=== PATIENT | male | born 1950 | race Caucasian/White ===

== ENCOUNTER 2020-08-03 16:25 | Outpatient (REF) | payer MEDICARE, SELFPAY | END 2020-08-03 16:26 | disposition home or self-care (01) | LOC: HO.LAB 16:25 | PROVIDERS: PCP Internal Medicine; Visit Provider Internal Medicine | DX: Z20.828 Contact with and (suspected) exposure to other viral communicable diseases (principal) | CPT/HCPCS: 87635 ==

== ENCOUNTER 2021-05-31 15:26 | Outpatient (REF) | payer MEDICARE, SELFPAY ==
[2021-05-31 15:50] LABS: MANUAL DIFF FLAG NO
[2021-05-31 15:56] LABS: Basophils Percent Auto 0.7 % (0-2); Eosinophils Absolute Auto 0.1 X10*3/uL (0.0-0.4); Hematocrit 51.4 % (42-52); Hemoglobin 17.1 g/dl (14.0-18.0); Imm Gran Abs Auto 0.01 X10*3/uL (0.00-0.03); Imm Gran Pct Auto 0.2 % (0.0-0.4); Lymphocytes Absolute Auto 1.9 X10*3/uL (1.2-4.9); Lymphocytes Percent Auto 32.3 % (20-40); Mean Corpuscular HGB Conc 33.3 g/dl (31.0-36.0); Mean Corpuscular Hemoglobin 32.3 pg (27.0-33.0); Mean Platelet Volume 8.7 fL (9.4-12.4); Monocytes Absolute Auto 0.8 X10*3/uL (0.1-1.2); Monocytes Percent Auto 12.7 % (2-11); Neutrophils Absolute Auto 3.2 X10*3/uL (2.0-8.3); Neutrophils Percent Auto 53.1 % (45-73); Platelet Count 275 X10*3/uL (160-400); Red Cell Distribution Width 13.7 % (11.0-16.0)
[2021-05-31 16:02] LABS: Estimated Average Glucose 120 mg/dL; Hemoglobin A1c % 5.8 %
[2021-05-31 16:12] LABS: Cholesterol 137 mg/dL; HDL Cholesterol 36 mg/dL; LDL Cholesterol Calculated 88 mg/dl; Triglycerides 67 mg/dL
[2021-05-31 16:46] LABS: Vitamin B12 235 pg/mL (200-900)
[2021-05-31 17:13] LABS: Free T4 (Free Thyroxine) 0.97 ng/dL (0.71-1.85); Thyroid Stimulating Hormone 2.36 uIU/mL (0.32-4.0)
[2021-05-31 17:20] LABS: Prostate Specific Antigen Scr 2.05 ng/mL (<0.05-4.0)
== END 2021-05-31 15:27 | disposition home or self-care (01) ==
LOC: HO.LAB 15:26
PROVIDERS: Visit Provider Internal Medicine
DX: I10 Essential (primary) hypertension (principal); R73.01 Impaired fasting glucose; E78.00 Pure hypercholesterolemia, unspecified; Z12.5 Encounter for screening for malignant neoplasm of prostate
CPT/HCPCS: 36415; 80061; 82607; 82746; 83036; 84153; 84439; 84443; 85025

== ENCOUNTER 2021-06-08 08:34 | Emergency (ER) | payer MEDICARE, SELFPAY ==
[2021-06-08 08:37] VITALS: BP 167/78; PULSE 83; RESP 16; TEMP 36.3; O2SAT 97; BMI 34.2
--- NOTE | 2021-06-08 10:01 | ED.MALEGU ---
HPI - Male Genitourinary General Chief complaint: Abdominal Pain Stated complaint: urinary pain Time Seen by Provider: 06/08/21 09:40 Source: patient Mode of arrival: ambulatory Limitations: no limitations History of Present Illness HPI Narrative: 70 yo male with past medical history of BPH on flomax, mild , HTN here with complaint of suprapubic discomfort, urinary urgency/frequency/voiding small amounts. No back pain, vomiting, diarrhea, fevers, chills, testicular pain. Related Data Home Medications Medication Instructions Recorded Confirmed tamsulosin 0.4 mg capsule 0.4 mg PO DAILY 10/29/20 03/12/21 Previous Rx's Medication Instructions Recorded amlodipine 10 mg tablet 10 mg PO DAILY #90 tab 03/12/21 atenolol 50 mg tablet 50 mg PO DAILY #90 tab 03/12/21 Allergies Allergy/AdvReac Type Severity Reaction Status Date / Time lisinopril Allergy Unknown cough Verified 06/08/21 08:37 Review of Systems Review of Systems: Yes all other systems are reviewed and are negative Constitutional: Constitutional: Reports no additional constitutional complaints, Denies body ache(s), Denies chills, Denies fever(s), Denies headache(s) and Denies weakness Eyes: Eyes: Reports no additional eye complaints and Denies change in vision ENT: Reports system reviewed and no additional complaints, except as documented, Denies dizziness, Denies headache(s), Denies nasal congestion, Denies nasal discharge and Denies neck pain Cardiovascular: Cardiovascular: Reports no additional cardiovascular complaints, Denies chest pain, Denies leg edema and Denies dyspnea Respiratory: Respiratory: Reports no additional respiratory complaints, Denies cough and Denies dyspnea Gastrointestinal: Gastrointestinal: Reports no additional gastrointestinal complaints, Denies abdominal pain, Denies diarrhea, Denies nausea and Denies vomiting Genitourinary: Genitourinary: Denies hematuria, Reports difficulty urinating, Denies flank pain, Denies penile discharge, Denies testicular pain, Reports urinary frequency, Reports urinary hesitancy, Denies urinary incontinence and Reports urinary urgency Musculoskeletal: Musculoskeletal: Reports no additional musculoskeletal complaints, Denies back pain, Denies arthralgias, Denies joint swelling, Denies neck pain, Denies numbness and Denies tingling Integumentary/Breasts: Skin/Breast: Reports system reviewed and no additional complaints, except as docu and Denies rash Neurologic: Reports system reviewed and no additional complaints, except as documented, Denies Abnormal speech present, Denies dizziness, Denies headache(s), Denies numbness, Denies tingling and Denies weakness PMFSH Past Medical History Attestation statement: The following information was validated with the patient. Source: old records reviewed and nursing notes reviewed Medical History Ascending aorta dilation Benign essential hypertension Benign prostatic hyperplasia Cataract LBBB (left bundle branch block) Obesity (BMI 30-39.9) Vitamin D deficiency Surgical History Deficient knowledge of scrotal surgery H/O meniscectomy of right knee History of arthroscopy of left knee History of inguinal hernia repair History of surgery Family History Family History Father Colon cancer Mother No problems noted. Maternal Grandfather Throat cancer Social History Social History Alcohol intake: current Alcohol intake frequency: holidays/special occasions only Patient Tobacco Use Status: Never used Tobacco Second Hand Smoke Exposure: No Advance Directives: Yes Advance Directives Information Provided: Yes Advance Directives on File: No Physical Exam Vital Signs: Vital Signs: Last Vital Signs Temp 97.3 F 06/08/21 08:37 Pulse 83 06/08/21 08:37 Resp 16 06/08/21 08:37 BP 167/78 H 06/08/21 08:37 Pulse Ox 97 06/08/21 08:37 Body Mass Index 34.2 Const: General: cooperative, healthy appearing, comfortable and no acute distress Orientation/consciousness: patient oriented x3 Limitations: no limitations HENMT: Head: Yes normal to inspection Ears: hearing grossly normal bilaterally General nose exam: Normal external nose present Face and sinus: Yes normal facial exam Mouth: Normal oral and palatal mucosa present Throat: Yes posterior oropharynx normal Eyes: General: appearance normal, both eyes and all related structures Pupils: Equal, round and reactive pupils present Neck: Neck: Yes normal visual inspection Chest: Chest palpation & inspection: normal inspection of the chest Resp: Effort & Inspection: normal respiratory effort Auscultation: clear to auscultation bilaterally Cardio: Rate: regular rate Rhythm: regular rhythm Peripheral pulses: Peripheral pulses 2+ throughout GI: Inspection: Yes normal to inspection Palpation (GI): Soft to palpation and nontender Auscultation: normal bowel sounds : General: Yes Bimanual renal exam normal bilaterally and Yes no CVA tenderness Male General Exam: Yes normal external exam Penis: normal penis Meatus: meatus normal Scrotum: scrotum normal Testes: Testes normal Back/Spine/Pelvis: Back: no CVA tenderness Thoracic/Lumbar Spine: thoracic and lumbar spine normal to inspection Skin: General skin exam: no rashes or lesions noted Neuro: General: patient oriented x3, no focal motor deficits and normal sensation to monofilament Cranial nerves: Yes Equal, round and reactive pupils present Cognition (Neuro): normal cognition Speech: No Abnormal speech present Gait exam (Neuro): Normal gait present Motor exam (neuro): 5/5 motor strength present throughout Extrem: General: Yes normal to inspection, Yes no pedal edema and Yes no calf tenderness Course Course Course Narrative: 70 yo male here with complaints of suprapubic discomfort, urinary frequency/urgency/dribbling since last evening. H/o bph on flomax. Initial bladder scan >800ml. Patient went to bathroom after and repeat 500ml. C/o suprapubic pain and pressure as well as dysuria after voiding. We discussed frey catheter placement, checking UA and labs. 1230-labs unremarkable. Initial UA shows no signs of infection. A urine culture was sent. Patient is feeling much improved after Frey catheter was placed. Will send home with Frey care instructions. Recommend follow-up with Urology. Reviewed worrisome signs and symptoms of when to return to the emergency department. Comfortable discharge home. MDM - Male Genitourinary MDM Narrative Medical decision making narrative: BPH Differential Diagnosis Differential diagnosis: Likely urinary tract infection Medical Records Attestation: I reviewed the patient's medical records. Lab Data Attestation: I reviewed the patient's lab results. Result diagrams: 06/08/21 11:00 06/08/21 10:37 Labs: Lab Results 06/08/21 06/08/21 06/08/21 Range/Units 10:34 10:37 11:00 WBC 7.8 (4.8-10.8) X10*3/uL RBC 5.13 (4.60-5.80) X10*6/uL Hgb 16.6 (14.0-18.0) g/dl Hct 48.4 (42-52) % MCV 94.3 (80-98) fL MCH 32.4 (27.0-33.0) pg MCHC 34.3 (31.0-36.0) g/dl RDW 13.4 (11.0-16.0) % Plt Count 278 (160-400) X10*3/uL MPV 8.6 L (9.4-12.4) fL Immature Gran % (Auto) 0.4 (0.0-0.4) % Neut % (Auto) 72.6 (45-73) % Lymph % (Auto) 17.4 L (20-40) % [place] % (Auto) 9.1 (2-11) % Eos % (Auto) 0.1 (0-4) % Baso % (Auto) 0.4 (0-2) % Lymph # (Auto) 1.4 (1.2-4.9) X10*3/uL [place] # (Auto) 0.7 (0.1-1.2) X10*3/uL Eos # (Auto) 0.0 (0.0-0.4) X10*3/uL Baso # (Auto) 0.0 (0.0-0.2) X10*3/uL Abs Immat Gran (auto) 0.03 (0.00-0.03) X10*3/uL Absolute Neuts (auto) 5.6 (2.0-8.3) X10*3/uL Absolute Nucleated RBC 0.000 (0.0-0.012) X10*3/uL Nucleated RBC % (auto) 0.0 (0.0-0.2) /100WBC Sodium 142 (135-145) mmol/L Potassium 4.4 (3.3-5.1) mmol/L Chloride 108 (96-108) mmol/L Carbon Dioxide 27 (22-29) mmol/L Anion Gap 11 L (12-20) BUN 8 L (9-16) mg/dL Creatinine 0.86 (0.5-1.4) mg/dL Estim Creat Clear Calc 102.7 Estimated GFR > 60 Random Glucose 124 H (60-115) mg/dL Calcium 9.1 (8.4-10.2) mg/dL Urine Color YELLOW Urine Appearance HAZY Urine pH 6.0 (5.0-8.0) Ur Specific [place] 1.020 (1.005-1.025) Urine Protein NEG (NEG-TRACE) MG/DL Urine Glucose (UA) NEG (NEG) MG/DL Urine Ketones NEG (NEG) MG/DL Urine Blood 2+ H (NEG) Urine Nitrite NEG (NEG) Ur Leukocyte Esterase NEG (NEG) Urine RBC 5-9 H (0) /HPF Urine WBC 0 (0-4) /HPF Ur Squamous Epith Cells NONE /LPF Urine Bacteria NONE /LPF Discharge Plan Discharge Clinical Impression: Acute urinary retention Patient Disposition: Home, Self-Care Instructions: Urinary Retention in Men (ED), Enlarged Prostate (BPH) (ED) Additional Instructions: Your initial urine does not show any signs of infection. I have sent a urine culture which will take 1-2 days. We will call you if treatment is needed. The frey catheter must remain in place. Call Dr Bryant office Thursday morning to make an appointment. Prescriptions: No Action amlodipine 10 mg tablet 10 mg PO DAILY Qty: 90 RF: 2 atenolol 50 mg tablet 50 mg PO DAILY Qty: 90 RF: 2 tamsulosin 0.4 mg capsule 0.4 mg PO DAILY RF: 0 Referrals: Willi Bryant MD [Physician] - 2 days Interventions: ED Discharge Assessment Last Done: 06/08/21 12:31 Discharge Date/Time: 06/08/21 12:32
--- NOTE | 2021-06-08 10:30 | PC.NURSE ---
Pt alert and oriented x3. Pt c/o of suprapubic discomfort, both urinary urgency and frequency as well as voiding small amounts. He denies back pain, v/d, fevers, chills. Pt was bladder scanned prior to voiding and it showed 700 mls. Post void residual was 439 ml. FC placed and drained 500 ml. Provider made aware. Pt resting quietly, no apparent distress noted. His is at his bedside.
[2021-06-08 10:43] LABS: Glucose Urine UA NEG (NEG); Leukocyte Esterase Urine NEG (NEG); Nitrite Urine NEG (NEG); UACC Culture Trigger NO; Urine Blood 2+ (NEG); Urine Ketones NEG (NEG); Urine Protein NEG (NEG-TRACE)
[2021-06-08 10:44] LABS: Appearance Urine HAZY; Color Urine YELLOW
[2021-06-08 10:54] LABS: WBC Urine 0 /HPF (0-4)
[2021-06-08 11:03] LABS: MANUAL DIFF FLAG NO
[2021-06-08 11:08] LABS: Basophils Percent Auto 0.4 % (0-2); Eosinophils Percent Auto 0.1 % (0-4); Hematocrit 48.4 % (42-52); Hemoglobin 16.6 g/dl (14.0-18.0); Imm Gran Abs Auto 0.03 X10*3/uL (0.00-0.03); Imm Gran Pct Auto 0.4 % (0.0-0.4); Lymphocytes Absolute Auto 1.4 X10*3/uL (1.2-4.9); Lymphocytes Percent Auto 17.4 % (20-40); Mean Corpuscular HGB Conc 34.3 g/dl (31.0-36.0); Mean Corpuscular Hemoglobin 32.4 pg (27.0-33.0); Mean Corpuscular Volume 94.3 fL (80-98); Mean Platelet Volume 8.6 fL (9.4-12.4); Monocytes Absolute Auto 0.7 X10*3/uL (0.1-1.2); Monocytes Percent Auto 9.1 % (2-11); Neutrophils Absolute Auto 5.6 X10*3/uL (2.0-8.3); Neutrophils Percent Auto 72.6 % (45-73); Platelet Count 278 X10*3/uL (160-400); Red Blood Count 5.13 X10*6/uL (4.60-5.80); Red Cell Distribution Width 13.4 % (11.0-16.0); White Blood Count 7.8 X10*3/uL (4.8-10.8)
[2021-06-08 11:12] LABS: Anion Gap 11 (12-20); Blood Urea Nitrogen 8 mg/dL (9-16); Calcium 9.1 mg/dL (8.4-10.2); Carbon Dioxide 27 mmol/L (22-29); Chloride 108 mmol/L (96-108); Creatinine Clr Calc Pharmacy 102.7; Estimated Glomerular Filt Rate > 60; Glucose Random 124 mg/dL (60-115); Potassium 4.4 mmol/L (3.3-5.1); Sodium 142 mmol/L (135-145)
--- NOTE | 2021-06-08 12:30 | PC.NURSE ---
Pt got a F/C placed, emptied 550 ml urine from frey. Leg bag applied prior to discharge. Pt and educated on how to use leg bag. Both verbalized understanding.
== END 2021-06-08 12:32 | disposition home or self-care (01) ==
PROVIDERS: Nurse Practitioner Family; Emergency Provider Emergency Medicine; PCP Internal Medicine
DX: R33.9 Retention of urine, unspecified (principal); I10 Essential (primary) hypertension
CPT/HCPCS: 36415; 51702; 51798; 80048; 81001; 85025; 87086; 99283; 99284

== ENCOUNTER 2021-06-09 16:41 | Emergency (ER) | payer MEDICARE, SELFPAY ==
[2021-06-09 16:50] VITALS: BP 130/61; PULSE 65; RESP 18; TEMP 36.9; O2SAT 94; BMI 33.5
[2021-06-09 17:06] LABS: Glucose Urine UA NEG (NEG); Leukocyte Esterase Urine NEG (NEG); Nitrite Urine NEG (NEG); Specific Gravity - Urine >= 1.030 (1.005-1.025); UACC Culture Trigger NO; Urine Blood 3+ (NEG); Urine Ketones NEG (NEG); Urine Protein 2+ MG/DL (NEG-TRACE)
[2021-06-09 17:07] LABS: Appearance Urine HAZY; Color Urine YELLOW
[2021-06-09 17:20] LABS: Bacteria Urine TRACE /LPF; Calcium Oxalate Crystals Urine 1+ /LPF; Squamous Epithelial Cell Urine 1+ /LPF; WBC Urine 0-2 /HPF (0-4)
[2021-06-09 18:00] VITALS: BP 120/63; PULSE 62; RESP 16; TEMP 36.8; O2SAT 95
--- NOTE | 2021-06-09 18:36 | ED.MALEGU ---
HPI - Male Genitourinary General Chief complaint: Urogenital-Male Stated complaint: Blood in urine Source: patient Mode of arrival: ambulatory Limitations: no limitations History of Present Illness HPI Narrative: 70-year-old male presents with difficulty urinating, has a Fagan cath in place that was put in by this emergency department on 06/08/2021. States that it andre, he feels pressure in his bladder, and noticed small streaks of blood and clots in his urine. Does not describe any fevers, chills, palpitations, dizziness, weakness, abdominal pain, abdominal distention, nausea, vomiting, diarrhea, constipation, or any other concerning symptoms. MD Complaint: dysuria Onset (ago): day(s) (1) Duration: constant Location: penis Radiation: penis Severity: moderate Quality: burning Relieving factors: none Exacerbating factors: urination and movement Context: indwelling catheter Associated symptoms: Reports denies other symptoms Related Data Home Medications Medication Instructions Recorded Confirmed tamsulosin 0.4 mg capsule 0.4 mg PO DAILY 10/29/20 03/12/21 Previous Rx's Medication Instructions Recorded amlodipine 10 mg tablet 10 mg PO DAILY #90 tab 03/12/21 atenolol 50 mg tablet 50 mg PO DAILY #90 tab 03/12/21 phenazopyridine 200 mg tablet 200 mg PO TID PRN #12 tab 06/09/21 (Pyridium) Allergies Allergy/AdvReac Type Severity Reaction Status Date / Time lisinopril AdvReac Intermediate cough Verified 06/09/21 16:50 Review of Systems Review of Systems: Constitutional: No Fever, No Chills ENT/Mouth: No Ear Pain, No Hoarseness, No sore throat Eyes: No Eye Pain, No Swelling, No Redness, No Foreign Body Cardiovascular: No Chest Pain, No SOB Respiratory: No Cough, No Dyspnea Gastrointestinal: No Nausea, No Vomiting, No Diarrhea, No abdominal Pain Genitourinary: Positive bladder pain, positive Dysuria, positive Hematuria Musculoskeletal: No joint pain, No Myalgias, No Joint Swelling Skin: No Skin lacerations, No rash Neuro: No Weakness, No Numbness, No Paresthesias, No Loss of Consciousness, No Dizziness, No Headache Psych: No Anxiety/Panic, No Depression Heme/Lymph: no easy bruising, no Lymphadenopathy Endocrine: No Polyuria, No Polydipsia Yes all other systems are reviewed and are negative [facility] Past Medical History Attestation statement: The following information was validated with the patient. Source: old records reviewed Medical History Ascending aorta dilation Benign essential hypertension Benign prostatic hyperplasia Cataract LBBB (left bundle branch block) Obesity (BMI 30-39.9) Vitamin D deficiency Surgical History Deficient knowledge of scrotal surgery H/O meniscectomy of right knee History of arthroscopy of left knee History of inguinal hernia repair History of surgery Family History Family History Father Colon cancer Mother No problems noted. Maternal Grandfather Throat cancer Social History Social History Alcohol intake: current Alcohol intake frequency: holidays/special occasions only Patient Tobacco Use Status: Never used Tobacco Second Hand Smoke Exposure: No Advance Directives: No Advance Directives Information Provided: No Physical Exam Vital Signs: Vital Signs: Last Vital Signs Temp 98.3 F 06/09/21 18:00 Pulse 62 06/09/21 18:00 Resp 16 06/09/21 18:00 BP 120/63 06/09/21 18:00 Pulse Ox 95 06/09/21 18:00 Body Mass Index 33.5 Appearance: Alert. Oriented X3. No acute distress. Eyes: Pupils equal, round and reactive to light. ENT: Pharynx normal. Neck: Normal inspection. Neck supple. CVS: Normal heart rate and rhythm. Pulses normal. Respiratory: No respiratory distress. Breath sounds normal. Abdomen: Soft and nontender. No palpable bladder Genitourinary: Meatus non erythematous, Fagan cath in place, no heme noted to meatus. Skin: Skin warm and dry. Normal skin color. Normal skin turgor. Extremities: No lower extremity edema. Neuro: No motor deficit. No sensory deficit. Course Course Course Narrative: 70-year-old male presents with pain and burning secondary to urinary Fagan. Patient's Fagan is not adhered to his leg properly, will apply Fagan catheterization support to the leg. Urine is clear, Fagan is patent, there are a few strands of heme noted but no indication of occlusion. Will prescribe Pyridium for bladder spasms and pain. Patient will follow-up with Dr. Bryant tomorrow. Patient is afebrile, appears nontoxic, and has no other complaints. Patient verbalized understanding of and agrees to plan of care discharge home. MDM - Male Genitourinary MDM Narrative Medical decision making narrative: Fagan Medical Records Attestation: I reviewed the patient's medical records. Lab Data Attestation: I reviewed the patient's lab results. Labs: Lab Results 06/09/21 Range/Units 16:55 Urine Color YELLOW Urine Appearance HAZY Urine pH 6.0 (5.0-8.0) Ur Specific [place] >= 1.030 H (1.005-1.025) Urine Protein 2+ H (NEG-TRACE) MG/DL Urine Glucose (UA) NEG (NEG) MG/DL Urine Ketones NEG (NEG) MG/DL Urine Blood 3+ H (NEG) Urine Nitrite NEG (NEG) Ur Leukocyte Esterase NEG (NEG) Urine RBC 76-150 H (0) /HPF Urine WBC 0-2 (0-4) /HPF Ur Squamous Epith Cells 1+ /LPF Calcium Oxalate Crystal 1+ /LPF Urine Bacteria TRACE /LPF Discharge Plan Discharge Clinical Impression: Bladder spasm Complication of Fagan catheter Qualifiers: Encounter type: initial encounter Qualified Code(s): T83.9XXA - Unspecified complication of genitourinary prosthetic device, implant and graft, initial encounter Patient Disposition: Home, Self-Care Instructions: Fagan Catheter Placement and Care (ED) Additional Instructions: You were evaluated for small stringy blood clots, bladder pain, and burning after Fagan catheter placement yesterday. Your symptoms are consistent with a Fagan catheter placement. The pain in her bladder is because of the pulling from the balloon that keep the Fagan catheter in place. We placed a fixation device to your leg to try to reduce the pulling on that balloon. The burning pain that you are experiencing is because of the Fagan catheter inside the urinary meatus. Please follow the directions for Fagan catheter cleaning and care. We prescribed Pyridium, this medication will help you with your bladder spasms. This medication will also turn your urine bright orange. Please continue to follow with Dr. Bryant tomorrow morning. Thank you for choosing this emergency department for evaluation. Please follow-up with primary care physician as needed. Return to the emergency department for any new, concerning, or worsening symptoms. Prescriptions: New phenazopyridine [Pyridium] 200 mg tablet 200 mg PO TID PRN (Reason: pain) Qty: 12 RF: 0 No Action amlodipine 10 mg tablet 10 mg PO DAILY Qty: 90 RF: 2 atenolol 50 mg tablet 50 mg PO DAILY Qty: 90 RF: 2 tamsulosin 0.4 mg capsule 0.4 mg PO DAILY RF: 0 Interventions: ED Discharge Assessment Last Done: 06/09/21 19:00 Discharge Date/Time: 06/09/21 19:12
--- NOTE | 2021-06-09 18:50 | PC.NURSE ---
patient out put is 200 ml
[2021-06-09] MEDS: Phenazopyridine HCL 200 MG TABLET PO (18:57)
== END 2021-06-09 19:12 | disposition home or self-care (01) ==
PROVIDERS: Emergency Provider Internal Medicine; PCP Internal Medicine
DX: R31.9 Hematuria, unspecified (principal); Z79.899 Other long term (current) drug therapy; N32.89 Other specified disorders of bladder
CPT/HCPCS: 51702; 81001; 99284

== ENCOUNTER → 2021-06-12 10:58 | Outpatient (BNVA) | payer MEDICARE, SELFPAY | PROVIDERS: PCP Internal Medicine; Visit Provider Urology | DX: N40.0 Benign prostatic hyperplasia without lower urinary tract symptoms (principal) | CPT/HCPCS: 51700 ==

== ENCOUNTER → 2021-06-21 08:40 | Outpatient (BNVA) | payer MEDICARE, SELFPAY | PROVIDERS: PCP Internal Medicine; Visit Provider Urology | DX: N32.0 Bladder-neck obstruction (principal); R33.9 Retention of urine, unspecified | CPT/HCPCS: 51700; 51798; 99202 ==

== ENCOUNTER → 2021-07-15 10:18 | Outpatient (REF) | payer MEDICARE, SELFPAY ==
--- NOTE | 2021-07-15 10:22 | CA_ITS ---
Transthoracic Echocardiogram Patient (Last, First, Middle): Tenzin Armando, Gender: Male Date of : 1950 Age: 70 Procedure Date: 07/15/2021 Procedure Type: Transthoracic Echocardiogram Location: OP Height: 180.34 cm Weight: 111.13 kg BSA: 2.30 m2 Heart Rate: bpm BP: 40 / 78 mmHg Fuel Handler: LEONOR Referring MD: Cathie Ruano MD Symptoms: I77.810 - Thoracic aortic ectasia Study Quality: Fair ECG Rhythm: Atrial Fibrillation Conclusions: - The left ventricular systolic function is normal. The calculated ejection fraction is 57% by biplane method. - There is mild to moderate aortic valve stenosis. - There is mild mitral valve regurgitation. - Mild pulmonary hypertension is present. - There is mild dilatation of the ascending aorta measuring 4.00 cm. Findings Left Ventricle Normal left ventricular cavity size. There is moderately increased left ventricular wall thickness. The left ventricular systolic function is normal. The calculated ejection fraction is 57% by biplane method. Regional wall motion abnormalities can not be excluded due to suboptimal endocardial definition. Diastolic function is indeterminate on the basis of available data. Right Ventricle Normal right ventricular cavity size and systolic function. Atria The left atrium is severely dilated. (HUNTER by 3D 57ml/m2). The right atrium is normal in size. Aortic Valve There is severe calcification of the aortic valve. There is mild to moderate aortic valve stenosis. The peak aortic velocity is 2.78 m/s with a calculated peak gradient of 31 mmHg. The mean gradient is 18 mmHg. The aortic valve area is 1.29 cm2. There is mild aortic valve regurgitation. Mitral Valve The mitral valve appears normal. There is mild mitral valve regurgitation. There is no mitral valve stenosis. Pulmonic Valve The pulmonic valve was not well visualized. Tricuspid Valve Normal tricuspid valve structure. There is trace tricuspid valve regurgitation. The right ventricular systolic pressure is 45 mmHg. Mild pulmonary hypertension is present. Great Vessels There is mild dilatation of the ascending aorta measuring 4.00 cm. Venous The inferior vena cava is normal in size and collapses less than 50% with inspiration. Pericardium/Pleural There is no evidence of pericardial effusion. Prior Study Comparison No significant change compared to prior study dated: 06/25/2020. Measurements 2D Linear Measurements IVSd: 1.58 0.6-0.9/0.6-1.0 cm LVIDd: 4.48 3.9-5.3/4.2-5.9 cm LVIDd Index: 1.95 2.4-3.2/2.2-3.1 cm/m2 LVIDs: 2.86 2.0-3.6 cm LVPWd: 1.29 0.7-1.1 cm Ao Root: 3.20 2.1-3.5 cm LA Diam: 4.80 2.7-3.8/3.0-4.0 cm LAIDs Index: 2.09 1.5-2.3 cm/m2 LV Mass: 319.44 67-162/88-224 g LV Mass Index: 138.89 43-95/49-115 g/m2 LVOT Diam: 1.90 3.0+(-)1.3 cm 2D Systolic Function EF 4C: 55.70 >55% EF 2C: 55.60 >55% EF BiP: 56.80 >55% Mitral Valve MV Pk E: 0.85 MV PK A: 0.79 MV Decel Time: 111.00 E/A: 1.10 E'Lateral: 10.30 E'Medial: 6.42 E/E' Med: 13.20 E/E' Lat: 8.20 PHT: 33.00 MVA PHT: 6.67 Decel [place]: 7.61 Aortic Valve AoV Pk Herbert: 2.78 AoV Mn Herbert: 2.00 AoV VTI: 0.58 AoV Pk Grad: 31.00 Aov Mn Grad: 18.00 SHANDRA Cont.VTI: 1.29 AI Pk Herbert: 4.84 AI [place]: 2.00 LVOT LVOT Pk Herbert: 1.21 LVOT Mn Herbert: 0.84 LVOT VTI: 0.26 LVOT Pk Grad: 6.00 LVOT Mn Grad: 3.00 LVOT Diam: 1.90 LVOT Area: 2.84 Diastolic Function MV Pk E: 0.85 MV Pk A: 0.79 E/A: 1.10 E'Medial: 6.42 E/E' Med: 13.20 E' Laterial: 10.30 E/E' Lat: 8.20 Tricuspid Valve TR Pk Herbert: 3.04 TR Pk Grad: 37.00 RA Press: 8.00 RVSP: 45.00 Great Vessels Aorta Ao Root-2D: 3.20 2.0-3.7 cm Ao Asc: 4.00 2.1-3.4 cm Updated in Other Vendor System with Status of Final Fili Carvajal MD electronically signed on 07/15/2021 12:29:04 PM with status of Final
== END ==
LOC: HO.CARD 10:18
PROVIDERS: Visit Provider Internal Medicine
DX: I77.810 Thoracic aortic ectasia (principal)
CPT/HCPCS: 93306

== ENCOUNTER → 2021-07-29 10:59 | Outpatient (REF) | payer MEDICARE, SELFPAY ==
--- NOTE | 2021-07-29 | ECG_ITS ---
Hook-up date: 2021-07-29 15:49:00 Duration: 47:08:00 Test Indications: PAF Medications: 23257 QRS complexes 46 Ventricular ectopics which represent <1 % of total QRS comp. * Supraventricular ectopics which represent % of total QRS comp. * Paced QRS complexs which represent % of total QRS comp. VENTRICULAR ECTOPY 36 Isolated 0 Bigeminal Cycles 2 Couplets 2 Runs 6 Beats in Runs 3 Beats LONGEST at 91 BPM at 21:00:51 2021-07-29 3 Beats FASTEST at 91 BPM at 21:00:51 2021-07-29 SUPRAVENTRICULAR ECTOPY * Isolated * Couplets * Runs * Beats in Runs * Beats LONGEST at * BPM at :: -- * Beats FASTEST at * BPM at :: -- HEART RATES 34 MIN at 04:53:42 2021-07-30 57 AVG 105 MAX at 15:51:33 2021-07-29 LONGEST RR 3.0480 secs at 04:25:54 2021-07-30 S-T LEVELS Channel 1 - 128 mm at 15:49:00 2021-07-29 - 128 mm at 15:49:00 2021-07-29 Channel 2 - 128 mm at 15:49:00 2021-07-29 - 128 mm at 15:49:00 2021-07-29 Channel 3 - 128 mm at 03:50:81 -- - 128 mm at 03:50:81 Basic rhythm Atrial fibrillation Baseline BBB Frequent slow VR to AF with average HR of 57 BPM and 66% of time HR < 60 bpm Rare Premature ventricular complexes No diary submitted Referred By: Berny Kwon Overread By: BRIANDA SANTANA MD
== END ==
LOC: HO.CARD 10:59
PROVIDERS: Visit Provider Internal Medicine Cardiovascular Disease
DX: I48.19 Other persistent atrial fibrillation (principal)
CPT/HCPCS: 93226

== ENCOUNTER → 2021-07-29 14:25 | Outpatient (BNVA) | payer MEDICARE, SELFPAY | PROVIDERS: PCP Internal Medicine; Referring Provider Internal Medicine; Visit Provider Internal Medicine Cardiovascular Disease | DX: I48.0 Paroxysmal atrial fibrillation (principal); I10 Essential (primary) hypertension | CPT/HCPCS: 93005; 99212 ==

== ENCOUNTER → 2021-08-20 09:35 | Outpatient (BNVA) | payer MEDICARE, SELFPAY | PROVIDERS: PCP Internal Medicine; Visit Provider Urology | DX: N32.0 Bladder-neck obstruction (principal); R39.12 Poor urinary stream | CPT/HCPCS: 52000; 99212 ==

== ENCOUNTER 2021-09-09 11:44 | Emergency (ER) | payer MEDICARE, SELFPAY ==
--- NOTE | ~2021-09-09 | US_ITS ---
EXAMINATION: US VENOUS ULTRASOUND WITH DOPPLER LOWER EXTREMITY, LEFT CLINICAL INFORMATION: Pain COMPARISON: Previous exam November 2016 TECHNIQUE: Ultrasound of the deep veins is performed from the hip to the calf with compression sonography and color and pulse Doppler assessment. Spectral analysis with color-flow imaging is performed. FINDINGS: There is normal venous compression and respiratory variation and augmented flow. The visualized common femoral vein, superficial femoral vein, profunda femoral vein, popliteal vein, and the trifurcation region shows no evidence of deep venous thrombosis. There is no popliteal fossa cyst. There is shotty left inguinal lymphadenopathy similar to previous exam. US/US venous duplex LE LT IMPRESSION: No DVT demonstrated in the left lower extremity.
[2021-09-09 12:58] VITALS: BP 126/78; PULSE 59; RESP 17; TEMP 36.8; O2SAT 95; BMI 34.2
--- NOTE | 2021-09-09 13:36 | ED.GENADULT ---
HPI - General Adult General Chief complaint: General Medical Stated complaint: lt leg pain, rule out dvt Time Seen by Provider: 09/09/21 13:10 Source: patient Mode of arrival: ambulatory History of Present Illness HPI narrative: 71-year-old male with a past medical history of HTN, BPH, LBBB on Eliquis, sent to ED from urgent care for rule out DVT, patient reports left thigh/posterior knee pain x2 weeks s/p working in the yard. States pain worse with movement. Patient believes he pulled a muscle/hamstring, denies known injury, trauma, or fall. Reports pain now radiating up LLE to low back. Denies numbness, tingling, weakness, urinary incontinence/retention, fever, chills. Reports compliance with Eliquis. Denies SOB/CP. Onset (ago): week(s) Radiation: back and extremity Severity: moderate Quality: sharp Exacerbating factors: movement Related Data Home Medications Medication Instructions Recorded Confirmed terazosin 5 mg capsule 5 mg PO BID cap 08/20/21 Previous Rx's Medication Instructions Recorded amlodipine 10 mg tablet 10 mg PO DAILY #90 tab 03/12/21 atenolol 50 mg tablet 50 mg PO DAILY #90 tab 03/12/21 apixaban 5 mg tablet 5 mg PO BID #60 tab 07/29/21 finasteride 5 mg tablet 5 mg PO DAILY 90 Days #90 tab 08/20/21 terazosin 10 mg capsule 10 mg PO BEDTIME 90 Days #90 cap 08/20/21 acetaminophen 500 mg tablet 500 mg PO Q6H PRN #20 tab 09/09/21 (Tylenol Extra Strength) cyclobenzaprine 5 mg tablet 5 mg PO Q8H PRN 5 Days #14 tab 09/09/21 lidocaine 5 % topical patch 1 patch TOPICAL DAILY PRN #30 ea 09/09/21 (Lidoderm) MDD remove after 12 hours Allergies Allergy/AdvReac Type Severity Reaction Status Date / Time lisinopril AdvReac Intermediate cough Verified 09/09/21 12:58 Review of Systems Review of Systems: Constitutional: No Fever, No Chills, No Fatigue, No Malaise ENT/Mouth: No Ear Pain, No Nasal Congestion, No sore throat Eyes: No Eye Pain, No Swelling, No Redness Cardiovascular: No Chest Pain, No SOB, No Edema Respiratory: No Cough, No Dyspnea Gastrointestinal: No Nausea, No Vomiting, No Diarrhea, No Constipation, No Abdominal pain Genitourinary: No Dysuria, No Urinary Frequency, No Hematuria, No Urgency, No Flank Pain Musculoskeletal: + joint pain, No Myalgias, No Joint Swelling Skin: No Skin Lesions, No rash Neuro: No Weakness, No Numbness, No Paresthesias Yes all other systems are reviewed and are negative [facility] Past Medical History Attestation statement: The following information was validated with the patient. Medical History Ascending aorta dilation Benign essential hypertension Benign prostatic hyperplasia Cataract LBBB (left bundle branch block) Obesity (BMI 30-39.9) Vitamin D deficiency Surgical History Deficient knowledge of scrotal surgery H/O meniscectomy of right knee History of arthroscopy of left knee History of cataract surgery History of colonoscopy History of inguinal hernia repair History of surgery Family History Family History Father Colon cancer Mother No problems noted. Maternal Grandfather Throat cancer Social History Social History Alcohol intake: current Alcohol intake frequency: holidays/special occasions only Patient Tobacco Use Status: Never used Tobacco Second Hand Smoke Exposure: No Advance Directives: No Advance Directives Information Provided: Yes Physical Exam Vital Signs: Vital Signs: Last Vital Signs Temp 98.2 F 09/09/21 12:58 Pulse 59 09/09/21 12:58 Resp 17 09/09/21 12:58 BP 126/78 09/09/21 12:58 Pulse Ox 95 09/09/21 12:58 Body Mass Index 34.2 Const: General: cooperative, healthy appearing and no acute distress Orientation/consciousness: patient oriented x3 Limitations: no limitations HENMT: Head: Yes normal to inspection Ears: hearing grossly normal bilaterally General nose exam: Normal external nose present Face and sinus: Yes normal facial exam Eyes: General: appearance normal, both eyes and all related structures EOM: EOMs intact bilaterally Neck: Neck: Yes normal visual inspection and Yes no meningeal signs Resp: Effort & Inspection: normal respiratory effort Auscultation: clear to auscultation bilaterally, no rales, no rhonchi and no wheezes Cardio: Rate: regular rate Heart sounds: S1 normal heart sound present and S2 normal heart sound present Peripheral pulses: dorsalis pedis present GI: Inspection: Yes normal to inspection Back/Spine/Pelvis: Other: No midline thoracic/lumbar spinous tenderness Skin: Rashes: no rashes Wounds: no wounds Neuro: General: patient oriented x3 and no meningeal signs Gait exam (Neuro): Normal gait present Extrem: Other: + tenderness to palpation to posterior left knee. Limited full knee extension secondary to pain. Neurovascular intact distally. Sensation intact to light touch. 1+ bilateral LE edema Left Hip/pelvis stable, nontender, full range of motion intact. Left knee nontender General: Yes normal to inspection Course Course Course Narrative: US venous duplex LE LT IMPRESSION: No DVT demonstrated in the left lower extremity >> discussed with patient results, worrisome signs and symptoms and strict return precautions a need to follow-up with PCP/orthopedics as needed Medical Decision Making MDM Narrative Medical decision making narrative: 71-year-old male with a past medical history of HTN, BPH, LBBB on Eliquis, sent to ED from urgent care for rule out DVT, patient reports left thigh/posterior knee pain x2 weeks s/p working in the yard. On exam vital signs stable, NAD/nontoxic, lungs CTA, physical exam as above. Concern for muscle strain/ spasming vs sciatica vs ? DVT although patient anticoagulated plan: Venous duplex ultrasound Discharge Plan Discharge Clinical Impression: Muscle strain of left thigh Patient Disposition: Home, Self-Care Instructions: Hamstring Injury (ED) Additional Instructions: Your ultrasound was unremarkable Your pain is likely musculoskeletal strain/sprain Flexeril is a muscle relaxer, take at night as it makes you drowsy, do not drive, drink alcohol, or operate machinery while taking it Lidoderm patches are numbing patches, apply to painful area In addition take Tylenol at home Please follow-up with her doctor and Orthopedics as needed. If symptoms persist or worsen/pain becomes unbearable please return to the ED Prescriptions: New acetaminophen [Tylenol Extra Strength] 500 mg tablet 500 mg PO Q6H PRN (Reason: pain or fever) Qty: 20 RF: 0 lidocaine [Lidoderm] 5 % adhesive patch,medicated 1 patch topical DAILY MDD remove after 12 hours PRN (Reason: pain) Qty: 30 RF: 0 cyclobenzaprine 5 mg tablet 5 mg PO Q8H PRN (Reason: pain (scale score 7-10)) 5 Days Qty: 14 RF: 0 No Action amlodipine 10 mg tablet 10 mg PO DAILY Qty: 90 RF: 2 atenolol 50 mg tablet 50 mg PO DAILY Qty: 90 RF: 2 finasteride 5 mg tablet 5 mg PO DAILY 90 Days Qty: 90 RF: 1 apixaban 5 mg tablet 5 mg PO BID Qty: 60 RF: 4 terazosin 10 mg capsule 10 mg PO BEDTIME 90 Days Qty: 90 RF: 1 Referrals: Po,Cathie Beltran MD [Primary Care Provider] - 2 days Mumtaz Oro MD [Physician] - 1 week
[2021-09-09] MEDS: Cyclobenzaprine HCl 5 MG TABLET PO (15:37)
== END 2021-09-09 15:43 | disposition home or self-care (01) ==
PROVIDERS: Emergency Provider Emergency Medicine; PCP Internal Medicine
DX: M79.605 Pain in left leg (principal); R60.0 Localized edema; Z79.899 Other long term (current) drug therapy
CPT/HCPCS: 93971; 99283; 99284

== ENCOUNTER 2021-09-16 13:57 | Outpatient (REF) | payer MEDICARE, SELFPAY ==
--- NOTE | ~2021-09-16 | XR_ITS ---
EXAMINATION: XR KNEE, BILATERAL XR KNEE, LEFT CLINICAL INFORMATION: Pain COMPARISON: 09/24/2018 TECHNIQUE: AP standing view of both knees. Lateral and sunrise views of the left knee. FINDINGS: Left knee: No fracture or subluxation. Moderate medial compartment joint space narrowing. Tricompartmental marginal osteophytes are present. No joint effusion. Enthesophyte formation of the patella. Corticated ossification adjacent to the medial femoral condyle is unchanged, likely the sequela of prior MCL injury. Right knee: No fracture or subluxation. Mild medial compartment joint space narrowing with small marginal osteophytes at the medial and lateral compartments. XR/XR knee standing BI IMPRESSION: Tricompartmental degenerative changes of the left knee, greatest at the medial compartment. Progressive mild degenerative changes of the right knee.
--- NOTE | ~2021-09-16 | XR_ITS ---
EXAMINATION: XR KNEE, BILATERAL XR KNEE, LEFT CLINICAL INFORMATION: Pain COMPARISON: 09/24/2018 TECHNIQUE: AP standing view of both knees. Lateral and sunrise views of the left knee. FINDINGS: Left knee: No fracture or subluxation. Moderate medial compartment joint space narrowing. Tricompartmental marginal osteophytes are present. No joint effusion. Enthesophyte formation of the patella. Corticated ossification adjacent to the medial femoral condyle is unchanged, likely the sequela of prior MCL injury. Right knee: No fracture or subluxation. Mild medial compartment joint space narrowing with small marginal osteophytes at the medial and lateral compartments. XR/XR knee LT 2V IMPRESSION: Tricompartmental degenerative changes of the left knee, greatest at the medial compartment. Progressive mild degenerative changes of the right knee.
== END 2021-09-16 13:58 | disposition home or self-care (01) ==
LOC: HO.HOSX 13:57
PROVIDERS: Visit Provider Physician Assistant
DX: S76.312A Strain of muscle, fascia and tendon of the posterior muscle group at thigh level, left thigh, initial encounter (principal)
CPT/HCPCS: 73560; 73565; 99202

== ENCOUNTER → 2021-09-23 13:13 | Outpatient (BNVA) | payer MEDICARE, SELFPAY | PROVIDERS: PCP Internal Medicine; Referring Provider Internal Medicine; Visit Provider Internal Medicine Cardiovascular Disease | DX: I48.0 Paroxysmal atrial fibrillation (principal); I10 Essential (primary) hypertension | CPT/HCPCS: 99212 ==

== ENCOUNTER → 2021-10-17 14:31 | Outpatient (BNVA) | payer MEDICARE, SELFPAY | PROVIDERS: Visit Provider Orthopaedic Surgery | DX: I73.9 Peripheral vascular disease, unspecified (principal) | CPT/HCPCS: 99212 ==

== ENCOUNTER 2021-10-25 09:12 | Outpatient (REF) | payer MEDICARE, SELFPAY ==
--- NOTE | ~2021-10-25 | US_ITS ---
EXAMINATION: ULTRASOUND HUMBERTO COMPLETE CLINICAL INFORMATION: Peripheral vascular disease COMPARISON: None TECHNIQUE: Pulse volume recordings and ankle-brachial indices were performed. FINDINGS: Right: HUMBERTO is 0.68 suggestive of mild to moderate obstructive atherosclerotic disease. Right ankle pulse volume recording waveform is slightly dampened. Left: The left HUMBERTO is 1 which is normal. Left ankle pulse volume recording waveform is normal. US/US HUMBERTO complete IMPRESSION: The right HUMBERTO is 0.7 suggestive of mild to moderate obstructive atherosclerotic disease. The left HUMBERTO is normal.
== END 2021-10-25 09:13 | disposition home or self-care (01) ==
LOC: HO.US 09:12
PROVIDERS: Visit Provider Orthopaedic Surgery
DX: I73.9 Peripheral vascular disease, unspecified (principal)
CPT/HCPCS: 93923

== ENCOUNTER → 2021-10-31 15:12 | Outpatient (BNVA) | payer MEDICARE, SELFPAY | PROVIDERS: PCP Internal Medicine; Visit Provider Orthopaedic Surgery | DX: M23.92 Unspecified internal derangement of left knee (principal); M54.16 Radiculopathy, lumbar region | CPT/HCPCS: 99212 ==

== ENCOUNTER 2021-11-13 18:32 | Outpatient (REF) | payer MEDICARE, SELFPAY ==
--- NOTE | ~2021-11-13 | MR_ITS ---
EXAMINATION: MR KNEE WITHOUT CONTRAST, LEFT CLINICAL INFORMATION: Internal derangement of the knee. Patient reports prior meniscal surgery 2018 COMPARISON: X-ray 09/16/2021 TECHNIQUE: MRI of the knee without contrast was performed using routine sequences on a high-field scanner. FINDINGS: MENISCI: Medial Meniscus: T2 signal extending to the undersurface in the posterior horn suggestive of undersurface degenerative fraying. Small and thin caliber of the body, could represent postsurgical result. Lateral Meniscus: There is subtle thin low signal focus, extending anterior to the posterior root to the intercondylar region, reference image 6:14-16. This could represent a variant menisco-meniscal ligament, versus a displaced torn meniscal flap. The lateral meniscus otherwise appears intact. LIGAMENTS: Cruciate: Mucoid degeneration ACL. PCL is intact. Collateral: Mild thickening and intermediate signal in the proximal MCL suggesting sprain injury, of indeterminate age. LCL complex is intact. EXTENSOR MECHANISM: Intact ARTICULAR CARTILAGE/BONE: Patellofemoral Compartment: Nonuniform areas of cartilage thinning in the compartment, including areas of prominent cartilage thinning in the lateral and central trochlear. Marginal osteophytes. Medial Compartment: Mild cartilage thinning in the medial aspect of the compartment. Marginal osteophytes. Lateral Compartment: Focal cartilage thinning in the weightbearing femur. Tiny marginal osteophytes. JOINT FLUID AND BURSAE: Small effusion. Small Shields's cyst. MR/MR knee LT wo con IMPRESSION: 1. Undersurface degenerative fraying in the posterior horn medial meniscus. Findings in the body could represent postsurgical result, correlate for surgical history. 2. Findings in the intercondylar region, with signal changes extending anterior to the posterior root of the lateral meniscus. This could represent physiological variant menisco-meniscal ligament versus less likely from a subtle torn displaced meniscal flap. 3. Mucoid degeneration ACL. 4. Mild proximal PCL sprain of indeterminate age. 5. Moderate patellofemoral compartment, mild medial and lateral compartment arthritis. 6. Small effusion. Small Shields's cyst.
--- NOTE | ~2021-11-13 | MR_ITS ---
MR LUMBAR SPINE WITHOUT IV CONTRAST CLINICAL INFORMATION: Lumbar region radiculopathy. COMPARISON: None available. TECHNIQUE: MRI of the lumbar spine was obtained using routine sequences without contrast. FINDINGS: There is transitional anatomy and hypoplastic ribs versus articulating transverse processes considered at the lowermost thoracic type segment. 5 nonrib-bearing lumbar-type vertebral bodies are considered with the last fully developed intervertebral disc considered L5-S1. Please correlate with plain films prior to any percutaneous or surgical intervention. There is slight grade 1 anterolisthesis of L4 on L5. Modic type I endplate signal changes at L1-L2 and L5-S1. No additional bone marrow edema. No acute fractures. There is disc desiccation at all lumbar levels with exception of L1-L2. Mild to moderate disc volume loss at L5-S1. Conus terminates at the T12-L1 level. There is bilateral perinephric stranding. There are small shallow central disc protrusions at the T11-T12 and T12-L1 levels that mildly indent the ventral thecal sac at these levels. L1-L2: Posterior disc contour normal. No central canal stenosis and no foraminal stenosis. L2-L3: Small annular disc bulge and mild bilateral facet arthropathy. No central canal stenosis. Mild foraminal encroachment bilaterally. L3-L4: Diffuse annular disc bulge and moderate bilateral facet arthropathy. No central canal stenosis. Mild foraminal encroachment bilaterally. L4-L5: There is a left paracentral disc protrusion that compresses the traversing left L5 and left S1 nerve roots within the left subarticular zone. Mild to moderate central canal stenosis. Severe bilateral facet arthropathy and ligamentum flavum thickening. Mild bilateral foraminal encroachment L5-S1: Right and left lateral disc osteophyte protrusions resulting in mild to moderate bilateral foraminal stenosis, contacting the extraforaminal right greater than left L5 nerve roots. No central canal stenosis. MR/MR lumbar spine wo con IMPRESSION: - There is transitional anatomy and hypoplastic ribs versus articulating transverse processes considered at the lowermost thoracic type segment. 5 nonrib-bearing lumbar-type vertebral bodies are considered with the last fully developed intervertebral disc considered L5-S1. Please correlate with plain films prior to any percutaneous or surgical intervention. - At L4-L5, a left paracentral disc protrusion compresses the traversing left L5 and left S1 nerve roots within the left subarticular zone and results in mild to moderate central canal stenosis. Slight grade 1 degenerative anterolisthesis at this level in the setting of advanced bilateral facet arthropathy. - At L5-S1, there are right and left lateral disc osteophyte protrusions resulting in mild to moderate bilateral foraminal stenosis, contacting the extraforaminal right greater than left L5 nerve roots. No central canal stenosis.
== END 2021-11-13 18:33 | disposition home or self-care (01) ==
LOC: HO.MRI 18:32
PROVIDERS: PCP Internal Medicine; Visit Provider Orthopaedic Surgery
DX: M23.92 Unspecified internal derangement of left knee (principal); M54.16 Radiculopathy, lumbar region
CPT/HCPCS: 72148; 73721

== ENCOUNTER → 2021-11-22 10:17 | Outpatient (BNVA) | payer MEDICARE, SELFPAY | PROVIDERS: PCP Internal Medicine; Visit Provider Internal Medicine | DX: M48.062 Spinal stenosis, lumbar region with neurogenic claudication (principal); M23.92 Unspecified internal derangement of left knee | CPT/HCPCS: 99202 ==

== ENCOUNTER → 2021-12-09 09:10 | Outpatient (BNVA) | payer MEDICARE, SELFPAY | PROVIDERS: PCP Internal Medicine; Visit Provider Orthopaedic Surgery | DX: M23.92 Unspecified internal derangement of left knee (principal); M48.062 Spinal stenosis, lumbar region with neurogenic claudication | CPT/HCPCS: 99212 ==

== ENCOUNTER → 2022-01-13 09:35 | Outpatient (BNVA) | payer MEDICARE, SELFPAY | PROVIDERS: PCP Internal Medicine; Referring Provider Internal Medicine; Visit Provider Internal Medicine Cardiovascular Disease | DX: I10 Essential (primary) hypertension (principal); I48.0 Paroxysmal atrial fibrillation; I44.7 Left bundle-branch block, unspecified; I35.0 Nonrheumatic aortic (valve) stenosis; I77.819 Aortic ectasia, unspecified site; Z79.01 Long term (current) use of anticoagulants; Z79.899 Other long term (current) drug therapy | CPT/HCPCS: 93005; 99212 ==

== ENCOUNTER 2022-03-11 09:05 | Outpatient (REF) | payer MEDICARE, SELFPAY ==
[2022-03-11 09:46] LABS: MANUAL DIFF FLAG NO
[2022-03-11 10:08] LABS: Basophils Percent Auto 0.7 % (0-2); Eosinophils Absolute Auto 0.1 X10*3/uL (0.0-0.4); Eosinophils Percent Auto 1.4 % (0-4); Hematocrit 46.4 % (42.0-52.0); Hemoglobin 15.2 g/dl (14.0-18.0); Imm Gran Abs Auto 0.01 X10*3/uL (0.00-0.03); Imm Gran Pct Auto 0.2 % (0.0-0.4); Lymphocytes Absolute Auto 1.5 X10*3/uL (1.2-4.9); Lymphocytes Percent Auto 26.9 % (20-40); Mean Corpuscular HGB Conc 32.8 g/dl (31.0-36.0); Mean Corpuscular Hemoglobin 32.3 pg (27.0-33.0); Mean Corpuscular Volume 98.5 fL (80.0-98.0); Mean Platelet Volume 8.6 fL (9.4-12.4); Monocytes Absolute Auto 0.6 X10*3/uL (0.1-1.2); Monocytes Percent Auto 10.7 % (2-11); Neutrophils Absolute Auto 3.4 x10*3/uL (2.0-8.3); Neutrophils Percent Auto 60.1 % (45-73); Platelet Count 373 X10*3/uL (160-400); Red Blood Count 4.71 X10*6/uL (4.60-5.80); Red Cell Distribution Width 12.7 % (11.0-16.0); White Blood Count 5.6 X10*3/uL (4.8-10.8)
[2022-03-11 10:34] LABS: Estimated Average Glucose 120 mg/dL; Hemoglobin A1c % 5.8 %
[2022-03-11 10:57] LABS: Alanine Aminotransferase 29 U/L (0-40); Albumin Level 3.9 g/dL (3.5-5.0); Alkaline Phosphatase 76 U/L (39-117); Anion Gap 10 (12-20); Aspartate Amino Transferase 22 U/L (5-37); Bilirubin Total 0.7 mg/dL (0.0-1.0); Blood Urea Nitrogen 15 mg/dL (9-16); Calcium 9.5 mg/dL (8.4-10.2); Carbon Dioxide 27 mmol/L (22-29); Chloride 107 mmol/L (96-108); Cholesterol 100 mg/dL; Estimated Glomerular Filt Rate > 60; Glucose Random 110 mg/dL (60-115); HDL Cholesterol 29 mg/dL; LDL Cholesterol Calculated 58 mg/dl; Potassium 4.7 mmol/L (3.3-5.1); Sodium 139 mmol/L (135-145); Total Protein 6.7 g/dL (6.5-8.0); Triglycerides 69 mg/dL
[2022-03-11 11:15] LABS: Vitamin B12 797 pg/mL (200-900)
[2022-03-15 00:07] LABS: Parietal Cell Antibody <=20.0 Unit (<=20.0)
[2022-03-15 22:17] LABS: Intrinsic Factor Antibodies Negative (Negative)
== END 2022-03-11 09:06 | disposition home or self-care (01) ==
LOC: HO.LAB 09:05
PROVIDERS: PCP Internal Medicine; Visit Provider Internal Medicine
DX: R73.01 Impaired fasting glucose (principal); E78.00 Pure hypercholesterolemia, unspecified
CPT/HCPCS: 36415; 80053; 80061; 82607; 82746; 83036; 83516; 85025; 86340

== ENCOUNTER → 2022-04-21 09:48 | Outpatient (BNVA) | payer MEDICARE, SELFPAY | PROVIDERS: PCP Internal Medicine; Referring Provider Internal Medicine; Visit Provider Internal Medicine Cardiovascular Disease | DX: I35.0 Nonrheumatic aortic (valve) stenosis (principal); I77.810 Thoracic aortic ectasia; I10 Essential (primary) hypertension | CPT/HCPCS: 99212 ==

== ENCOUNTER → 2022-06-03 14:54 | Outpatient (BNVA) | payer MEDICARE, SELFPAY | PROVIDERS: PCP Internal Medicine; Visit Provider Urology | DX: R32 Unspecified urinary incontinence (principal); N32.0 Bladder-neck obstruction | CPT/HCPCS: 51798; 99212 ==

== ENCOUNTER 2022-09-30 09:23 | Outpatient (REF) | payer MEDICARE, SELFPAY ==
[2022-09-30 10:24] LABS: Appearance Urine Clear; Color Urine Yellow; Glucose Urine UA Negative (Negative); Leukocyte Esterase Urine Small (1+) (Negative); Nitrite Urine Negative (Negative); UMIC TRIGGER UA YES; Urine Blood Small (1+) (Negative); Urine Ketones Negative (Negative); Urine Protein Negative (Neg-Trace)
[2022-09-30 10:52] LABS: Bacteria Urine None Seen (None Seen); Hyaline Casts Urine 0-2 /LPF (0-2); Squamous Epithelial Cell Urine 0-2 /HPF (0-2); WBC Urine 0-5 /HPF (0-5)
[2022-09-30 13:48] LABS: Anion Gap 13 (12-20); Blood Urea Nitrogen 18 mg/dL (9-16); Calcium 8.7 mg/dL (8.4-10.2); Carbon Dioxide 25 mmol/L (22-29); Chloride 108 mmol/L (96-108); Estimated Glomerular Filt Rate > 60; Glucose Fasting 107 mg/dL (60-99); Potassium 4.5 mmol/L (3.3-5.1); Prostate Specific Antigen 0.61 ng/mL (<0.05-4.0); Sodium 141 mmol/L (135-145)
== END 2022-09-30 09:24 | disposition home or self-care (01) ==
LOC: HO.LAB 09:23
PROVIDERS: Nurse Practitioner Family; PCP Internal Medicine; Visit Provider Urology
DX: Z13.1 Encounter for screening for diabetes mellitus (principal); Z12.5 Encounter for screening for malignant neoplasm of prostate; R35.0 Frequency of micturition; N40.1 Benign prostatic hyperplasia with lower urinary tract symptoms
CPT/HCPCS: 36415; 80048; 81001; 84153; 87086

== ENCOUNTER 2022-10-27 08:39 | Outpatient (REF) | payer MEDICARE, SELFPAY ==
[2022-10-27 10:49] LABS: Estimated Average Glucose 123 mg/dL; Hemoglobin A1c % 5.9 %
== END 2022-10-27 08:40 | disposition home or self-care (01) ==
LOC: HO.LAB 08:39
PROVIDERS: PCP Internal Medicine; Referring Provider Internal Medicine; Visit Provider Nurse Practitioner Family
DX: I35.0 Nonrheumatic aortic (valve) stenosis (principal); I10 Essential (primary) hypertension; I48.91 Unspecified atrial fibrillation; I48.20 Chronic atrial fibrillation, unspecified; I44.7 Left bundle-branch block, unspecified; I77.810 Thoracic aortic ectasia; R73.01 Impaired fasting glucose; Z79.899 Other long term (current) drug therapy
CPT/HCPCS: 36415; 83036; 93005; 99212

== ENCOUNTER → 2022-12-04 08:44 | Outpatient (BNVA) | payer MEDICARE, SELFPAY | PROVIDERS: PCP Internal Medicine; Visit Provider Urology | DX: R33.9 Retention of urine, unspecified (principal); I10 Essential (primary) hypertension | CPT/HCPCS: 51798; 99212 ==

== ENCOUNTER → 2023-01-22 08:28 | Outpatient (BNVA) | payer MEDICARE, SELFPAY | PROVIDERS: PCP Internal Medicine; Visit Provider Urology | DX: N32.0 Bladder-neck obstruction (principal); R33.9 Retention of urine, unspecified | CPT/HCPCS: 52000; 99212 ==

== ENCOUNTER 2023-03-16 09:49 | Outpatient (REF) | payer MEDICARE, SELFPAY ==
[2023-03-16 10:02] LABS: MANUAL DIFF FLAG NO
[2023-03-16 11:21] LABS: Basophils Absolute Auto 0.1 X10*3/uL (0.0-0.2); Basophils Percent Auto 1.2 % (0-2); Eosinophils Absolute Auto 0.1 X10*3/uL (0.0-0.4); Eosinophils Percent Auto 2.1 % (0-4); Hemoglobin 15.4 g/dl (14.0-18.0); Imm Gran Abs Auto 0.02 X10*3/uL (0.00-0.03); Imm Gran Pct Auto 0.4 % (0.0-0.4); Lymphocytes Absolute Auto 1.6 X10*3/uL (1.2-4.9); Lymphocytes Percent Auto 27.1 % (20-40); Mean Corpuscular HGB Conc 32.8 g/dl (31.0-36.0); Mean Corpuscular Hemoglobin 32.4 pg (27.0-33.0); Mean Corpuscular Volume 98.7 fL (80.0-98.0); Monocytes Absolute Auto 0.7 X10*3/uL (0.1-1.2); Monocytes Percent Auto 12.6 % (2-11); Neutrophils Absolute Auto 3.2 x10*3/uL (2.0-8.3); Neutrophils Percent Auto 56.6 % (45-73); Platelet Count 282 X10*3/uL (160-400); Red Blood Count 4.76 X10*6/uL (4.60-5.80); Red Cell Distribution Width 13.4 % (11.0-16.0); White Blood Count 5.7 X10*3/uL (4.8-10.8)
[2023-03-16 11:43] LABS: Estimated Average Glucose 114 mg/dL; Hemoglobin A1c % 5.6 %
[2023-03-16 11:44] LABS: B Type Natriuretic Peptide 268 pg/mL (<100)
[2023-03-16 12:11] LABS: Alanine Aminotransferase 27 U/L (0-40); Albumin Level 4.2 g/dL (3.5-5.0); Alkaline Phosphatase 99 U/L (39-117); Anion Gap 14 (12-20); Aspartate Amino Transferase 21 U/L (5-37); Bilirubin Total 0.9 mg/dL (0.0-1.0); Blood Urea Nitrogen 16 mg/dL (9-16); Calcium 9.1 mg/dL (8.4-10.2); Carbon Dioxide 27 mmol/L (22-29); Chloride 108 mmol/L (96-108); Cholesterol 110 mg/dL; Estimated Glomerular Filt Rate > 60; Glucose Random 97 mg/dL (60-115); HDL Cholesterol 34 mg/dL; LDL Cholesterol Calculated 69 mg/dl; Potassium 4.8 mmol/L (3.3-5.1); Sodium 144 mmol/L (135-145); Total Protein 7.1 g/dL (6.5-8.0); Triglycerides 35 mg/dL
[2023-03-16 12:22] LABS: Folate 9.3 ng/mL (> or = 4.0); Free T4 (Free Thyroxine) 0.96 ng/dL (0.71-1.85); Thyroid Stimulating Hormone 3.68 uIU/mL (0.32-4.0); Vitamin B12 1021 pg/mL (200-900)
== END 2023-03-16 09:50 | disposition home or self-care (01) ==
LOC: HO.LAB 09:49
PROVIDERS: PCP Internal Medicine; Visit Provider Internal Medicine
DX: I10 Essential (primary) hypertension (principal); E78.00 Pure hypercholesterolemia, unspecified; R73.01 Impaired fasting glucose
CPT/HCPCS: 36415; 80053; 80061; 82607; 82746; 83036; 83880; 84439; 84443; 85025

== ENCOUNTER 2023-04-20 06:51 | Day surgery (SDC) | payer MEDICARE, SELFPAY ==
[2023-04-16 11:00] VITALS: BMI 35.1
--- NOTE | 2023-04-16 12:10 | HO.ANESPROP2 ---
Documented by User: Tricia Schafer NP 04/16/23 12:14 HPI - Anesthesia Eval Consult details Narrative: 72yo M for Laser Ablation Prostate w/Green Light Eliquis for afib Stable at PCP office eval 03/2023 Stable at Cardiology office eval 10/2022 [facility] Active Problems Active Problems: All Active Problems (Updated 03/24/23 @ 08:56 by Cathie Ruano MD) Screening for colon cancer (Acute) Chronic atrial fibrillation (Acute) Peripheral vascular disease (Acute) Vitamin B 12 deficiency (Acute) Spinal stenosis, lumbar region with neurogenic claudication (Acute) Internal derangement of left knee (Acute) Lumbar radiculopathy (Acute) Adult general medical exam (Acute) Urinary retention (Acute) Bladder outlet obstruction (Acute) Mild aortic stenosis (Acute) Impaired fasting blood sugar (Acute) Obesity (BMI 30-39.9) (Acute) Ascending aorta dilation (Acute) Benign prostatic hyperplasia (Acute) Benign essential hypertension (Acute) Past Medical History Medical History (Updated 03/24/23 @ 08:56 by Cathie Ruano MD) Ascending aorta dilation Benign essential hypertension Benign prostatic hyperplasia Cataract Claudication of left lower extremity LBBB (left bundle branch block) Left hamstring muscle strain Obesity (BMI 30-39.9) PAF (paroxysmal atrial fibrillation) Screening for colon cancer Screening for diabetes mellitus Screening for prostate cancer Spinal stenosis, lumbar region with neurogenic claudication Vitamin D deficiency Weak urinary stream Family History Family History Father Colon cancer Mother No problems noted. Maternal Grandfather Throat cancer Surgical History Surgical History Deficient knowledge of scrotal surgery H/O meniscectomy of right knee History of arthroscopy of left knee History of cataract surgery History of colonoscopy History of inguinal hernia repair History of surgery Social History Social History Housing: House Are you a primary residential caregiver to a significant other at home: No Do you presently have visiting nurse or other home services: No Alcohol intake: current Alcohol intake frequency: holidays/special occasions only Patient Tobacco Use Status: Former Tobacco user Quit Date: e-Cigarette/Vaping Use: Never Used Second Hand Smoke Exposure: No Use of substances other than those prescribed or required for medical reasons: No Have you been hit, kicked, punched, or otherwise hurt by someone within the past year? 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 Cognitive needs: No Hearing needs: No Vision needs: Yes Meds Allergies Allergy/AdvReac Type Severity Reaction Status Date / Time lisinopril AdvReac Intermediate cough Verified 03/24/23 08:47 Exam Exam Date and Time: April 16, 2023 1210 Height,Weight and Vital Signs: Height 5 ft 11 in Weight 114.305 kg Pertinent Lab Results Pertinent Lab Results: Laboratory Tests 03/16/23 03/16/23 10:01 10:01 WBC 5.7 Hgb 15.4 Hct 47.0 Plt Count 282 Sodium 144 Potassium 4.8 Chloride 108 Carbon Dioxide 27 BUN 16 Creatinine 0.84 Narrative Narrative: EKG 10/2022 Atrial fibrillation 54 beats per minute, aberrantly contracted complexes, nonspecific ST-T changes, QTC 403 milliseconds. ECHO 2020 Conclusions: - The left ventricular systolic function is normal.? The ? calculated ejection fraction is 57% by biplane method. ? - There is mild to moderate aortic valve stenosis. ? - There is mild mitral valve regurgitation.? - Mild pulmonary hypertension is present.? - There is mild dilatation of the ascending aorta measuring 4.00 cm.? Assessment and Plan Assessment Anesthesia Assessment: Chart Reviewed Documented by User: Gunner Ledesma MD 04/20/23 08:54 PMFSH Past Medical History Medical History (Updated 03/24/23 @ 08:56 by Cathie Ruano MD) Ascending aorta dilation Benign essential hypertension Benign prostatic hyperplasia Cataract Claudication of left lower extremity LBBB (left bundle branch block) Left hamstring muscle strain Obesity (BMI 30-39.9) PAF (paroxysmal atrial fibrillation) Screening for colon cancer Screening for diabetes mellitus Screening for prostate cancer Spinal stenosis, lumbar region with neurogenic claudication Vitamin D deficiency Weak urinary stream Family History Family History Father Colon cancer Mother No problems noted. Maternal Grandfather Throat cancer Family history of problems with anesthesia: No Surgical History Surgical History Deficient knowledge of scrotal surgery H/O meniscectomy of right knee History of arthroscopy of left knee History of cataract surgery History of colonoscopy History of inguinal hernia repair History of surgery History of Problems with Anesthesia: No Social History Social History Housing: House Are you a primary residential caregiver to a significant other at home: No Do you presently have visiting nurse or other home services: No Alcohol intake: current Alcohol intake frequency: holidays/special occasions only Patient Tobacco Use Status: Former Tobacco user Quit Date: e-Cigarette/Vaping Use: Never Used Second Hand Smoke Exposure: No Use of substances other than those prescribed or required for medical reasons: No Have you been hit, kicked, punched, or otherwise hurt by someone within the past year? 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 See above. Lungs: ok Assessment and Plan Assessment Anesthesia Assessment: Anesthesia Plan Discussed Final Anesthetic Review Family History of Problems with Anesthesia: No History of Problems with Anesthesia: No NPO: Yes ASA Class: III Final Preanesthetic Review: No Changes in Pt Med Stat, Meds/Allgs Chart Reviewed, Consent Obtained/Reviewed and Anes Risks/Benef Reviewed Patient Risk: Intermediate Procedure Risk: Low Anesthetic Plan Anesthetic Plan: GA and Agree w/ Assess. and Plan Disposition: Standard PACU
[2023-04-16 13:55] VITALS: BMI 34.2
[2023-04-20] VITALS (8 sets, daily range): BP systolic 105–152; BP diastolic 55–78; PULSE 50–56; RESP 16–18; TEMP 36.2–36.6; O2SAT 93–96
--- NOTE | 2023-04-20 08:22 | MHC.SHP ---
Pre-Procedural Eval Section A Date of Service: 04/20/23 The patient is an INPATIENT: No Changes since office visit: No Cold of Flu in the past 2 weeks, No New Medical Problems, No Changes in Medication and No Patient answered all questions The History & Physical has been completed within 30 days and I have reviewed it.: No Section B Chief Complaint: Benign prostatic hyperplasia without lower urinary Details of Present Illness: Large left lateral lobe plan GreenLight laser prostatectomy Relevant Social History: None Present Medications: see Short Stay Collaborative assessment Medical History: No relevant PMH History of Previous Operations: No relevant previous surgery Allergies: Allergies Allergy/AdvReac Type Severity Reaction Status Date / Time lisinopril AdvReac Intermediate cough Verified 03/24/23 08:47 Review of Systems Sugical H&P ROS: Negative: Constitution, Cardiovascular, Respiratory, Neurological, Psychiatric, Hem-Onc, Allergic/Immunologic, Gastrointestinal, Genitourinary, Musculoskeletal, Integumentary, Endocrine and Eyes/Ears/Nose/Throat Exam Surgical H&P Exam: Normal: HEENT, Normal: Heart, Normal: Lungs, Normal: Extremities, Normal: Abdomen, Normal: Skin and Normal: Neurological Plan Diagnosis/Plan: Unchanged ( prior retention, GreenLight laser prostatectomy) I have reviewed the history and physical and performed a pertinent physical examination on my patient. No changes have occurred unless specified. Time Spent With Patient Time: Total time managing care of this patient today ____ minutes.
--- NOTE | 2023-04-20 10:25 | W.PM.OPN ---
Operative Note Operative Note Date of Service: 04/20/23 Narrative: PreOperative Diagnosis: Bladder outlet obstruction Post Operative Diagnosis: Bladder outlet obstruction Procedure: GreenLight Laser Enucleation of the prostate Surgeon: Dr Willi Bryant Anesthesia: General Indications for procedure: enalrgred lateral lobes and prior retention History of bladder outlet obstruction. Treated with alpha-alexis and other medications. Still with symptoms. On cystoscopy in office has trilobar prostate . Recommendation for prostate procedure with laser enucleation of prostate. Risks and benefits have been discussed. Focus was placed on development of retrograde ejaculation which is a normal part of this procedure. Procedure: After informed consent was verified the patient was brought to the operating room and placed in a supine position. Anesthesia was administered per protocol. Patient was placed in modified dorsal lithotomy position and prepped and draped in a sterile fashion. Safety pause time-out was confirmed. Antibiotics have been given. A Twenty-four Vincentian laser cystoscope was inserted per urethra. No abnormalities were found of the anterior and bulbar urethra. The bladder was examined and both ureteric orifices were seen in their normal positions away from the area of interest. Using a GreenLight laser with settings of 80 w incisions were made at the 5 and 7 o'clock position. The incisions were taken down from the bladder neck down to the level of the veru. These were gradually deepened in order to define the lateral aspects of the median lobe area. Once clearly defined they will also extended in the lateral directions in order to create a deep groove. The median lobe was then ablated and enucleated tissue released into the bladder with the laser power increased to 120 W. Once the median lobe area had been cleared attention was directed to the lateral lobes. Starting with the patient's left lateral lobe. First the 05:00 o'clock groove was further developed. This was moved in the lateral direction to undermine the tissue on the lateral side running from the bladder neck to the prostate apex. Focus was then placed on the laser at the 1 o'clock position to developing a secondary groove down to the level of bladder fibers. The creation of a second deep groove defined a segment of intervening tissue similar to a slice of orange. At the apex of the prostate the 2 grooves were linked the us releasing the intervening tissue. This tissue was then removed with a combination of enucleation and ablation working from the apex toward the bladder neck. A similar procedure was repeated on the patient's right-hand side. The only differences being the position of the lateral groove at he 7 'oclock positioin and the secondary groove at the 11 o'clock position, Otherwise the procedure was developed in a mirror fashion. After the majority of tissue had been debulked remnant tissue was ablated with the side fire laser and the curve of the prostate followed up each side wall clearly defining the anterior remnant strip that remained between the 11 and 1 o'clock positions. When this was had been completed debris and pieces of prostate were removed from the bladder with irrigation. Both ureteric orifices were reviewed again in shown to be patent in away from any areas of energy damage. The apical area was reviewed in any stray ooze was controlled. A 22 Vincentian 30 cc balloon Fagan catheter was placed over a stylet into the bladder. Clear efflux was obtained upopn irrigation with a Yobani piston syringe. 30 cc was placed in the balloon and gentle traction was placed. A snap was used to hold tension on the catheter to control bleeding during patient moved and transported. A drainage bag was placed. Once transportation is complete to the PACU the snap will be removed. The patient tolerated the procedure well, he was extubated in the operating and transferred in a stable condition to the recovery area. Total Power 227 kW Lasing time 37:48 Pathology: Prostate tissue Drains: Fagan catheter
== END 2023-04-20 11:30 | disposition home or self-care (01) ==
PROVIDERS: PCP Internal Medicine; Visit Provider Urology
PROC: (CPT 52648; principal; 2023-04-20 09:10)
DX: N40.0 Benign prostatic hyperplasia without lower urinary tract symptoms (principal); N32.0 Bladder-neck obstruction; R33.9 Retention of urine, unspecified; Z88.8 Allergy status to other drugs, medicaments and biological substances; I10 Essential (primary) hypertension; R73.01 Impaired fasting glucose; I44.7 Left bundle-branch block, unspecified; I48.0 Paroxysmal atrial fibrillation; E55.9 Vitamin D deficiency, unspecified; Z79.01 Long term (current) use of anticoagulants; Z87.891 Personal history of nicotine dependence
CPT/HCPCS: 52649; 88305; J1956; J3010

== ENCOUNTER → 2023-04-20 06:51 | Outpatient (BNV) | payer MEDICARE, SELFPAY | PROVIDERS: PCP Internal Medicine; Visit Provider Urology | DX: N32.0 Bladder-neck obstruction (principal) | CPT/HCPCS: 52649 ==

== ENCOUNTER 2023-04-23 09:14 | Outpatient (AMB) | payer MEDICARE, SELFPAY ==
--- NOTE | 2023-04-23 09:33 | AM.OFFVISNUR ---
Intake Intake Visit Reasons: Voiding trial (greenlight) Allergies lisinopril Adverse Reaction (Intermediate, Verified 03/24/23 08:47) cough Office Procedures Bladder/Catheter Procedure Details: 120 mls sterile water instilled into bladder, 22 fr cath with 30 ml balloon removed, pt tolerated removal well. able to urinate into urinal 140 mls red tinged urine. bladder scanned for 0 mls. advised increased fluids today, call office by 2 pm if unable to or having difficulty voiding, pt agreeable. [address] Hdz [id number] of Bladder Procedure code (CPT) selection complete Post Void Residual Post Residual Void Post Void Residual (PVR): 0 79124-Ikhs Void Residual by ultrasound Coding Diagnoses CPT Codes Bladder/Catheter Procedure - CPT: 95640-Ihlotnizsm of Bladder ([id number]) Post Residual Void - PVR CPT Code: 47166-Lnfn Void Residual by ultrasound ([id number]) Assessment & Plan Assessment & Plan Orders: Orders AMB Bladder/Catheter Procedure Today N32.0 - Bladder-neck obstruction, N40.0 - Benign prostatic hyperplasia without lower urinary tract symptoms AMB Post Void Residual by ultrasound Today N40.0 - Benign prostatic hyperplasia without lower urinary tract symptoms, R33.9 - Retention of urine, unspecified
== END 2023-04-23 10:02 | disposition home or self-care (01) ==
PROVIDERS: Visit Provider Urology
DX: N32.0 Bladder-neck obstruction (principal)
CPT/HCPCS: 51700

== ENCOUNTER → 2023-04-23 09:14 | Outpatient (BNVA) | payer MEDICARE, SELFPAY | PROVIDERS: Visit Provider Urology | DX: N40.1 Benign prostatic hyperplasia with lower urinary tract symptoms (principal); N13.8 Other obstructive and reflux uropathy; R33.8 Other retention of urine | CPT/HCPCS: 51700; 51798 ==

== ENCOUNTER 2023-06-01 06:17 | Day surgery (SDC) | payer MEDICARE, SELFPAY ==
--- NOTE | 2023-05-28 11:45 | HO.ANESPROP2 ---
Documented by User: Tricia Schafer NP 05/28/23 11:47 HPI - Anesthesia Eval Consult details Narrative: 72yo M for Colonoscopy s/p laser prostate 04/2023 with GA-LMA 4 Eliquis for afib Stable at PCP office eval 03/2023 Stable at Cardiology office eval 10/2022 [facility] Active Problems Active Problems: All Active Problems (Updated 04/21/23 @ 12:03 by Cathie Ruano MD) Screening for colon cancer (Acute) Chronic atrial fibrillation (Acute) Peripheral vascular disease (Acute) Vitamin B 12 deficiency (Acute) Spinal stenosis, lumbar region with neurogenic claudication (Acute) Internal derangement of left knee (Acute) Lumbar radiculopathy (Acute) Adult general medical exam (Acute) Urinary retention (Acute) Bladder outlet obstruction (Acute) Mild aortic stenosis (Acute) Impaired fasting blood sugar (Acute) Obesity (BMI 30-39.9) (Acute) Ascending aorta dilation (Acute) Benign prostatic hyperplasia (Acute) Benign essential hypertension (Acute) Past Medical History Medical History Ascending aorta dilation Benign essential hypertension Benign prostatic hyperplasia Cataract Claudication of left lower extremity LBBB (left bundle branch block) Left hamstring muscle strain Obesity (BMI 30-39.9) PAF (paroxysmal atrial fibrillation) Screening for colon cancer Screening for diabetes mellitus Screening for prostate cancer Spinal stenosis, lumbar region with neurogenic claudication Vitamin D deficiency Weak urinary stream Family History Family History Father Colon cancer Mother No problems noted. Maternal Grandfather Throat cancer Family history of problems with anesthesia: No Surgical History Surgical History Deficient knowledge of scrotal surgery H/O meniscectomy of right knee History of arthroscopy of left knee History of cataract surgery History of colonoscopy History of inguinal hernia repair History of prostate surgery History of surgery History of Problems with Anesthesia: No Social History Social History Housing: House Are you a primary acute care surgeon to a significant other at home: No Do you presently have visiting nurse or other home services: No Alcohol intake: current Alcohol intake frequency: holidays/special occasions only Patient Tobacco Use Status: Former Tobacco user Quit Date: 45 yrs ago e-Cigarette/Vaping Use: Never Used Second Hand Smoke Exposure: No Use of substances other than those prescribed or required for medical reasons: No Are you DNR?: No Advance Directives: No Advance Directives Information Provided: Yes Current occupational status: employed 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 ECHO 2020 Conclusions: - The left ventricular systolic function is normal.? The ? calculated ejection fraction is 57% by biplane method. ? - There is mild to moderate aortic valve stenosis. ? - There is mild mitral valve regurgitation.? - Mild pulmonary hypertension is present.? - There is mild dilatation of the ascending aorta measuring 4.00 cm.? Assessment and Plan Assessment Anesthesia Assessment: Chart Reviewed Final Anesthetic Review Family History of Problems with Anesthesia: No History of Problems with Anesthesia: No Documented by User: Fernanda Georges MD 06/01/23 07:28 [facility] Past Medical History Medical History Ascending aorta dilation Benign essential hypertension Benign prostatic hyperplasia Cataract Claudication of left lower extremity LBBB (left bundle branch block) Left hamstring muscle strain Obesity (BMI 30-39.9) PAF (paroxysmal atrial fibrillation) Screening for colon cancer Screening for diabetes mellitus Screening for prostate cancer Spinal stenosis, lumbar region with neurogenic claudication Vitamin D deficiency Weak urinary stream Family History Family History Father Colon cancer Mother No problems noted. Maternal Grandfather Throat cancer Surgical History Surgical History Deficient knowledge of scrotal surgery H/O meniscectomy of right knee History of arthroscopy of left knee History of cataract surgery History of colonoscopy History of inguinal hernia repair History of prostate surgery History of surgery Social History Social History Housing: House Are you a primary acute care surgeon to a significant other at home: No Do you presently have visiting nurse or other home services: No Alcohol intake: current Alcohol intake frequency: holidays/special occasions only Patient Tobacco Use Status: Former Tobacco user Quit Date: 45 yrs ago e-Cigarette/Vaping Use: Never Used Second Hand Smoke Exposure: No Use of substances other than those prescribed or required for medical reasons: No Are you DNR?: No Advance Directives: No Advance Directives Information Provided: Yes Current occupational status: employed 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 Cognitive needs: No Hearing needs: No Vision needs: Yes Meds Allergies Allergy/AdvReac Type Severity Reaction Status Date / Time lisinopril AdvReac Intermediate cough Verified 06/01/23 06:59 Exam Airway Mallampati Class: II (edentulous) TM Dist: >3cm Neck ROM: Full Denture: Upper and Lower Loose/Missing/Broken Teeth: Yes, Upper and Lower Heart: RRR Lungs: CTA Assessment and Plan Assessment Anesthesia Assessment: Anesthesia Plan Discussed Final Anesthetic Review NPO: Yes ASA Class: III Final Preanesthetic Review: Meds/Allgs Chart Reviewed, Consent Obtained/Reviewed and Anes Risks/Benef Reviewed Patient Risk: Intermediate Procedure Risk: Low Anesthetic Plan Anesthetic Plan: MAC: Disposition: Standard PACU
[2023-06-01 07:10] VITALS: BMI 33.2
[2023-06-01 07:26] VITALS: BP 138/80; PULSE 57; RESP 16; TEMP 36.4; O2SAT 98
[2023-06-01] MEDS: Lactated Ringers 1,000 ML 100 ML IVCONT (07:29)
[2023-06-01 08:27] VITALS: BP 100/62; PULSE 52; RESP 16; TEMP 36.6; O2SAT 95
--- NOTE | 2023-06-01 08:29 | PM.OP ---
Brief Operative Note Date of Service: 06/01/23 Pre-op diagnosis: Screening Post-op diagnosis: other (Polyp) Procedure: Coonoscopy to the cecum and TI with bx/removal of polyp Surgeon: Puneet Huffman Anesthesia: MAC Was an [employer] used for this Procedure?: No Estimated blood loss (mL): 2.0 Pathology: other (A. Polyp at 60cm) Condition: stable Disposition: PACU
[2023-06-01 08:42] VITALS: BP 102/71; PULSE 59; RESP 16; O2SAT 97
--- NOTE | 2023-06-01 08:48 | OP_ITS ---
DATE OF SERVICE: 06/01/2023 SURGEON: Puneet Huffman MD INDICATIONS: The patient presents for evaluation of personal history of tubular adenoma of the colon, family history colon cancer, and colorectal cancer screening. Full consent obtained from him for this, including risks of bleeding and perforation. PREOPERATIVE DIAGNOSIS: POSTOPERATIVE DIAGNOSIS: PROCEDURE PERFORMED: Colonoscopy to the cecum and terminal ileum with biopsy and removal of polyp. ESTIMATED BLOOD LOSS: COMPLICATIONS: ANESTHESIA: Monitored anesthesia care. ASSISTANTS: SPECIMENS: PREOPERATIVE DIAGNOSES: Colorectal cancer screening. Personal history of tubular adenoma of the colon, and family history of colon cancer. POSTOPERATIVE DIAGNOSES: Colorectal cancer screening, Personal history of tubular adenoma of the colon, and family history of colon cancer. Small colon polyp, diverticulosis and internal hemorrhoids. DESCRIPTION OF PROCEDURE: The patient was placed in the left lateral decubitus position. The digital rectal exam revealed no abnormalities. The Olympus video pediatric colonoscope was entered into the rectum and advanced easily to the cecum. Once in the cecum, I did identify normal-appearing cecal pouch with appendiceal orifice and a normal-appearing ileocecal valve. The terminal ileum was cannulated and appeared normal. The scope was withdrawn back in the colon. The entire cecum and ileocecal valve appeared normal. The scope was slowly withdrawn assessing all mucosal surfaces carefully. Preparation was excellent. At 60 cm was a flat approximately 3 mm polyp, which was biopsied and removed completely with cold biopsy forceps. I did not visualize any other polyps, colitis, nor angiodysplasia. There was a mild amount of sigmoid diverticulosis. In the rectum, the scope was retroflexed, visualizing internal hemorrhoids, but no other pathology. The rectal mucosa appeared normal. The scope was straightened and withdrawn from the patient. He tolerated the procedure well and was returned to the recovery area in stable condition. IMPRESSION: 1. Small colon polyp. 2. Diverticulosis. 3. Internal hemorrhoids. PLAN: The results of the biopsy will be checked. I would recommend a repeat colonoscopy in 5 years for further surveillance. He was advised to resume his Eliquis tomorrow. MD KIERAN Nuñez/AKASH / [id number] MTDAndi
[2023-06-01 08:57] VITALS: BP 134/80; PULSE 56; RESP 18; TEMP 36.2; O2SAT 97
== END 2023-06-01 09:14 | disposition home or self-care (01) ==
PROVIDERS: PCP Internal Medicine; Visit Provider Internal Medicine
PROC: 0DJD8ZZ Inspection of Lower Intestinal Tract, Via Natural or Artificial Opening Endoscopic (ICD-10-PCS; CPT 45378; principal; 2023-06-01 07:30)
DX: Z12.11 Encounter for screening for malignant neoplasm of colon (principal); Z86.010 Personal history of colon polyps; Z80.0 Family history of malignant neoplasm of digestive organs; D12.4 Benign neoplasm of descending colon; K57.30 Diverticulosis of large intestine without perforation or abscess without bleeding; K64.8 Other hemorrhoids; I10 Essential (primary) hypertension; I44.7 Left bundle-branch block, unspecified; I48.91 Unspecified atrial fibrillation; Z79.01 Long term (current) use of anticoagulants; Z79.899 Other long term (current) drug therapy; Z87.891 Personal history of nicotine dependence
CPT/HCPCS: 45380; 88305

== ENCOUNTER 2023-06-02 09:57 | Outpatient (AMB) | payer MEDICARE, SELFPAY ==
--- NOTE | 2023-06-02 10:25 | MHC.OFFVIS ---
Intake Intake Visit Reasons: 6w/greenlight post op Intake Note: Patient is present for Follow Up Post Op Greenlight Urology Med: Terazosin Antibiotic Allergy: None Blood Thinner: Apixaban Pharmacy: [facility] PVR:0 Allergies lisinopril Adverse Reaction (Intermediate, Verified 06/02/23 10:30) cough HPI HPI Comments History of Present Illness Details Tenzin is a pleasant male. He is seen for the following urologic condition - urinary retention - bladder outlet obstruction GreenLight completed 6 weeks ago Improved stream Urgency and frequency during day is reducing Discussed nocturia which is last symptoms to resolve Six month follow-up PSA Urinary retention May 2021 seen in emergency room with 600 cc residual - passed voiding trial Current therapy for BPH terazosin 5mg and finasteride Cystoscopy - 06/01 enlarged median lobe PSA 06/01 2.1, 08/02 0.6 GreenLight laser - 05/03 [facility] Medical History Ascending aorta dilation Benign essential hypertension Benign prostatic hyperplasia Cataract Claudication of left lower extremity LBBB (left bundle branch block) Left hamstring muscle strain Obesity (BMI 30-39.9) PAF (paroxysmal atrial fibrillation) Screening for colon cancer Screening for diabetes mellitus Screening for prostate cancer Spinal stenosis, lumbar region with neurogenic claudication Vitamin D deficiency Weak urinary stream Surgical History Deficient knowledge of scrotal surgery H/O meniscectomy of right knee History of arthroscopy of left knee History of cataract surgery History of colonoscopy History of inguinal hernia repair History of prostate surgery History of surgery Family History Father Colon cancer Mother No problems noted. 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 Cognitive needs: No Hearing needs: No Vision needs: Yes Review of Systems Const Denies chills and Denies fever(s) Card Reports no additional complaints and Denies syncope Resp Denies cough GI Denies abdominal pain and Denies heartburn Reports as per HPI and Denies change in libido Neuro Denies syncope Psych Denies change in libido Endo Denies change in libido Physical Exam Const General: cooperative, healthy appearing, comfortable and no acute distress Orientation/consciousness: patient oriented x3 HEENT Face and sinus: Yes normal facial exam Mouth: moist mucous membranes Neck Neck: Yes normal visual inspection, Yes full ROM and Yes trachea midline Chest Chest palpation & inspection: normal inspection of the chest Resp Effort & Inspection: normal respiratory effort, able to speak in complete sentences and no respiratory distress GI Inspection: Yes normal to inspection Back/Spine/Pelvis Cervical Spine: normal cervical lordosis Thoracic/Lumbar Spine: thoracic and lumbar spine normal to inspection Skin General skin exam: no rashes or lesions noted Neuro General: patient oriented x3, gait normal, tone normal and moves all extremities Extrem General: Yes normal to inspection and Yes capillary refill normal Office Procedures Post Void Residual Post Residual Void Post Void Residual (PVR): 0 94160-Uyty Void Residual by ultrasound Results AMB Urinalysis, Automated UA Leukoctes 125 Reyes/uL Last Edit by JULIOCESAR Zendejas on 06/02/23 10:44 UA Nitrite Negative Last Edit by Mimi Yancey [facility] on 06/02/23 10:44 UA Urobilinogen 0.2 mg/dL Last Edit by Mimi Yancey [facility] on 06/02/23 10:44 UA Protein 100 mg/dL Last Edit by Mimi Yancey [facility] on 06/02/23 10:44 UA pH 5.5 Last Edit by Mimi Yancey [facility] on 06/02/23 10:44 UA Blood 200 Vance/uL Last Edit by JULIOCESAR Zendejas on 06/02/23 10:44 UA Specific [place] 1.030 Last Edit by Mimi Yancey [facility] on 06/02/23 10:44 UA Ketone Negative Last Edit by JULIOCESAR Zendejas on 06/02/23 10:44 UA Bilirubin 0 mg/dL Last Edit by JULIOCESAR Zendejas on 06/02/23 10:44 UA Glucose 0 mg/dL Last Edit by JULIOCESAR Zendejas on 06/02/23 10:44 Results Reviewed Results Reviewed: Laboratory Last Values Urine pH (Auto) 5.5 06/02/23 10:30 Specific [place] (Auto) 1.030 06/02/23 10:30 Urine Protein (Auto) 100 mg/dL 06/02/23 10:30 Glucose (UA)(Auto) 0 mg/dL 06/02/23 10:30 Urine Ketones (Auto) Negative 06/02/23 10:30 Urine Blood (Auto) 200 Vance/uL 06/02/23 10:30 Urine Nitrite (Auto) Negative 06/02/23 10:30 Urine Bilirubin (Auto) 0 mg/dL 06/02/23 10:30 Urine Urobilinogen (Auto) 0.2 mg/dL 06/02/23 10:30 Leukocyte Esterase (Auto) 125 Reyes/uL 06/02/23 10:30 Assessment & Plan Assessment & Plan (1) Benign prostatic hyperplasia: Comment: Trans urethral resection April [address]23 Dr. Bryant Code(s): N40.0 - Benign prostatic hyperplasia without lower urinary tract symptoms Qualifiers: Lower urinary tract symptom presence: symptoms present Lower urinary tract symptom detail: urinary frequency Qualified Code(s): N40.1 - Benign prostatic hyperplasia with lower urinary tract symptoms; R35.0 - Frequency of micturition (2) Urinary retention with incomplete bladder emptying: Code(s): R33.9 - Retention of urine, unspecified Plan 6 month follow-up PSA Orders: Orders AMB Urinalysis Automated Today Z13.9 - Encounter for screening, unspecified AMB Post Void Residual by ultrasound Today R33.9 - Retention of urine, unspecified Patient Instructions: Imaging studies, laboratory and physical exam results were discussed and reviewed in detail. No major barriers to patient understanding were identified. An opportunity to ask questions regarding the treatment plan was provided. All questions were answered. The patient expressed understanding and agreement with the above treatment plan. The patient is aware they should contact our office by phone for worsening of their current condition or the appearance of new urologic symptoms. Compliance is encouraged with any medications and followup testing that is ordered. It is a privilege to participate in the urologic care of your patient. If you have any questions or concerns regarding treatment for the above conditions, or other urologic issues, please do not hesitate to contact me. The office telephone contact is [phone]. This note is constructed using voice recognition software. While every effort has been made to ensure accuracy broke worker errors may have been included. Yours sincerely, Dr Willi Bryant MD, [facility] - Urology Providers of Expert, Compassionate Care for the Genitourinary System Coding Level of Care Code Est Pt Level 3 (28838) Diagnoses Benign prostatic hyperplasia N40.1; R35.0 Lower urinary tract symptom presence: symptoms present Lower urinary tract symptom detail: urinary frequency Urinary retention with incomplete bladder emptying R33.9 CPT Codes Post Residual Void - PVR CPT Code: 50437-Gyjg Void Residual by ultrasound ([id number])
== END 2023-06-02 10:40 | disposition home or self-care (01) ==
PROVIDERS: PCP Internal Medicine; Visit Provider Urology
DX: N40.1 Benign prostatic hyperplasia with lower urinary tract symptoms (principal); R35.0 Frequency of micturition; R33.9 Retention of urine, unspecified; Z13.9 Encounter for screening, unspecified
CPT/HCPCS: 99213

== ENCOUNTER → 2023-06-02 09:57 | Outpatient (BNVA) | payer MEDICARE, SELFPAY | PROVIDERS: PCP Internal Medicine; Visit Provider Urology | DX: N40.1 Benign prostatic hyperplasia with lower urinary tract symptoms (principal); R33.8 Other retention of urine; R35.0 Frequency of micturition | CPT/HCPCS: 51798; 81003; 99212 ==

== ENCOUNTER → 2023-06-22 07:49 | Outpatient (REF) | payer MEDICARE, SELFPAY ==
--- NOTE | 2023-06-22 07:51 | CA_ITS ---
Transthoracic Echocardiogram Patient (Last, First, Middle): Tenzin Armando, Gender: Male Date of : 1950 Age: 72 Procedure Date: 06/22/2023 Procedure Type: Transthoracic Echocardiogram Location: OP Height: 180.34 cm Weight: 104.33 kg BSA: 2.24 m2 Heart Rate: bpm BP: 134 / 80 mmHg Ball Ender: Referring MD: Berny Kwon MD Cartridge Belt Puncher: Berny Kwon MD Symptoms: I77.810 - Thoracic aortic ectasia Study Quality: Fair ECG Rhythm: Atrial Fibrillation Conclusions: - Normal left ventricular size and systolic function. There is mildly increased left ventricular wall thickness. The visually estimated ejection fraction is between 55-60%. - Mildly increased right ventricular cavity size. There is mildly decreased right ventricular systolic function. - The left atrium is severely dilated. - There is mild aortic valve stenosis. - There is mild aortic valve regurgitation. - Mildly elevated right atrial pressure. Mild pulmonary hypertension is present. Findings Left Ventricle Normal left ventricular size and systolic function. There is mildly increased left ventricular wall thickness. The visually estimated ejection fraction is between 55-60%. There is no evidence of regional wall motion abnormalities. There is paradoxical septal motion consistent with a left bundle branch block. Diastolic function is indeterminate on the basis of available data. Right Ventricle Mildly increased right ventricular cavity size. There is mildly decreased right ventricular systolic function. Atria The left atrium is severely dilated. Aortic Valve There is a normal trileaflet aortic valve. There is mild calcification of the aortic valve. There is mild thickening of the aortic valve. There is mild aortic valve stenosis. The peak aortic velocity is 2.68 m/s. The aortic valve area is 2.23 cm2. There is mild aortic valve regurgitation. Mitral Valve The mitral valve appears normal. There is trace mitral valve regurgitation. There is no mitral valve stenosis. Pulmonic Valve There is no pulmonic valve regurgitation. Tricuspid Valve Normal tricuspid valve structure and function. There is mild tricuspid valve regurgitation. The right ventricular systolic pressure is 45 mmHg. Mildly elevated right atrial pressure. Mild pulmonary hypertension is present. Great Vessels There is mild dilatation of the ascending aorta measuring 4.10 cm. Venous The inferior vena cava is mildly dilated and collapses less than 50% with inspiration. Pericardium/Pleural There is no evidence of pericardial effusion. Prior Study Comparison Changes noted compared to prior study dated: 07/15/2021. Mildly decreased RV systolic function. Measurements 2D Linear Measurements IVSd: 1.24 0.6-0.9/0.6-1.0 cm LVIDd: 5.29 3.9-5.3/4.2-5.9 cm LVIDd Index: 2.36 2.4-3.2/2.2-3.1 cm/m2 LVIDs: 3.22 2.0-3.6 cm LVPWd: 1.27 0.7-1.1 cm Ao Root: 3.30 2.1-3.5 cm LA Diam: 5.70 2.7-3.8/3.0-4.0 cm LAIDs Index: 2.54 1.5-2.3 cm/m2 LV Mass: 339.58 67-162/88-224 g LV Mass Index: 151.60 43-95/49-115 g/m2 LVOT Diam: 2.40 3.0+(-)1.3 cm 2D Systolic Function EF 4C: 67.70 >55% EF 2C: 51.80 >55% EF BiP: 59.00 >55% Mitral Valve MV Pk E: 1.12 MV PK A: 0.40 MV Decel Time: 133.00 E/A: 2.80 E'Lateral: 12.10 E'Medial: 6.20 E/E' Med: 18.10 E/E' Lat: 9.30 PHT: 39.00 MVA PHT: 5.64 Decel Kerr: 8.41 Aortic Valve AoV Pk Herbert: 2.68 AoV Mn Herbert: 1.86 AoV VTI: 0.69 AoV Pk Grad: 29.00 Aov Mn Grad: 16.00 SHANDRA Cont.VTI: 2.23 AI Pk Herbert: 4.84 AI Kerr: 2.16 LVOT LVOT Pk Herbert: 1.29 LVOT Mn Herbert: 0.86 LVOT VTI: 0.34 LVOT Pk Grad: 7.00 LVOT Mn Grad: 4.00 LVOT Diam: 2.40 LVOT Area: 4.52 Diastolic Function MV Pk E: 1.12 MV Pk A: 0.40 E/A: 2.80 E'Medial: 6.20 E/E' Med: 18.10 E' Laterial: 12.10 E/E' Lat: 9.30 Right Ventricle TAPSE (mm): 24.00 TVS' Herbert: 9.00 Tricuspid Valve TR Pk Herbert: 3.05 TR Pk Grad: 37.00 RA Press: 8.00 RVSP: 45.00 Great Vessels Aorta Ao Root-2D: 3.30 2.0-3.7 cm Ao Asc: 4.10 2.1-3.4 cm Pulmonary Valve PV Pk Herbert: 1.17 Peak PV Grad: 5.00 Updated in Other Vendor System with Status of Final Berny Kwon MD electronically signed on 06/22/2023 7:15:21 PM with status of Final
== END ==
LOC: HO.CARD 07:49
PROVIDERS: PCP Internal Medicine; Visit Provider Internal Medicine Cardiovascular Disease
DX: I77.810 Thoracic aortic ectasia (principal)
CPT/HCPCS: 93306

== ENCOUNTER → 2023-06-22 07:51 | Outpatient (BNV) | payer MEDICARE, SELFPAY | PROVIDERS: PCP Internal Medicine; Visit Provider Internal Medicine Cardiovascular Disease | DX: I35.2 Nonrheumatic aortic (valve) stenosis with insufficiency (principal) | CPT/HCPCS: 93306 ==

== ENCOUNTER 2023-07-06 09:16 | Outpatient (AMB) | payer MEDICARE, SELFPAY ==
--- NOTE | 2023-07-06 09:21 | A.OFFVIS_ITS ---
Intake Vital Signs 07/06/23 09:22 Height 5 ft 11 in Weight 240 lb 4.862 oz BMI 33.5 BP 100/68 Blood Pressure Location Lt brachial Position Sitting Pulse 54 Intake Visit Reasons: 6 mth fu Intake Note: 6 month follow-up feeling good walking 2 miles a day Import Coordination And Production Head Required: No Allergies lisinopril Adverse Reaction (Intermediate, Verified 06/02/23 10:30) cough Medication List - Last Reconciled 07/06/23 by Berny Kwon MD amlodipine 10 mg PO DAILY apixaban 5 mg PO BID atenolol 50 mg PO DAILY compress.stocking,knee,reg,lrg As directed 20-30 mm HG cyanocobalamin (vitamin B-12) 1,000 mcg PO DAILY finasteride 5 mg PO DAILY 90 days losartan 25 mg PO DAILY terazosin 5 mg PO BEDTIME 90 days HPI HPI Comments History of Present Illness Details 72-year-old gentleman with left bundle-branch block, mild aortic valve stenosis and mildly dilated ascending aorta. He is here for follow-up today. No chest pain or shortness of breath. He has no symptoms. He has been on amlodipine for long time and has some lower extremity edema which he has noticed recently. He also got diagnosed with BPH and has been started on terazosin which were increased to 10 mg. Was started on Eliquis for atrial fibrillation. Blood pressure control is good. He is denying any CP or SOB. No bleeding concerns. ECG is showing Afib and he has intermittent LBBB. 07/06/23: He is here for follow-up. He has been exercising and walking up to 2 miles per day. Denying any chest discomfort shortness of breath. No dizziness or lightheadedness. He bought a blood pressure cuff and has been monitoring his heart rate at home. He has documented heart rates as low as 37 and low 40s. He is currently 54 beats per minute. He is taking atenolol 50 mg daily. His blood pressure also is 100/68. He is denying any symptoms at this point. Echocardiography report was discussed in detail with the patient. [facility] Medical History Ascending aorta dilation Benign essential hypertension Benign prostatic hyperplasia Cataract Claudication of left lower extremity LBBB (left bundle branch block) Left hamstring muscle strain Obesity (BMI 30-39.9) PAF (paroxysmal atrial fibrillation) Screening for colon cancer Screening for diabetes mellitus Screening for prostate cancer Spinal stenosis, lumbar region with neurogenic claudication Vitamin D deficiency Weak urinary stream Surgical History Deficient knowledge of scrotal surgery H/O meniscectomy of right knee History of arthroscopy of left knee History of cataract surgery History of colonoscopy History of inguinal hernia repair History of prostate surgery History of surgery Family History Father Colon cancer Mother No problems noted. 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 Cognitive needs: No Hearing needs: No Vision needs: Yes Review of Systems Const Denies chills, Denies fatigue, Denies fever(s), Denies frequent falls, Denies weakness, Denies weight gain and Denies weight loss ENT Denies dizziness Card Denies chest pain, Denies leg edema, Denies lightheadedness, Denies palpitations, Denies dyspnea, Denies dyspnea on exertion, Denies orthopnea and Denies other (loss of consciousness) Resp Denies cough, Denies dyspnea and Denies dyspnea on exertion GI Denies hematochezia and Denies change in stool character Musc Denies abnormal gait, Denies muscle weakness, Denies numbness, Denies radiating pain into limb and Denies tingling Neuro Denies abnormal gait, Denies dizziness, Denies frequent falls, Denies numbness, Denies tingling and Denies weakness Endo Denies fatigue and Denies palpitations Physical Exam Vital Signs: Last Vital Signs Pulse 54 07/06/23 09:22 BP 100/68 07/06/23 09:22 BMI result Body Mass Index 33.5 GENERAL APPEARANCE: in no acute distress, pleasant. NECK: no carotid bruit, no jugular venous distention. SKIN: no suspicious lesions, warm and dry. HEART: no murmurs, bradycardic. LUNGS: clear to auscultation bilaterally. ABDOMEN: soft, nontender. EXTREMITIES: 1+ edema. Left more than right. PERIPHERAL PULSES: equal. NEUROLOGIC: No gross deficits, AAO X 3 Assessment & Plan Assessment & Plan (1) Mild aortic stenosis: Code(s): I35.0 - Nonrheumatic aortic (valve) stenosis (2) Benign essential hypertension: Code(s): I10 - Essential (primary) hypertension (3) Ascending aorta dilation: Code(s): I77.810 - Thoracic aortic ectasia Plan Pleasant 72-year-old gentleman who is here for follow-up. He has history of atrial fibrillation and has been on apixaban. He has hypertension and takes losartan 25 mg daily, atenolol 50 mg daily and amlodipine 10 mg daily. He has noticed slow heart rates at home as low as 37 beats per minute. He is on atenolol 50 mg daily. Blood pressure is 100/68. I have advised him to decrease the atenolol to 25 mg daily. He will continue other medications as before. He is clinically asymptomatic at this point. He is exercising regularly and I have advised him to continue that. He has mild dilation of ascending aorta which is stable. He will have repeat echocardiography in 1-2 years. He has mild aortic valve stenosis. He will follow-up with us in 6 months. Thank you for allowing me to participate in the care of your patient. Please feel free to contact me if you have any questions. Medications: Changed From atenolol 50 mg PO DAILY 90 tabs 2RF To atenolol 25 mg (1/2 x 50 mg) PO DAILY 90 tabs 2RF Coding Level of Care Code Est Pt Level 4 (25668) Diagnoses Mild aortic stenosis I35.0 Benign essential hypertension I10 Ascending aorta dilation I77.810
[2023-07-06 09:22] VITALS: BP 100/68; PULSE 54; BMI 33.5
== END 2023-07-06 09:53 | disposition home or self-care (01) ==
PROVIDERS: PCP Internal Medicine; Visit Provider Internal Medicine Cardiovascular Disease
DX: I35.0 Nonrheumatic aortic (valve) stenosis (principal); I10 Essential (primary) hypertension; I77.810 Thoracic aortic ectasia
CPT/HCPCS: 99214

== ENCOUNTER → 2023-07-06 09:16 | Outpatient (BNVA) | payer MEDICARE, SELFPAY | PROVIDERS: PCP Internal Medicine; Visit Provider Internal Medicine Cardiovascular Disease | DX: I35.0 Nonrheumatic aortic (valve) stenosis (principal); I10 Essential (primary) hypertension; I77.810 Thoracic aortic ectasia | CPT/HCPCS: 99212 ==

== ENCOUNTER 2023-07-13 10:42 | Outpatient (AMB) | payer MEDICARE, SELFPAY ==
[2023-07-13 10:57] VITALS: BP 100/58; PULSE 43; O2SAT 97; BMI 32.8
--- NOTE | 2023-07-13 10:57 | A.OFFPC_ITS ---
Vital Signs 07/13/23 10:57 07/13/23 11:48 Height 5 ft 11 in Weight 235 lb BMI 32.8 BP 100/58 L 130/70 Blood Pressure Location Lt brachial Lt brachial Position Sitting Sitting Pulse 43 L Pulse Source Pulse Oximeter Temp Source Skin Pulse Oximetry (%) 97 Oxygen Delivery Method Room Air Intake Visit Reasons: Aortic stenosis, BPH, hypertension C4 Planner Required: No Allergies lisinopril Adverse Reaction (Intermediate, Verified 07/13/23 11:09) cough Medication List - Last Reconciled 07/13/23 by Cathie Ruano MD amlodipine 10 mg PO DAILY apixaban 5 mg PO BID atenolol 25 mg (1/2 x 50 mg) PO DAILY compress.stocking,knee,reg,lrg As directed 20-30 mm HG cyanocobalamin (vitamin B-12) 1,000 mcg PO DAILY finasteride 5 mg PO DAILY 90 days losartan 25 mg PO DAILY terazosin 5 mg PO BEDTIME 90 days Tobacco use date assessed: 07/13/23 Fall risk assessment: No Falls in past year Last assessed Fall Risk: 07/13/23 Dental Screening Dental Screen Date: 07/13/23 Did you have a dental visit in the last 12 months?: No Did you have a dental problem in the last 6 months where you did not have access to dental care?: No HPI Aortic stenosis, BPH, hypertension HPI Details 72-year-old obese male with hypertension BPH impaired glucose tolerance mild aortic stenosis atrial fibrillation coming in for follow-up. Last seen in March 2023. Patient did have colonoscopy done May 2023. Noted noted bradycardia and hypotension and so advised to decrease atenolol to 25 mg once a day echocardiogram done June 2023Normal left ventricular size and systolic function. There is mildly increased left ventricular wall thickness. The visually estimated ejection fraction is between 55-60%. - Mildly increased right ventricular cav ity size. There is mildly decreased right ventricular systolic function. - The left atrium is severely dilated. - There is mild aortic valve stenosis. 2.2 cm - There is mild aortic valve regurgitati on. 4.1 p.m. - Mildly elevated right atrial pressure. Mild pulmonary hypertension is present. Patient follows up with urology also had a GreenLight April 2023, trans urethral resection has that terazosin 5 mg once a day Colonoscopy June 2023 5 year [facility] Medical History Ascending aorta dilation Benign essential hypertension Benign prostatic hyperplasia Cataract Claudication of left lower extremity LBBB (left bundle branch block) Left hamstring muscle strain Obesity (BMI 30-39.9) PAF (paroxysmal atrial fibrillation) Screening for colon cancer Screening for diabetes mellitus Screening for prostate cancer Spinal stenosis, lumbar region with neurogenic claudication Vitamin D deficiency Weak urinary stream Surgical History Deficient knowledge of scrotal surgery H/O meniscectomy of right knee History of arthroscopy of left knee History of cataract surgery History of colonoscopy History of inguinal hernia repair History of prostate surgery History of surgery Family History Father Colon cancer Mother No problems noted. 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 How often do you have a drink containing alcohol?: Monthly or less 2. How many drinks containing alcohol do you have on a typical day when you are drinking?: 1 or 2 3. How often do you have six or more drinks on one occasion?: Never Total Score: 1 Score Reviewed/Action Taken: No MARIELA-7 AMB Questionnaire MARIELA-7 Date MARIELA - 7 assessed: 12/08/22 Source: Developed by Drs. Puneet Hardin, Janette Butt, Shay Castillo and colleagues, with an educational zeina from [employer]. Physical exam (Primary Care) Vital Signs: Last Vital Signs Pulse 43 L 07/13/23 10:57 BP 100/58 L 07/13/23 10:57 Pulse Ox 97 07/13/23 10:57 Oxygen Delivery Method Room Air 07/13/23 10:57 BMI result Body Mass Index 32.8 Tobacco/Smoking Status: Tobacco use Status Tobacco use date assessed 07/13/23 07/13/23 10:58 Patient Tobacco Use Status Former Tobacco user 07/13/23 10:58 e-Cigarette/Vaping Use Never Used 07/13/23 10:58 Thrive Assessment: Date of Thrive Assessment Date Thrive assessed 12/08/22 07/13/23 10:58 Const General: alert; No acute distress Eyes Conjunctivae: conjunctivae normal Resp Auscultation: clear to auscultation bilaterally Cardio Rate: regular rate Rhythm: regular rhythm GI Inspection: Yes normal to inspection Extrem General: Yes normal to inspection and No edema Office Procedures Flu Questionnaire Does the patient have a severe egg allergy?: No Does the patient have severe life threatening allergies?: No Does the patient have a fever or illness today?: No Has the patient ever had Guillain-Sav[place] Syndrome?: No Has the patient ever had any past reaction to a flu shot?: No Immunizations flu vacc [id number] 6mos up(PF) 60 mcg(15 mcgx4)/0.5 mL IM syringe Performing Provider: Cathie Ruano MD [facility] Administered by: JULIOCESAR Fitzgerald on 07/13/23 11:13 Dose Route Admin Location Dispensed Lot Number Expiration Date NDC Extractor Tender Raw Stock 0.5 mL IM Left Deltoid 0.5 mL [id number] 04/10/24 [id number] [employer] VIS Given Date VIS Provided VIS Publication Date 07/13/23 Single Vaccine 21 Eligibility Eligibility Date Funding Source Not [facility] Eligible 07/13/23 Private Assessment and Plan Assessment & Plan (1) Benign essential hypertension: Code(s): I10 - Essential (primary) hypertension Plan: Continue with blood pressure medication. Decrease salt intake and exercise patient on amlodipine 10 mg once a day atenolol drop down to 25 mg once a day and losartan 25 mg once a day. (2) Benign prostatic hyperplasia: Comment: Trans urethral resection April [address]23 [address]. Bryant Code(s): N40.0 - Benign prostatic hyperplasia without lower urinary tract symptoms Qualifiers: Lower urinary tract symptom presence: symptoms present Lower urinary tract symptom detail: urinary frequency Qualified Code(s): N40.1 - Benign prostatic hyperplasia with lower urinary tract symptoms; R35.0 - Frequency of micturition Plan: Patient follows up with urology had transurethral resection April 2023 on terazosin 5 mg once a day and finasteride 5 mg once a day (3) Ascending aorta dilation: Comment: June 2023 4.1 cm Code(s): I77.810 - Thoracic aortic ectasia Plan: Patient is being followed up by Cardiology echocardiogram last done June 2020 (4) Obesity (BMI 30-39.9): Code(s): E66.9 - Obesity, unspecified Plan: Diet and exercise (5) Chronic atrial fibrillation: Code(s): I48.20 - Chronic atrial fibrillation, unspecified Plan: Continue with anticoagulation at least twice a year of renal function (6) Mild aortic stenosis: Comment: June 2023 2.2 cm Code(s): I35.0 - Nonrheumatic aortic (valve) stenosis Plan: Echocardiogram followed by Cardiology (7) Impaired fasting blood sugar: Code(s): R73.01 - Impaired fasting glucose Plan: Decrease the amount of carbohydrate intake, pasta, bread, rice and potatoes are all sugar and that is aside from all the sweet stuff, remember that fruits are good but they are Sweet also. Orders: Orders 2 Influenza [id number] Immunization Today Z23 - Encounter for immunization Hemoglobin A1c 3 Months R73.01 - Impaired fasting glucose Comprehensive Met. Panel 3 Months R73.01 - Impaired fasting glucose Complete Blood Count Auto Diff 3 Months R73.01 - Impaired fasting glucose Coding Level of Care Code Est Pt Level 4 (76480) Diagnoses Benign essential hypertension I10 Benign prostatic hyperplasia with urinary frequency N40.1; R35.0 Lower urinary tract symptom presence: symptoms present Lower urinary tract symptom detail: urinary frequency Ascending aorta dilation I77.810 Obesity (BMI 30-39.9) E66.9 Chronic atrial fibrillation I48.20 Mild aortic stenosis I35.0 Impaired fasting blood sugar R73.01
[2023-07-13 11:48] VITALS: BP 130/70
== END 2023-07-13 12:02 | disposition home or self-care (01) ==
PROVIDERS: PCP Internal Medicine; Visit Provider Internal Medicine
DX: Z23 Encounter for immunization (principal); I35.0 Nonrheumatic aortic (valve) stenosis; I10 Essential (primary) hypertension; I48.20 Chronic atrial fibrillation, unspecified; R73.01 Impaired fasting glucose
CPT/HCPCS: 90471; 90686; 99214

== ENCOUNTER 2023-12-24 08:42 | Outpatient (REF) | payer MEDICARE, SELFPAY ==
[2023-12-24 09:09] LABS: MANUAL DIFF FLAG NO
[2023-12-24 09:30] LABS: Basophils Absolute Auto 0.1 X10*3/uL (0.0-0.2); Eosinophils Absolute Auto 0.1 X10*3/uL (0.0-0.4); Eosinophils Percent Auto 1.9 % (0-4); Hematocrit 44.5 % (42.0-52.0); Hemoglobin 14.8 g/dl (14.0-18.0); Imm Gran Abs Auto 0.02 X10*3/uL (0.00-0.03); Imm Gran Pct Auto 0.3 % (0.0-0.4); Lymphocytes Absolute Auto 1.5 X10*3/uL (1.2-4.9); Lymphocytes Percent Auto 24.1 % (20-40); Mean Corpuscular HGB Conc 33.3 g/dl (31.0-36.0); Mean Corpuscular Hemoglobin 32.5 pg (27.0-33.0); Mean Corpuscular Volume 97.8 fL (80.0-98.0); Mean Platelet Volume 8.8 fL (9.4-12.4); Monocytes Absolute Auto 0.8 X10*3/uL (0.1-1.2); Monocytes Percent Auto 13.3 % (2-11); Neutrophils Absolute Auto 3.7 x10*3/uL (2.0-8.3); Neutrophils Percent Auto 59.4 % (45-73); Platelet Count 240 X10*3/uL (160-400); Red Blood Count 4.55 X10*6/uL (4.60-5.80); Red Cell Distribution Width 14.1 % (11.0-16.0); White Blood Count 6.2 X10*3/uL (4.8-10.8)
[2023-12-24 09:44] LABS: Estimated Average Glucose 114 mg/dL; Hemoglobin A1c % 5.6 % (<6.0)
[2023-12-24 10:01] LABS: Alanine Aminotransferase 26 U/L (0-40); Alkaline Phosphatase 95 U/L (39-117); Anion Gap 10 (12-20); Aspartate Amino Transferase 21 U/L (5-37); Bilirubin Total 0.9 mg/dL (0.0-1.0); Blood Urea Nitrogen 15 mg/dL (9-16); Carbon Dioxide 29 mmol/L (22-29); Chloride 107 mmol/L (96-108); Estimated Glomerular Filt Rate > 60; Glucose Random 116 mg/dL (60-115); Potassium 4.1 mmol/L (3.3-5.1); Sodium 142 mmol/L (135-145)
== END 2023-12-24 08:43 | disposition home or self-care (01) ==
LOC: HO.LAB 08:42
PROVIDERS: PCP Internal Medicine; Visit Provider Internal Medicine
DX: R73.01 Impaired fasting glucose (principal)
CPT/HCPCS: 36415; 80053; 83036; 85025

== ENCOUNTER 2023-12-28 09:31 | Outpatient (AMB) | payer MEDICARE, SELFPAY ==
[2023-12-28 09:43] VITALS: BP 130/60; PULSE 55; BMI 33.5
--- NOTE | 2023-12-28 09:43 | A.OFFVIS_ITS ---
Intake Vital Signs 12/28/23 09:43 Height 5 ft 11 in Weight 239 lb 13.807 oz BMI 33.5 BP 130/60 Blood Pressure Location Lt brachial Position Sitting Pulse 55 Intake Visit Reasons: 6 mth f/up Intake Note: pt its here for a 6mth f/up/ pt states that he its doing great. Consumer Lender Required: No Accompanied by: Self / Same As Patient Allergies lisinopril Adverse Reaction (Intermediate, Verified 07/13/23 11:09) cough Medication List - Last Reconciled 12/28/23 by Berny Kwon MD amlodipine 10 mg PO DAILY apixaban 5 mg PO BID atenolol 25 mg PO DAILY compress.stocking,knee,reg,lrg As directed 20-30 mm HG cyanocobalamin (vitamin B-12) 1,000 mcg PO DAILY finasteride 5 mg PO DAILY 90 days losartan 25 mg PO DAILY terazosin 5 mg PO BEDTIME 90 days HPI HPI Comments History of Present Illness Details 73-year-old gentleman with left bundle-branch block, mild aortic valve stenosis and mildly dilated ascending aorta. He is here for follow-up today. No chest pain or shortness of breath. He has no symptoms. He has been on amlodipine for long time and has some lower extremity edema which he has noticed recently. He also got diagnosed with BPH and has been started on terazosin which were increased to 10 mg. Was started on Eliquis for atrial fibrillation. Blood pressure control is good. He is denying any CP or SOB. No bleeding concerns. ECG is showing Afib and he has intermittent LBBB. 07/06/23: He is here for follow-up. He has been exercising and walking up to 2 miles per day. Denying any chest discomfort shortness of breath. No dizziness or lightheadedness. He bought a blood pressure cuff and has been monitoring his heart rate at home. He has documented heart rates as low as 37 and low 40s. He is currently 54 beats per minute. He is taking atenolol 50 mg daily. His blood pressure also is 100/68. He is denying any symptoms at this point. Echocardiography report was discussed in detail with the patient. 12/28/2023: He returns for follow-up. H e has been doing well. He is started walking and is walking up to 3 miles per day. No chest discomfort shortness of breath. No dizziness or lightheadedness. Heart rate 55 beats per minute in atrial fibrillation. He is taking atenolol at a lower dose of 25 mg daily. He is complaining of some lower extremity edema and has been using compression stockings but is saying that they do not help. He is on amlodipine 10 mg daily which is likely cause for the peripheral edema. No symptoms/signs of heart failure. [facility] Medical History Ascending aorta dilation Benign essential hypertension Benign prostatic hyperplasia Cataract Claudication of left lower extremity LBBB (left bundle branch block) Left hamstring muscle strain Obesity (BMI 30-39.9) PAF (paroxysmal atrial fibrillation) Screening for colon cancer Screening for diabetes mellitus Screening for prostate cancer Spinal stenosis, lumbar region with neurogenic claudication Vitamin D deficiency Weak urinary stream Surgical History History of prostate surgery History of colonoscopy History of cataract surgery History of surgery H/O meniscectomy of right knee Deficient knowledge of scrotal surgery History of inguinal hernia repair History of arthroscopy of left knee Family History Father Colon cancer Mother No problems noted. 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 NECK: no carotid bruit, no jugular venous distention. SKIN: no suspicious lesions, warm and dry. HEART: Systolic murmur aortic area with preserved 2nd heart sound, bradycardic. LUNGS: clear to auscultation bilaterally. ABDOMEN: soft, nontender. EXTREMITIES: 1+ edema. PERIPHERAL PULSES: equal. NEUROLOGIC: No gross deficits, AAO X 3 Office Procedures EKG Details: Atrial fibrillation with slow ventricular response 55 beats per minute, aberrant conduction versus rate related left bundle-branch block, nonspecific ST changes, QTC 404 milliseconds [id number], Complete Assessment & Plan Assessment & Plan (1) Benign essential hypertension: Code(s): I10 - Essential (primary) hypertension (2) Chronic atrial fibrillation: Code(s): I48.20 - Chronic atrial fibrillation, unspecified (3) Mild aortic stenosis: Comment: June 2023 2.2 cm Code(s): I35.0 - Nonrheumatic aortic (valve) stenosis Plan Pleasant 73 year gentleman who is here for follow-up. He has background of hypertension. Blood pressure is well controlled amlodipine, atenolol and losartan. He is also on terazosin for BPH. He has peripheral edema likely due to amlodipine 10 mg daily. I have advised him to use 5 mg twice a day to see if that improves his edema. If that does not work then we will decrease the dose to 5 mg daily and we may have to adjust his other antihypertensive medications in that scenario. Permanent atrial fibrillation. Asymptomatic. No dizziness/syncope. He is bradycardic at baseline and is on atenolol 25 mg daily. Thank you for allowing me to participate in the care of your patient. Please feel free to contact me if you have any questions. Medications: New amlodipine 5 mg PO BID 180 tabs 3RF Discontinued amlodipine Discontinued Reason: Doctor's Order 10 mg PO DAILY 90 tabs 2RF I10 - Essential (primary) hypertension Coding Level of Care Code Est Pt Level 4 (84293) Diagnoses Benign essential hypertension I10 Chronic atrial fibrillation I48.20 Mild aortic stenosis I35.0 CPT Codes EKG - CPT: 30230-Crwbvgoqremrgegua, Complete ([id number])
== END 2023-12-28 10:24 | disposition home or self-care (01) ==
PROVIDERS: PCP Internal Medicine; Visit Provider Internal Medicine Cardiovascular Disease
DX: I10 Essential (primary) hypertension (principal); I48.20 Chronic atrial fibrillation, unspecified; I35.0 Nonrheumatic aortic (valve) stenosis
CPT/HCPCS: 93010; 99214

== ENCOUNTER → 2023-12-28 09:31 | Outpatient (BNVA) | payer MEDICARE, SELFPAY | PROVIDERS: PCP Internal Medicine; Visit Provider Internal Medicine Cardiovascular Disease | DX: I48.20 Chronic atrial fibrillation, unspecified (principal); I35.0 Nonrheumatic aortic (valve) stenosis; I10 Essential (primary) hypertension | CPT/HCPCS: 93005; 99212 ==

== ENCOUNTER 2024-01-05 08:50 | Outpatient (REF) | payer MEDICARE, SELFPAY ==
[2024-01-05 10:08] LABS: Prostate Specific Antigen 0.31 ng/mL (<0.05-4.0)
== END 2024-01-05 08:51 | disposition home or self-care (01) ==
LOC: HO.LAB 08:50
PROVIDERS: PCP Internal Medicine; Visit Provider Urology
DX: N40.1 Benign prostatic hyperplasia with lower urinary tract symptoms (principal); R35.0 Frequency of micturition; Z12.5 Encounter for screening for malignant neoplasm of prostate
CPT/HCPCS: 36415; 84153

== ENCOUNTER 2024-01-12 08:42 | Outpatient (AMB) | payer MEDICARE, SELFPAY ==
--- NOTE | 2024-01-12 08:46 | A.OFFVIS_ITS ---
Intake Intake Visit Reasons: 8M Follow Up: PSA(set)Confirmed Intake Note: Patient is Present for Follow Up Urology Medication: Finasteride, Terazosin Antibiotic Allergies: None Blood Thinners: Apixaban Pharmacy: [facility] PVR: 0 Allergies lisinopril Adverse Reaction (Intermediate, Verified 01/12/24 08:54) cough HPI HPI Comments History of Present Illness Details Tenzin is a pleasant male. He is a patient of Dr. Ruano. He is seen for the following urologic condition - urinary retention - bladder outlet obstruction Six-month follow-up from [facility] procedure PSA low, PVR 0 May come off medications Six-month follow-up repeat PVR. Stable were move to yearly. Urinary retention May 2021 seen in emergency room with 600 cc residual - passed voiding trial Current therapy for BPH terazosin 5mg and finasteride Cystoscopy - 06/01 enlarged median lobe PSA 06/01 2.1, 08/02 0.6, 01/02 0.3 GreenLight laser - 05/03 [facility], [facility] Medical History Screening for colon cancer Screening for prostate cancer Screening for diabetes mellitus Spinal stenosis, lumbar region with neurogenic claudication Claudication of left lower extremity Left hamstring muscle strain Weak urinary stream PAF (paroxysmal atrial fibrillation) LBBB (left bundle branch block) Cataract Vitamin D deficiency Obesity (BMI 30-39.9) Ascending aorta dilation Benign prostatic hyperplasia Benign essential hypertension Surgical History History of prostate surgery History of colonoscopy History of cataract surgery History of surgery H/O meniscectomy of right knee Deficient knowledge of scrotal surgery History of inguinal hernia repair History of arthroscopy of left knee Family History Father Colon cancer Mother No problems noted. 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 Cognitive needs: No Hearing needs: No Vision needs: Yes Review of Systems Const Denies chills and Denies fever(s) Card Reports no additional complaints and Denies syncope Resp Denies cough GI Denies abdominal pain and Denies heartburn Reports as per HPI and Denies change in libido Neuro Denies syncope Psych Denies change in libido Endo Denies change in libido Physical Exam Const General: cooperative, healthy appearing, comfortable and no acute distress Orientation/consciousness: patient oriented x3 HEENT Face and sinus: Yes normal facial exam Mouth: moist mucous membranes Neck Neck: Yes normal visual inspection, Yes full ROM and Yes trachea midline Chest Chest palpation & inspection: normal inspection of the chest Resp Effort & Inspection: normal respiratory effort, able to speak in complete sentences and no respiratory distress GI Inspection: Yes normal to inspection Back/Spine/Pelvis Cervical Spine: normal cervical lordosis Thoracic/Lumbar Spine: thoracic and lumbar spine normal to inspection Skin General skin exam: no rashes or lesions noted Neuro General: patient oriented x3, gait normal, tone normal and moves all extremities Extrem General: Yes normal to inspection and Yes capillary refill normal Office Procedures Post Void Residual Post Residual Void Post Void Residual (PVR): 0 [id number] Void Residual by ultrasound Assessment & Plan Assessment & Plan (1) Urinary retention with incomplete bladder emptying: Code(s): R33.9 - Retention of urine, unspecified (2) Benign prostatic hyperplasia: Comment: Trans urethral resection April [address]23 Dr. Bryant Code(s): N40.0 - Benign prostatic hyperplasia without lower urinary tract symptoms Qualifiers: Lower urinary tract symptom presence: symptoms present Lower urinary tract symptom detail: urinary frequency Qualified Code(s): N40.1 - Benign prostatic hyperplasia with lower urinary tract symptoms; R35.0 - Frequency of micturition Plan Six-month follow-up PVR Orders: Orders Prostate Specific Antigen 01/05/24 N40.1 - Benign prostatic hyperplasia with lower urinary tract symptoms, R35.0 - Frequency of micturition AMB Post Void Residual by ultrasound Today R33.9 - Retention of urine, unspecified Patient Instructions: Imaging studies, laboratory and physical exam results were discussed and reviewed in detail. No major barriers to patient understanding were identified. An opportunity to ask questions regarding the treatment plan was provided. All questions were answered. The patient expressed understanding and agreement with the above treatment plan. The patient is aware they should contact our office by phone for worsening of their current condition or the appearance of new urologic symptoms. Compliance is encouraged with any medications and followup testing that is ordered. It is a privilege to participate in the urologic care of your patient. If you have any questions or concerns regarding treatment for the above conditions, or other urologic issues, please do not hesitate to contact me. The office telephone contact is [phone]. This note is constructed using voice recognition software. While every effort has been made to ensure accuracy audit tech errors may have been included. Yours sincerely, Dr Willi Bryant MD, [facility] - Urology Providers of Expert, Compassionate Care for the Genitourinary System Coding Level of Care Code Est Pt Level 3 (52122) Diagnoses Urinary retention with incomplete bladder emptying R33.9 Benign prostatic hyperplasia with urinary frequency N40.1; R35.0 Lower urinary tract symptom presence: symptoms present Lower urinary tract symptom detail: urinary frequency CPT Codes Post Residual Void - PVR CPT Code: 23236-Vjny Void Residual by ultrasound ( [id number])
== END 2024-01-12 09:04 | disposition home or self-care (01) ==
PROVIDERS: PCP Internal Medicine; Visit Provider Urology
DX: R33.9 Retention of urine, unspecified (principal); N40.1 Benign prostatic hyperplasia with lower urinary tract symptoms; R35.0 Frequency of micturition
CPT/HCPCS: 99213

== ENCOUNTER → 2024-01-12 08:42 | Outpatient (BNVA) | payer MEDICARE, SELFPAY | PROVIDERS: PCP Internal Medicine; Visit Provider Urology | DX: N40.1 Benign prostatic hyperplasia with lower urinary tract symptoms (principal); R33.9 Retention of urine, unspecified; R35.0 Frequency of micturition | CPT/HCPCS: 51798; 99212 ==

== ENCOUNTER 2024-07-05 09:01 | Outpatient (REF) | payer MEDICARE, SELFPAY | END 2024-07-05 09:02 | disposition home or self-care (01) | LOC: HO.LAB 09:01 | PROVIDERS: Visit Provider Urology | DX: Z12.5 Encounter for screening for malignant neoplasm of prostate (principal) | CPT/HCPCS: 36415; 84153 ==

== ENCOUNTER 2024-07-12 10:01 | Outpatient (AMB) | payer MEDICARE, SELFPAY ==
--- NOTE | 2024-07-12 10:00 | MHC.OFFVIS ---
Intake Visit Reasons: 6M Follow Up-PSA(set) Intake Note: Patient is Present for Follow Up PSA Urology Medication: Terazosin, Finasteride Antibiotic Allergies: None Blood Thinners: Apixaban(Eliquis) Last PVR: 0 Recent PSA: 07/05/24- 0.90 Recent Hemoglobin A1C: 12/2023- 5.6 Supervisor Press Room Required: No Accompanied by: Self / Same As Patient Allergies lisinopril Adverse Reaction (Intermediate, Verified 07/12/24 10:04) cough Medication List - Last Reconciled 07/12/24 by Willi Bryant MD amlodipine 5 mg PO BID apixaban 5 mg PO BID atenolol 25 mg PO DAILY compress.stocking,knee,reg,lrg As directed 20-30 mm HG cyanocobalamin (vitamin B-12) 1,000 mcg PO DAILY finasteride 5 mg PO DAILY 90 days losartan 25 mg PO DAILY terazosin 5 mg PO BEDTIME 90 days HPI Comments Details: Tenzin is a pleasant male. He is a patient of Dr. Ruano. He is seen for the following urologic condition - urinary retention - bladder outlet obstruction One year follow-up GreenLight procedure PSA low, PVR 0 Stable may move to yearly Urinary retention May 2021 seen in emergency room with 600 cc residual - passed voiding trial Current therapy for BPH terazosin 5mg and finasteride Cystoscopy - 06/01 enlarged median lobe PSA 06/01 2.1, 08/02 0.6, 01/02 0.3, 07/05 0.9 GreenLight laser - 05/03 [facility] Medical History Screening for colon cancer Screening for prostate cancer Screening for diabetes mellitus Spinal stenosis, lumbar region with neurogenic claudication Claudication of left lower extremity Left hamstring muscle strain Weak urinary stream PAF (paroxysmal atrial fibrillation) LBBB (left bundle branch block) Cataract Vitamin D deficiency Obesity (BMI 30-39.9) Ascending aorta dilation Benign prostatic hyperplasia Benign essential hypertension Surgical History History of prostate surgery History of colonoscopy History of cataract surgery History of surgery H/O meniscectomy of right knee Deficient knowledge of scrotal surgery History of inguinal hernia repair History of arthroscopy of left knee Family History Father Colon cancer Mother No problems noted. 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 Cognitive needs: No Hearing needs: No Vision needs: Yes Review of Systems Const Denies chills and Denies fever(s) Card Reports no additional complaints and Denies syncope Resp Denies cough GI Denies abdominal pain and Denies heartburn Reports as per HPI and Denies change in libido Neuro Denies syncope Psych Denies change in libido Endo Denies change in libido Physical Exam Const General: cooperative, healthy appearing, comfortable and no acute distress Orientation/consciousness: patient oriented x3 HEENT Face and sinus: Yes normal facial exam Mouth: moist mucous membranes Neck Neck: Yes normal visual inspection, Yes full ROM and Yes trachea midline Chest Chest palpation & inspection: normal inspection of the chest Resp Effort & Inspection: normal respiratory effort, able to speak in complete sentences and no respiratory distress GI Inspection: Yes normal to inspection Back/Spine/Pelvis Cervical Spine: normal cervical lordosis Thoracic/Lumbar Spine: thoracic and lumbar spine normal to inspection Skin General skin exam: no rashes or lesions noted Neuro General: patient oriented x3, gait normal, tone normal and moves all extremities Extrem General: Yes normal to inspection and Yes capillary refill normal Assessment & Plan Assessment & Plan (1) Urinary retention with incomplete bladder emptying: Code(s): R33.9 - Retention of urine, unspecified Category: Medical Plan Twelve month follow-up PSA Orders: Orders Prostate Specific Antigen 364 Days R33.9 - Retention of urine, unspecified Prostate Specific Antigen 07/05/24 Z12.5 - Encounter for screening for malignant neoplasm of prostate Patient Instructions: Imaging studies, laboratory and physical exam results were discussed and reviewed in detail. No major barriers to patient understanding were identified. An opportunity to ask questions regarding the treatment plan was provided. All questions were answered. The patient expressed understanding and agreement with the above treatment plan. The patient is aware they should contact our office by phone for worsening of their current condition or the appearance of new urologic symptoms. Compliance is encouraged with any medications and followup testing that is ordered. It is a privilege to participate in the urologic care of your patient. If you have any questions or concerns regarding treatment for the above conditions, or other urologic issues, please do not hesitate to contact me. The office telephone contact is [phone]. This note is constructed using voice recognition software. While every effort has been made to ensure accuracy operating room surgical technologist errors may have been included. Yours sincerely, Dr Willi Bryant MD, [facility] - Urology Providers of Expert, Compassionate Care for the Genitourinary System Coding Level of Care Code Est Pt Level 3 (81303) Diagnoses Urinary retention with incomplete bladder emptying R33.9
== END 2024-07-12 11:02 | disposition home or self-care (01) ==
PROVIDERS: PCP Internal Medicine; Visit Provider Urology
DX: R33.9 Retention of urine, unspecified (principal)
CPT/HCPCS: 99213

== ENCOUNTER → 2024-07-12 10:01 | Outpatient (BNVA) | payer MEDICARE, SELFPAY | PROVIDERS: PCP Internal Medicine; Visit Provider Urology | DX: R33.9 Retention of urine, unspecified (principal); N32.0 Bladder-neck obstruction | CPT/HCPCS: 99212 ==

== ENCOUNTER 2024-09-13 14:09 | Outpatient (AMB) | payer MEDICARE, SELFPAY ==
[2024-09-13 14:14] VITALS: BP 134/78; PULSE 75; O2SAT 98; BMI 31.7
--- NOTE | 2024-09-13 14:14 | MHC.PC.OV ---
Vital Signs 09/13/24 14:14 Height 5 ft 11 in Weight 227 lb BMI 31.7 BP 134/78 Blood Pressure Location Lt brachial Position Sitting Pulse 75 Pulse Source Pulse Oximeter Pulse Oximetry (%) 98 Oxygen Delivery Method Room Air Intake Visit Reasons: Regular visit Allergies lisinopril Adverse Reaction (Intermediate, Verified 09/13/24 14:14) cough Tobacco use date assessed: 09/13/24 Fall risk assessment: No Falls in past year Last assessed Fall Risk: 09/13/24 Dental Screening Dental Screen Date: 09/13/24 Did you have a dental visit in the last 12 months?: Yes Did you have a dental problem in the last 6 months where you did not have access to dental care?: No Was dental information given to patient?: Patient has dentist HPI Regular visit HPI Details 74-year-old obese male(noted 12 lb weight loss) with hypertension, BPH, history of ascending aorta dilatation, atrial fibrillation impaired glucose tolerance coming in for follow-up. Last seen in 07/31/2023. Patient's last colon test was in 05/31/2023. Review of the notes has seen Urology in July for BPH on terazosin and finasteride. Patient has being in monitored for the PSA. Patient has also seen Cardiology 12/30/2023 patient complains of lower extremity edema but is on amlodipine 10 mg once a day patient was advised to decrease the amlodipine to 5 mg dose. urinary parameters 2 x a night - good [facility] Medical History Screening for colon cancer Screening for prostate cancer Screening for diabetes mellitus Spinal stenosis, lumbar region with neurogenic claudication Claudication of left lower extremity Left hamstring muscle strain Weak urinary stream PAF (paroxysmal atrial fibrillation) LBBB (left bundle branch block) Cataract Vitamin D deficiency Obesity (BMI 30-39.9) Ascending aorta dilation Benign prostatic hyperplasia Benign essential hypertension Surgical History History of prostate surgery History of colonoscopy History of cataract surgery History of surgery H/O meniscectomy of right knee Deficient knowledge of scrotal surgery History of inguinal hernia repair History of arthroscopy of left knee Family History Father Colon cancer Mother No problems noted. 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 1. Little interest or pleasure in doing things: not at all 2. Feeling down, depressed, or hopeless: not at all 3. Trouble falling or staying asleep, or sleeping too much: not at all 4. Feeling tired or having little energy: not at all 5. Poor appetite or overeating: not at all 6. Feeling bad about yourself - or that you are a failure or have let yourself or your family down: not at all 7. Trouble concentrating on things, such as reading the newspaper or watching television: not at all 8. Moving or speaking so slowly that other people could have noticed. Or the opposite - being so fidgety or restless that you have been moving around a lot more than usual: not at all 9. Thoughts that you would be better off or of hurting yourself in some way: not at all Total score: 0 Depression Screening Interpretation: Negative Depression Screening Done: Yes 24224 - PHQ-9 Billing: Yes Source: Developed by Drs. Puneet Hardin, Janette Butt, Shay Castillo and colleagues, with an educational zeina from [employer]. Thrive Questionnaire Date Thrive assessed: 09/13/24 I am a: Patient What is your living situation today?: I have a steady place to live Within the past 12 months, did the food you bought not last and you didn't have the money to get more?: Never true Within the past 12 months, did you worry whether your food would run out before you got money to buy more?: Never true Do you have trouble paying for medicines?: No Do you have trouble getting transportation to medical appointments?: No Do you have trouble paying your heating and electricity bill?: No Do you have trouble taking care of your child, family member or friend?: No Do you have trouble with day-to-day activities such as bathing, preparing meals, shopping, managing finances, etc.?: No Are you currently unemployed and looking for a job?: No Are you interested in more education?: No Currently or been in a relationship where the following occur: No concerns reported THRIVE Score: 0 AUDIT C Alcohol Use Questionnaire (AUDIT-C) 1. How often do you have a drink containing alcohol?: Monthly or less 2. How many drinks containing alcohol do you have on a typical day when you are drinking?: 1 or 2 3. How often do you have six or more drinks on one occasion?: Never Total Score: 1 Score Reviewed/Action Taken: No MARIELA-7 AMB Questionnaire MARIELA-7 Date MARIELA - 7 assessed: 09/13/24 Feeling nervous, anxious, or on edge: 0 = Not at all Not being able to stop or control worryin = Not at all Worrying too much about different things: 0 = Not at all Trouble relaxin = Not at all Being so restless that it is hard to sit still: 0 = Not at all Becoming easily annoyed or irritable: 0 = Not at all Feeling afraid as if something awful might happen: 0 = Not at all Total MARIELA-7 score (0-4 normal; 5-9 mild; 10-14 moderate; 15-21 severe): 0 Source: Developed by Drs. Puneet Hardin, Janette Butt, Shay Castillo and colleagues, with an educational zeina from [employer]. Physical exam (Primary Care) Vital Signs: Last Vital Signs Pulse 75 09/13/24 14:14 BP 134/78 09/13/24 14:14 Pulse Ox 98 09/13/24 14:14 Oxygen Delivery Method Room Air 09/13/24 14:14 BMI result Body Mass Index 31.7 Tobacco/Smoking Status: Tobacco use Status Tobacco use date assessed 09/13/24 09/13/24 14:19 Patient Tobacco Use Status Former Tobacco user 09/13/24 14:19 Tobacco use type Cigarette 09/13/24 14:19 e-Cigarette/Vaping Use Never Used 09/13/24 14:19 PHQ-9: PHQ-9 Score PHQ-9: Total score 0 09/13/24 14:19 Depression Screening Interpretation: Negative Thrive Assessment: Date of Thrive Assessment Date Thrive assessed 09/13/24 09/13/24 14:19 Currently or been in a relationship where the following occur: No concerns reported Const General: alert; No acute distress Eyes Conjunctivae: conjunctivae normal Resp Auscultation: clear to auscultation bilaterally Cardio Other: Irregular rate and rhythm with systolic murmur GI Inspection: Yes normal to inspection Extrem General: Yes normal to inspection and No edema Coding Level of Care Code Est Pt Level 4 (94612) Complex EM visit Add On G2211 Diagnoses Benign essential hypertension I10 Ascending aorta dilation I77.810 Benign prostatic hyperplasia with urinary frequency N40.1; R35.0 Lower urinary tract symptom presence: symptoms present Lower urinary tract symptom detail: urinary frequency Obesity (BMI 30-39.9) E66.9 Chronic atrial fibrillation I48.20 Peripheral vascular disease I73.9 Impaired fasting blood sugar R73.01 Additional Codes PHQ-9 - 38594 - PHQ-9 Billing: Yes ([id number]) Assessment & Plan Assessment & Plan (1) Benign essential hypertension: Code(s): I10 - Essential (primary) hypertension Category: Medical Plan: Continue with blood pressure medication. Decrease salt intake and exercise atenolol 25 mg once a day amlodipine 5 mg twice a day and losartan 25 mg once a day (2) Ascending aorta dilation: Comment: June 2023 4.1 cm Code(s): I77.810 - Thoracic aortic ectasia Category: Medical Plan: Continue to monitor (3) Benign prostatic hyperplasia: Comment: Trans urethral resection April [address]23 Dr. Bryant Code(s): N40.0 - Benign prostatic hyperplasia without lower urinary tract symptoms Category: Medical Qualifiers: Lower urinary tract symptom presence: symptoms present Lower urinary tract symptom detail: urinary frequency Qualified Code(s): N40.1 - Benign prostatic hyperplasia with lower urinary tract symptoms; R35.0 - Frequency of micturition Plan: Patient follows up with urology on terazosin and finasteride. PSA requested. (4) Obesity (BMI 30-39.9): Code(s): E66.9 - Obesity, unspecified Category: Medical Plan: Diet and exercise (5) Chronic atrial fibrillation: Code(s): I48.20 - Chronic atrial fibrillation, unspecified Category: Medical Plan: Continue with atenolol and is on anticoagulation. (6) Peripheral vascular disease: Code(s): I73.9 - Peripheral vascular disease, unspecified Category: Medical Plan: When sitting down elevate the legs, exercise, and support stockings patient was advised to decrease amlodipine. (7) Impaired fasting blood sugar: Code(s): R73.01 - Impaired fasting glucose Category: Medical Plan: Decrease the amount of carbohydrate intake, pasta, bread, rice and potatoes are all sugar and that is aside from all the sweet stuff, remember that fruits are good but they are Sweet also. Orders: Orders Comprehensive Met. Panel Today I10 - Essential (primary) hypertension Free T4 (Free Thyroxine) Today I10 - Essential (primary) hypertension Vitamin B12 and Folate Today I10 - Essential (primary) hypertension Hemoglobin A1c Today R73.01 - Impaired fasting glucose Complete Blood Count Auto Diff Today I10 - Essential (primary) hypertension Thyroid Stimulating Hormone Today I10 - Essential (primary) hypertension Lipid Panel Today E78.00 - Pure hypercholesterolemia, unspecified, I10 - Essential (primary) hypertension Medications: Changed From amlodipine 5 mg PO BID 180 tabs 3RF I10 - Essential (primary) hypertension To amlodipine 5 mg PO .QD 90 tabs 3RF I10 - Essential (primary) hypertension
--- OUTSIDE RECORDS SUMMARY | 2024-09-20 14:51 | XMS_ITS ---
[facility] Address [address] [place] [address] Care Team Providers Care Security Assurance Specialist Name Role Phone Po Cathie VALLE Primary Care Provider Puneet Gonzalez Unavailable [phone] REASON FOR VISIT screening,hx polyps,fam hx colon ca PROBLEMS Problem Type ICD Code Onset Dates Problem Status W/U Status Risk SNOMED Code Notes Problem Diverticulosis of colon (K57.30) Active confirmed Diverticulosi s of colon (524175711) Encounters Encounter Location Date Provider Diagnosis [facility] [place] [facility] [address], [place] [id number] 06/01/2023 Puneet Huffman Colon cancer scree ian Z12.11 ; Colon polyp K63.5 ; Diverticulosis of colon K57.30 ; Internal hemorrhoids K64.8 and Family history of colon cancer Z80.0 ASSESSMENTS Encounter Date Diagnosis Assessment Notes Treatment Notes Treatment Clinical Notes 06/01/2023 Colon cancer screening (ICD-10 - Z12.11) 06/01/2023 Colon polyp (ICD-10 - K63.5) 06/01/2023 Diverticulosis of colon (ICD-10 - K57.30) 06/01/2023 Internal hemorrhoids (ICD-10 - K64.8) 06/01/2023 Family history of colon cancer (ICD-10 - Z80.0) PLAN OF TREATMENT No Information
--- OUTSIDE RECORDS SUMMARY | 2024-09-20 14:51 | XMS_ITS | Patient Health Record ---
Author Organization [facility] Address [address] [place] [address] Care Team Providers Care Chili Pepper Grinder Name Role Phone Po Cathie VALLE Primary Care Provider Puneet Gonzalez [phone] ALLERGIES No Known Allergies REASON FOR REFERRAL No Information MEDICATIONS Medication SIG (Take, Route, Frequency, Duration) Notes Start Date End Date Status Eliquis Active Finasteride 5 MG Oral for 90 A ctive Terazosin HCl 10 MG Oral for 90 Active Atenolol 50 MG 1 tablet Oral Once a day Active amLODIPine Besylate 5 MG take 1 tablet b y mouth once daily Oral for 30 Active Haseeb Multivitamin for Men - Orally once a day Active IMMUNIZATIONS Vaccine Route Administration Date Status Comme nts Influenza Unknown 06/12/2017 Administered SOCIAL HISTORY Tobacco Use: Social History Observation Description Date Details (start date - stop date) Former Smoker NA - NA Sex Assigned At : Social History Observation Description Sex Assigned At Unknown Tobacco Use/Smoking Question Answer Notes Patient is a former smoker How long has it been since you last smoked? > 10 years Additional Findings: Tobacco User Pipe smoker Alcohol Screen Question Answer Notes Did you have a drink contain ing alcohol in the past year? Yes How often did you have a dri nk containing alcohol in the past year? Monthly or less (1 point) How often did you have 6 or more drinks on one occasion in the past year? 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.29) Active confirmed 932998868 Problem Diverticulosis of colon (K57.30) Active confirmed Diverticulosi s of colon (724235445) PLAN OF TREATMENT Future Test Test Name Order Date COLONOSCOPY 12/08/2017 COLONOSCOPY 02/24/2023 Insurance Providers Payer Name Payer Address Payer Phone Subscriber Number Group Number Insured Name Patient Relationship to Insured Coverage Start Date Coverage End Date MEDICARE OF [place] [address] [place] [address] [id number] ROSSI HAY Self - patient is the insured MEDEX ATTN CLAIMS [address] [place] [address] [id number] ROSSI HAY Self - patient is the insured MEDICAL (GENERAL) HISTORY Medical History History ICD Code Hypertension Denies CO,DM,CVA,Lung disease,renal dise ase 3 negative colonoscopies wit h Dr. Alvarez---2001, 2006, 2011--just diverticulosis and internal hemorrhoids Left bundle branch block (LBBB), Atrial fib-Dr. Kwon BPH--negative prostate biopsy--scheduled for laser surgery with Dr. Bryant Colonoscopy 01/2018 with removal of a sma ll tubular adenoma Epidural injection for sciatica in 2021 Surgical History Surgery Date(Month/Year) Inguinal hernia repair right 2001 Knee surgery left 2017 Laser prostate surgery 04/20/2023
== END 2024-09-13 14:59 | disposition home or self-care (01) ==
PROVIDERS: PCP Internal Medicine; Visit Provider Internal Medicine
DX: I10 Essential (primary) hypertension (principal); I77.810 Thoracic aortic ectasia; I48.20 Chronic atrial fibrillation, unspecified; I73.9 Peripheral vascular disease, unspecified; N40.1 Benign prostatic hyperplasia with lower urinary tract symptoms; R35.0 Frequency of micturition; E66.9 Obesity, unspecified; R73.01 Impaired fasting glucose

== ENCOUNTER → 2024-09-13 14:09 | Outpatient (BNVA) | payer MEDICARE, SELFPAY | PROVIDERS: PCP Internal Medicine; Visit Provider Internal Medicine | DX: I10 Essential (primary) hypertension (principal); I77.810 Thoracic aortic ectasia; N40.1 Benign prostatic hyperplasia with lower urinary tract symptoms; R35.0 Frequency of micturition; E66.9 Obesity, unspecified; I48.20 Chronic atrial fibrillation, unspecified; I73.9 Peripheral vascular disease, unspecified; R73.01 Impaired fasting glucose | CPT/HCPCS: 96127; 99212 ==

== ENCOUNTER 2024-11-11 10:47 | Emergency (ER) | payer MEDICARE, SELFPAY ==
[2024-11-11 10:50] VITALS: BP 180/87; PULSE 65; RESP 18; TEMP 36.5; O2SAT 98; BMI 31.9
--- NOTE | 2024-11-11 10:52 | ED_ITS ---
HPI - General Adult General Chief complaint: Epistaxis Stated complaint: Nose bleed Time Seen by Provider: 11/11/24 11:03 Source: patient and old records reviewed Mode of arrival: ambulatory Limitations: no limitations History of Present Illness ED Provider: CECILIO LOU narrative: 74 yo male with PMH of PVD, chronic afib on eliquis, HTN, obesity here with c/o L nares nose bleed since 7am. He has no cp/dizziness/dyspnea. He denies trauma or nose picking. He reports this happened a couple of days ago and it resolved. Started again today and went to PCP who noted afib with RVR - he took all of his medications today and persistent epistaxis. Patient has no prior hx of nasal cauterization. He has no headaches. MD complaint: nose bleed Onset (ago): hour(s) (7am today) Location: face Radiation: non-radiation Severity: mild Relieving factors: none Exacerbating factors: none Associated symptoms: denies other symptoms Treatments prior to arrival: none Related Data Previous Rx's ?Medication ?Instructions ?Recorded cyanocobalamin (vitamin B-12) 1,000 mcg PO DAILY #30 caps 12/23/21 1,000 mcg capsule compress.stocking,knee,reg,lrg #12 ea 07/28/22 terazosin 5 mg capsule 5 mg PO BEDTIME 90 days #90 caps 06/16/23 finasteride 5 mg tablet 5 mg PO DAILY 90 days #90 tabs 08/17/23 apixaban 5 mg tablet 5 mg PO BID #60 tabs 01/22/24 amlodipine 5 mg tablet 5 mg PO .QD #90 tabs 09/13/24 atenolol 25 mg tablet 25 mg PO DAILY #90 tabs 11/09/24 losartan 50 mg tablet 50 mg PO DAILY #90 tabs 11/11/24 Allergies Allergy/AdvReac Type Severity Reaction Status Date / Time lisinopril AdvReac Intermediate cough Verified 11/11/24 10:52 Review of Systems 2 Review of Systems: Constitutional : No Fever, No Chills ENT/Mouth : No Ear Pain, No Nasal Congestion, positive nose bleed Eyes: No Eye Pain, No Swelling, No Redness Cardiovascular : No Chest Pain, No SOB Respiratory : No Cough, No Sputum Gastrointestinal : No Nausea, No Vomiting, No Diarrhea Genitourinary : No Dysuria, No Hematuria Musculoskeletal : No joint pain, No Myalgias Skin : No Skin Lesions, No rash Neuro : No Weakness, No Numbness, No headache all other systems reviewed and are negative PMFSH Past Medical History Attestation statement: The following information was validated with the patient. Source: old records reviewed Medical History Screening for colon cancer Screening for prostate cancer Screening for diabetes mellitus Spinal stenosis, lumbar region with neurogenic claudication Claudication of left lower extremity Left hamstring muscle strain Weak urinary stream PAF (paroxysmal atrial fibrillation) LBBB (left bundle branch block) Cataract Vitamin D deficiency Obesity (BMI 30-39.9) Ascending aorta dilation Benign prostatic hyperplasia Benign essential hypertension Surgical History History of prostate surgery History of colonoscopy History of cataract surgery History of surgery H/O meniscectomy of right knee Deficient knowledge of scrotal surgery History of inguinal hernia repair History of arthroscopy of left knee Family History Family History Father Colon cancer Mother No problems noted. Maternal Grandfather Throat cancer Social History Social History Housing: House Are you a primary career center director to a significant other at home: No Do you presently have visiting nurse or other home services: No Alcohol intake: current Alcohol intake frequency: holidays/special occasions only Patient Tobacco Use Status: Former Tobacco user Tobacco use type: Cigarette Smoked in Last 30 Days: No e-Cigarette/Vaping Use: Never Used Second Hand Smoke Exposure: No Use of substances other than those prescribed or required for medical reasons: No Advance Directives: No Advance Directives Information Provided: Yes Current occupational status: employed 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 Oriented X3. No acute distress. Eyes: Pupils equal, round and reactive to light. ENT: Pharynx normal. no blood in mouth, L nares wadded gauze no active bleeding but clot noted, no blood in posterior throat Neck: irregular in 60s inspection. Neck supple. CVS: Normal heart rate and rhythm. Pulses normal. Respiratory: No respiratory distress. Breath sounds normal. Abdomen: Soft and nontender. Skin: Skin warm and dry. Normal skin color. Normal skin turgor. Extremities: No lower extremity edema. No calf ttp Neuro: Oriented X 3. No motor deficit. No sensory deficit. CN2-12 intact Course Course Course Narrative: Patient complains of nosebleed off and on for 3 days, he regularly takes Eliquis but did not take this morning's dose, he has atrial fibrillation Called primary doctor po who said go to the ER Labs ordered, this is rapid medical exam done in triage pending full exam evaluation treatment and disposition by ER provider Medications Administered Discontinued Medications Generic Name Dose Route Start Last Admin Trade Name Ankushq PRN Reason Stop Dose Admin Lidocaine HCl 15 ml 11/11/24 12:52 11/11/24 12:57 Lidocaine Hcl Viscous 2 % 15 Ml Solution MUCOUS MEM 11/11/24 12:53 15 ml ONCE ONE Administration Oxymetazoline HCl 2 spray 11/11/24 11:05 11/11/24 11:22 Oxymetazoline Hcl 0.05 % Nasal 15 Ml [place] NOSTRIL-B 11/11/24 11:06 2 spray ONCE ONE Administration Silver Nitrate 1 appl 11/11/24 11:05 11/11/24 12:11 Silver Nitrate Applicator Stick..Ea. TOPICAL 11/11/24 11:06 1 appl ONCE ONE Administration Tranexamic Acid 500 mg 11/11/24 11:05 11/11/24 11:20 Tranexamic Acid 1,000 Mg/10 Ml Vial INTRANASAL 11/11/24 11:06 500 mg ONCE ONE Administration Procedures Epistaxis Control Time Out Performed: Yes Nostril: Yes left Nose prepped with: Yes oxymetazoline Direct inspection: Yes anterior source identified Direct inspection method: Yes nasal speculum Clots removed by: Yes suction Epistaxis treatment: Yes TXA soaked gauze and Yes silver nitrate cautery Results of treatment: Yes bleeding controlled Complications: Yes none Medical Decision Making Medical Decision Making MDM Narrative: 74 yo male wtih PMH of PVD, chronic afib on eliquis, HTN, obesity here with c/o L nares bleed no trauma did not take his eliquis yet today at this time initial application of afrin/tranexamic acid. Will attempt cautery if possible vs packing. Check basic labs. Monitor he is not in afib with RVR right now Differential Diagnosis Differential Diagnoses: The differential diagnosis associated with the presentation includes epistaxis, anemia Admission/Observation Consideration of admission/observation: Escalation of care including admission/observation considered bleeding controlled stable for DC Lab Data MDM Lab Attestation statement: I reviewed the patient's lab results. 11/11/24 11:35 11/11/24 11:36 Labs: Lab Results 11/11/24 11/11/24 Range/Units 11:35 11:36 WBC 6.3 (4.8-10.8) X10*3/uL RBC 4.88 (4.60-5.80) X10*6/uL Hgb 15.9 (14.0-18.0) g/dl Hct 46.9 (42.0-52.0) % MCV 96.1 (80.0-98.0) fL MCH 32.6 (27.0-33.0) pg MCHC 33.9 (31.0-36.0) g/dl RDW 13.2 (11.0-16.0) % Plt Count 262 (160-400) X10*3/uL MPV 8.8 L (9.4-12.4) fL Immature Gran % (Auto) 0.2 (0.0-0.4) % Neut % (Auto) 58.7 (45-73) % Lymph % (Auto) 25.2 (20-40) % [place] % (Auto) 13.8 H (2-11) % Eos % (Auto) 1.1 (0-4) % Baso % (Auto) 1.0 (0-2) % Lymph # (Auto) 1.6 (1.2-4.9) X10*3/uL [place] # (Auto) 0.9 (0.1-1.2) X10*3/uL Eos # (Auto) 0.1 (0.0-0.4) X10*3/uL Baso # (Auto) 0.1 (0.0-0.2) X10*3/uL Abs Immat Gran (auto) 0.01 (0.00-0.03) X10*3/uL Absolute Neuts (auto) 3.7 (2.0-8.3) x10*3/uL Absolute Nucleated RBC 0.000 (0.0-0.012) X10*3/uL Nucleated RBC % (auto) 0.0 (0.0-0.2) /100WBC PT 15.2 H (10.9-12.4) SEC INR 1.3 H (0.9-1.1) Sodium 142 (135-145) mmol/L Potassium 4.2 (3.3-5.1) mmol/L Chloride 111 H (96-108) mmol/L Carbon Dioxide 22 (22-29) mmol/L Anion Gap 13 (12-20) BUN 16 (9-16) mg/dL Creatinine 0.75 (0.5-1.4) mg/dL Estim Creat Clear Calc 107.5 Estimated GFR > 60 Random Glucose 103 (60-115) mg/dL Calcium 8.7 (8.4-10.2) mg/dL Independent Historian Clinical information obtained from an independent historian. History obtained from or confirmed by: Spouse External Record Review External record reviewed: Outpatient record Discharge Plan Discharge Clinical Impression: Epistaxis Patient Disposition: Home, Self-Care Instructions: Nosebleed (ED) Additional Instructions: do not blow your nose for 5 days return for bleeding. if it starts bleeding apply gauze and then pinch on the blue tongs. you can resume your eliquis tomorrow morning, would hold a dose tonight. follow up with primary care doctor as needed. if bleeding starts again we will likely need to pack the area with a nasal packing this needs to be done in the ED Prescriptions: No Action terazosin 5 mg capsule 5 mg PO BEDTIME 90 Days Qty: 90 1RF finasteride 5 mg tablet 5 mg PO DAILY 90 Days Qty: 90 1RF apixaban 5 mg tablet 5 mg PO BID Qty: 60 10RF atenolol 25 mg tablet 25 mg PO DAILY Qty: 90 0RF losartan 50 mg tablet 50 mg PO DAILY Qty: 90 0RF cyanocobalamin (vitamin B-12) 1,000 mcg capsule 1,000 mcg PO DAILY Qty: 30 5RF (DME) compress.stocking,knee,reg,lrg Misc See Rx Instructions .Route Qty: 12 0RF Rx Instructions: As directed 20-30 mm HG amlodipine 5 mg tablet 5 mg PO .QD Qty: 90 3RF Print Language: Estonian
[2024-11-11] MEDS: Tranexamic Acid 1,000 MG/10 ML VIAL 500 MG INTRANASAL (11:20)
[2024-11-11] MEDS: Oxymetazoline HCl 0.05 % Nasal 15 ML SPRAY 2 SPRAY NOSTRIL-B (11:22)
[2024-11-11 11:42] LABS: MANUAL DIFF FLAG NO
[2024-11-11 11:43] LABS: Basophils Absolute Auto 0.1 X10*3/uL (0.0-0.2); Eosinophils Absolute Auto 0.1 X10*3/uL (0.0-0.4); Eosinophils Percent Auto 1.1 % (0-4); Hematocrit 46.9 % (42.0-52.0); Hemoglobin 15.9 g/dl (14.0-18.0); Imm Gran Abs Auto 0.01 X10*3/uL (0.00-0.03); Imm Gran Pct Auto 0.2 % (0.0-0.4); Lymphocytes Absolute Auto 1.6 X10*3/uL (1.2-4.9); Lymphocytes Percent Auto 25.2 % (20-40); Mean Corpuscular HGB Conc 33.9 g/dl (31.0-36.0); Mean Corpuscular Hemoglobin 32.6 pg (27.0-33.0); Mean Corpuscular Volume 96.1 fL (80.0-98.0); Mean Platelet Volume 8.8 fL (9.4-12.4); Monocytes Absolute Auto 0.9 X10*3/uL (0.1-1.2); Monocytes Percent Auto 13.8 % (2-11); Neutrophils Absolute Auto 3.7 x10*3/uL (2.0-8.3); Neutrophils Percent Auto 58.7 % (45-73); Platelet Count 262 X10*3/uL (160-400); Red Blood Count 4.88 X10*6/uL (4.60-5.80); Red Cell Distribution Width 13.2 % (11.0-16.0); White Blood Count 6.3 X10*3/uL (4.8-10.8)
[2024-11-11 11:47] LABS: INTERNATIONAL NORM RATIO 1.3 (0.9-1.1); Prothrombin Time 15.2 SEC (10.9-12.4)
[2024-11-11 11:59] LABS: Anion Gap 13 (12-20); Blood Urea Nitrogen 16 mg/dL (9-16); Calcium 8.7 mg/dL (8.4-10.2); Carbon Dioxide 22 mmol/L (22-29); Chloride 111 mmol/L (96-108); Creatinine Clr Calc Pharmacy 107.5; Estimated Glomerular Filt Rate > 60; Glucose Random 103 mg/dL (60-115); Potassium 4.2 mmol/L (3.3-5.1); Sodium 142 mmol/L (135-145)
[2024-11-11] MEDS: Silver Nitrate Applicator STICK..EA. 1 APPL TOPICAL (12:11)
[2024-11-11] MEDS: Lidocaine HCl Viscous 2 % 15 ML SOLUTION MUCOUS MEM (12:57)
[2024-11-11 13:42] VITALS: BP 147/69; PULSE 50; RESP 18; TEMP 36.7; O2SAT 98
== END 2024-11-11 13:43 | disposition home or self-care (01) ==
PROVIDERS: Physician Assistant Medical; Emergency Provider Emergency Medicine; PCP Internal Medicine
DX: R04.0 Epistaxis (principal); I48.91 Unspecified atrial fibrillation; Z79.01 Long term (current) use of anticoagulants; Z87.891 Personal history of nicotine dependence; Z79.899 Other long term (current) drug therapy
CPT/HCPCS: 30901; 36415; 80048; 85025; 85610; 99284

== ENCOUNTER 2025-01-02 08:57 | Outpatient (AMB) | payer MEDICARE, SELFPAY ==
--- NOTE | 2025-01-02 09:02 | A.OFFVIS_ITS ---
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 He is here for follow-up today. No chest pain or shortness of breath. He has no symptoms. He has been on amlodipine for long time and has some lower extremity edema which he has noticed recently. He also got diagnosed with BPH and has been started on terazosin which were increased to 10 mg. Was started on Eliquis for atrial fibrillation. Blood pressure control is good. He is denying any CP or SOB. No bleeding concerns. ECG is showing Afib and he has intermittent LBBB. 07/06/23: He is here for follow-up. He has been exercising and walking up to 2 miles per day. Denying any chest discomfort shortness of breath. No dizziness or lightheadedness. He bought a blood pressure cuff and has been monitoring his heart rate at home. He has documented heart rates as low as 37 and low 40s. He is currently 54 beats per minute. He is taking atenolol 50 mg daily. His blood pressure also is 100/68. He is denying any symptoms at this point. Echocardiography report was discussed in detail with the patient. 12/28/2023: He returns for follow-up. He has been doing well. He is started walking and is walking up to 3 miles per day. No chest discomfort shortness of breath. No dizziness or lightheadedness. Heart rate 55 beats per minute in atrial fibrillation. He is taking atenolol at a lower dose of 25 mg daily. He is complaining of some lower extremity edema and has been using compression stockings but is saying that they do not help. He is on amlodipine 10 mg daily which is likely cause for the peripheral edema. No symptoms/signs of heart failure. 01/02/25: He is here for follow-up. He has no dizziness or lightheadedness. Continues to be in atrial fibrillation with slow ventricular response 52 beats per minute on EKG. He continues to have lower extremity edema affecting the left leg only. His amlodipine dose was cut to 5 mg but he continues to get the edema. On examination he clearly has varicose veins. He also gets some dull ache in the leg. No chest discomfort shortness of breath. Blood pressure well controlled currently. [facility] Medical History Screening for colon cancer Screening for prostate cancer Screening for diabetes mellitus Spinal stenosis, lumbar region with neurogenic claudication Claudication of left lower extremity Left hamstring muscle strain Weak urinary stream PAF (paroxysmal atrial fibrillation) LBBB (left bundle branch block) Cataract Vitamin D deficiency Obesity (BMI 30-39.9) Ascending aorta dilation Benign prostatic hyperplasia Benign essential hypertension Surgical History History of prostate surgery History of colonoscopy History of cataract surgery History of surgery H/O meniscectomy of right knee Deficient knowledge of scrotal surgery History of inguinal hernia repair History of arthroscopy of left knee Family History Father Colon cancer Mother No problems noted. 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 Cognitive needs: No Hearing needs: No Vision needs: Yes Review of Systems Const Denies chills, Denies fatigue, Denies fever(s), Denies frequent falls, Denies weakness, Denies weight gain and Denies weight loss ENT Denies dizziness Card Denies chest pain, Denies leg edema, Denies lightheadedness, Denies palpitations, Denies dyspnea and Denies dyspnea on exertion Resp Denies cough, Denies dyspnea and Denies dyspnea on exertion GI Denies hematochezia Musc Denies abnormal gait, Denies muscle weakness, Denies numbness, Denies radiating pain into limb and Denies tingling Neuro Denies abnormal gait, Denies dizziness, Denies frequent falls, Denies numbness, Denies tingling and Denies weakness Endo Denies fatigue and Denies palpitations Physical Exam Vital Signs: Last Vital Signs Pulse 52 01/02/25 09:04 BP 130/72 01/02/25 09:04 BMI result Body Mass Index 31.7 GENERAL APPEARANCE: in no acute distress, pleasant. NECK: no carotid bruit, no jugular venous distention. SKIN: no suspicious lesions, warm and dry. HEART: Systolic murmur aortic area with preserved 2nd heart sound, bradycardic. Irregularly irregular rhythm. LUNGS: clear to auscultation bilaterally. ABDOMEN: soft, nontender. EXTREMITIES: No significant edema. Left leg varicose veins. PERIPHERAL PULSES: equal. NEUROLOGIC: No gross deficits, AAO X 3 Office Procedures EKG Details: AFib with slow ventricular response 52 beats per minute, left posterior fascicular block, inferolateral ST changes likely due to left ventricular hypertrophy, QTC 440 milliseconds. [id number], Complete Assessment & Plan Assessment & Plan (1) Mild aortic stenosis: Comment: June 2023 2.2 cm Code(s): I35.0 - Nonrheumatic aortic (valve) stenosis Category: Medical (2) Benign essential hypertension: Code(s): I10 - Essential (primary) hypertension Category: Medical (3) Chronic atrial fibrillation: Code(s): I48.20 - Chronic atrial fibrillation, unspecified Category: Medical (4) Peripheral edema: Code(s): R60.0 - Localized edema Category: Medical Plan Pleasant 74-year-old gentleman who is presenting for follow-up. He has permanent atrial fibrillation with slow ventricular response. Heart rate continues to be in 50s as before but he has no symptoms. Same medications for now. On Eliquis for anticoagulation. Blood pressure is well controlled currently. He has peripheral edema affecting the left lower extremity. He clearly has varicose veins on that like. We will do venous reflux study and referred to vascular surgery if he has significant reflux. Would continue same medications for now. If venous reflux study does not explain it then we will get him off the amlodipine and titrate losartan. Thank you for allowing me to participate in the care of your patient. Please feel free to contact me if you have any questions. Orders: Orders US venous insuf bilat Today R60.0 - Localized edema Coding Level of Care Code Est Pt Level 4 (07865) Diagnoses Mild aortic stenosis I35.0 Benign essential hypertension I10 Chronic atrial fibrillation I48.20 Peripheral edema R60.0 CPT Codes EKG - CPT: 07231-[id number], Complete ([id number])
[2025-01-02 09:04] VITALS: BP 130/72; PULSE 52; BMI 31.7
== END 2025-01-02 09:23 | disposition home or self-care (01) ==
PROVIDERS: PCP Internal Medicine; Visit Provider Internal Medicine Cardiovascular Disease
DX: I35.0 Nonrheumatic aortic (valve) stenosis (principal); I10 Essential (primary) hypertension; I48.20 Chronic atrial fibrillation, unspecified; R60.0 Localized edema
CPT/HCPCS: 93010; 99214

== ENCOUNTER → 2025-01-02 08:57 | Outpatient (BNVA) | payer MEDICARE, SELFPAY | PROVIDERS: PCP Internal Medicine; Visit Provider Internal Medicine Cardiovascular Disease | DX: I35.0 Nonrheumatic aortic (valve) stenosis (principal); I10 Essential (primary) hypertension; I48.20 Chronic atrial fibrillation, unspecified; R60.0 Localized edema | CPT/HCPCS: 93005; 99212 ==

== ENCOUNTER 2025-01-24 13:41 | Outpatient (AMB) | payer MEDICARE, SELFPAY ==
[2025-01-24 13:58] VITALS: BP 132/74; PULSE 54; O2SAT 94; BMI 31.3
--- NOTE | 2025-01-24 13:58 | A.OFFPC_ITS ---
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: No Accompanied by: Self / Same As Patient Allergies lisinopril Adverse Reaction (Intermediate, Verified 01/24/25 13:59) cough Tobacco use date assessed: 01/24/25 Fall risk assessment: No Falls in past year Last assessed Fall Risk: 01/24/25 Dental Screening Dental Screen Date: 01/24/25 Did you have a dental visit in the last 12 months?: No Did you have a dental problem in the last 6 months where you did not have access to dental care?: No Was dental information given to patient?: No PFSH Medical History Screening for colon cancer Screening for prostate cancer Screening for diabetes mellitus Spinal stenosis, lumbar region with neurogenic claudication Claudication of left lower extremity Left hamstring muscle strain Weak urinary stream PAF (paroxysmal atrial fibrillation) LBBB (left bundle branch block) Cataract Vitamin D deficiency Obesity (BMI 30-39.9) Ascending aorta dilation Benign prostatic hyperplasia Benign essential hypertension Surgical History History of prostate surgery History of colonoscopy History of cataract surgery History of surgery H/O meniscectomy of right knee Deficient knowledge of scrotal surgery History of inguinal hernia repair History of arthroscopy of left knee Family History Father Colon cancer Mother No problems noted. 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 1. Little interest or pleasure in doing things: not at all 2. Feeling down, depressed, or hopeless: not at all 3. Trouble falling or staying asleep, or sleeping too much: not at all 4. Feeling tired or having little energy: not at all 5. Poor appetite or overeating: not at all 6. Feeling bad about yourself - or that you are a failure or have let yourself or your family down: not at all 7. Trouble concentrating on things, such as reading the newspaper or watching television: not at all 8. Moving or speaking so slowly that other people could have noticed. Or the opposite - being so fidgety or restless that you have been moving around a lot more than usual: not at all 9. Thoughts that you would be better off or of hurting yourself in some way: not at all Total score: 0 Depression Screening Interpretation: Negative Depression Screening Done: Yes 02136 - PHQ-9 Billing: Yes Source: Developed by Drs. Puneet Hardin, Janette Butt, Shay Castillo and colleagues, with an educational zeina from [employer]. Thrive Questionnaire Date Thrive assessed: 01/24/25 I am a: Patient What is your living situation today?: I have a steady place to live Within the past 12 months, did the food you bought not last and you didn't have the money to get more?: Never true Within the past 12 months, did you worry whether your food would run out before you got money to buy more?: Never true Do you have trouble paying for medicines?: No Do you have trouble getting transportation to medical appointments?: No Do you have trouble paying your heating and electricity bill?: No Do you have trouble taking care of your child, family member or friend?: No Do you have trouble with day-to-day activities such as bathing, preparing meals, shopping, managing finances, etc.?: No Are you currently unemployed and looking for a job?: No Are you interested in more education?: No Please select the resources that you would like help with: None Currently or been in a relationship where the following occur: No concerns reported THRIVE Score: 0 AUDIT C Alcohol Use Questionnaire (AUDIT-C) 1. How often do you have a drink containing alcohol?: Monthly or less 2. How many drinks containing alcohol do you have on a typical day when you are drinking?: 1 or 2 3. How often do you have six or more drinks on one occasion?: Never Total Score: 1 Score Reviewed/Action Taken: No MARIELA-7 AMB Questionnaire MARIELA-7 Date MARIELA - 7 assessed: 01/24/25 Feeling nervous, anxious, or on edge: 0 = Not at all Not being able to stop or control worryin = Not at all Worrying too much about different things: 0 = Not at all Trouble relaxin = Not at all Being so restless that it is hard to sit still: 0 = Not at all Becoming easily annoyed or irritable: 0 = Not at all Feeling afraid as if something awful might happen: 0 = Not at all Total MARIELA-7 score (0-4 normal; 5-9 mild; 10-14 moderate; 15-21 severe): 0 Source: Developed by Drs. Puneet Hardin, Janette Butt, Shay Castillo and colleagues, with an educational zeina from [employer]. Physical exam (Primary Care) Vital Signs: Last Vital Signs Pulse 54 01/24/25 13:58 BP 132/74 01/24/25 13:58 Pulse Ox 94 01/24/25 13:58 Oxygen Delivery Method Room Air 01/24/25 13:58 BMI result Body Mass Index 31.3 Tobacco/Smoking Status: Tobacco use Status Tobacco use date assessed 01/24/25 01/24/25 14:07 Patient Tobacco Use Status Former Tobacco user 01/24/25 14:07 Tobacco use type Cigarette 01/24/25 14:07 e-Cigarette/Vaping Use Never Used 01/24/25 14:07 PHQ-9: PHQ-9 Score PHQ-9: Total score 0 01/24/25 14:07 Depression Screening Interpretation: Negative Thrive Assessment: Date of Thrive Assessment Date Thrive assessed 01/24/25 01/24/25 14:07 Currently or been in a relationship where the following occur: No concerns reported Const General: alert; No acute distress Eyes Conjunctivae: conjunctivae normal Resp Auscultation: clear to auscultation bilaterally Cardio Rate: regular rate Rhythm: regular rhythm GI Inspection: Yes normal to inspection Extrem General: Yes normal to inspection and No edema Coding Level of Care Code Est Pt Level 4 (71069) Complex EM visit Add On G2211 Diagnoses Benign essential hypertension I10 Benign prostatic hyperplasia with urinary frequency N40.1; R35.0 Lower urinary tract symptom presence: symptoms present Lower urinary tract symptom detail: urinary frequency Ascending aorta dilation I77.810 Obesity (BMI 30-39.9) E66.9 Chronic atrial fibrillation I48.20 Mild aortic stenosis I35.0 Impaired fasting blood sugar R73.01 Swelling of lower extremity M79.89 Additional Codes PHQ-9 - 00886 - PHQ-9 Billing: Yes ([id number]) Assessment & Plan Assessment & Plan (1) Benign essential hypertension: Code(s): I10 - Essential (primary) hypertension Category: Medical Plan: Continue with blood pressure medication. Decrease salt intake and exercise presently on atenolol 25 mg once a day and amlodipine 5 mg once a day losartan 50 mg once a day (2) Benign prostatic hyperplasia: Comment: Trans urethral resection April [address]23 Dr. Bryant Code(s): N40.0 - Benign prostatic hyperplasia without lower urinary tract symptoms Category: Medical Qualifiers: Lower urinary tract symptom presence: symptoms present Lower urinary tract symptom detail: urinary frequency Qualified Code(s): N40.1 - Benign prostatic hyperplasia with lower urinary tract symptoms; R35.0 - Frequency of micturition Plan: Continue with terazosin and finasteride (3) Ascending aorta dilation: Comment: June 2023 4.1 cm Code(s): I77.810 - Thoracic aortic ectasia Category: Medical Plan: Continuing to monitor this will request for an echocardiogram (4) Obesity (BMI 30-39.9): Code(s): E66.9 - Obesity, unspecified Category: Medical Plan: Diet and exercise (5) Chronic atrial fibrillation: Code(s): I48.20 - Chronic atrial fibrillation, unspecified Category: Medical Plan: Continue with anticoagulation with Eliquis and continue with atenolol (6) Mild aortic stenosis: Comment: June 2023 2.2 cm Code(s): I35.0 - Nonrheumatic aortic (valve) stenosis Category: Medical Plan: Echocardiogram to request to monitor for this. (7) Impaired fasting blood sugar: Code(s): R73.01 - Impaired fasting glucose Category: Medical Plan: Decrease the amount of carbohydrate intake, pasta, bread, rice and potatoes are all sugar and that is aside from all the sweet stuff, remember that fruits are good but they are Sweet also. (8) Swelling of lower extremity: Code(s): M79.89 - Other specified soft tissue disorders Category: Medical Plan: Amlodipine dose decreased and Cardiology requested for venous studies and referred to vascular surgeon. If negative advised to take off amlodipine. Plan History of Present Illness The patient is a 74-year-old male presenting for follow-up regarding multiple chronic conditions, including hypertension, benign prostatic hyperplasia (BPH), lumbar spinal stenosis, atrial fibrillation, and peripheral vascular disease. He has a known history of ascending aortic aneurysm, which was last measured at 4.1 cm in June 2023. The patient has glucose intolerance and a known history of obesity. He was last evaluated by cardiology in December 2023. The patient reports experiencing lower extremity swelling despite a decrease in amlodipine dosage, raising concerns for potential venous reflux. The patient was advised to undergo venous reflux studies and has been referred to a vascular surgeon. Any negative results on these studies could lead to a reconsideration of his amlodipine regimen. The patient also has a past history of significant epistaxis that required an emergency room visit in October, where nasal cauterization was attempted with subsequent success in controlling the bleeding. For management of his hypertension, the patient is currently on atenolol 25 mg daily and losartan 50 mg daily, in addition to amlodipine 5 mg daily. He is also on anticoagulation therapy with Eliquis due to atrial fibrillation. The recent bloodwork from November 11, 2022, indicated normal renal function, electrolytes, and blood counts, with a blood glucose level of 103 mg/dL and LDL cholesterol of 69 mg/dL. Health Maintenance - Recent cholesterol test in March 2023: LDL 69 mg/dL - Last colonoscopy in May 2023 - Blood glucose of 103 mg/dL as of November 11, 2022 Social History - Reports maintaining an active lifestyle, including weight loss and regular exercise. Review of Systems - Cardiovascular: Reports swelling in the lower extremities. - Genitourinary: No reports during the conversation. - Endocrine: Reports glucose intolerance. - Musculoskeletal: Reports lumbar spinal stenosis. - Vascular: Reports peripheral vascular disease with concerns about venous reflux. - Hematologic: Reports past epistaxis. Physical Exam Results - Labs: Normal electrolytes, normal renal function, normal blood count, blood glucose 103 mg/dL (November 11, 2022). - Tests: LDL cholesterol 69 mg/dL (March 2023), Ascending Aortic Aneurysm measurement 4.1 cm (June 2023) Plan The patient will continue their antihypertensive regimen with atenolol, losartan, and a reduced dose of amlodipine, pending results from venous studies. Regular follow-ups with cardiology are part of ongoing management for atrial fibrillation and monitoring of the ascending aortic aneurysm. Eliquis anticoagulation will be maintained, with routine checks on renal function. The patient is encouraged to persist with lifestyle modifications aimed at weight management and controlling blood glucose levels. An echocardiogram will be scheduled to assess the status of the aortic aneurysm. Patient was informed and verbally consented to the use of an ambient scribe for clinic note documentation during this visit. Discussion Notes I discussed with the patient the necessity of continuing the current treatment regimen for hypertension, atrial fibrillation, and peripheral vascular disease. We reviewed the need for a venous reflux study to assess lower extremity swelling and potential venous incompetence, which could influence medication adjustments. The importance of ongoing anticoagulation therapy with Eliquis was reiterated, particularly in light of the patient's atrial fibrillation. An echocardiogram is planned to evaluate the ascending aortic aneurysm for any change requiring further intervention. The discussion included lifestyle and dietary modifications required to manage glucose intolerance. The patient is advised to adequately hydrate, maintain regular activity levels, and take precautionary measures, such as using a humidifier or nasal saline sprays during dry seasons to prevent epistaxis recurrence. Patient Instructions - Continue taking your antihypertensive medications as currently prescribed. - Attend scheduled echocardiogram and follow up with cardiology. - Complete the venous reflux study as advised and consult with the vascular surgeon. - Remain on Eliquis and ensure regular kidney function testing as part of anticoagulation management. - Engage in lifestyle modifications to support glucose control and weight management. - Maintain hydration and remain active; consider using a humidifier or saline nasal spray to prevent nosebleeds during dry seasons. - Schedule and attend all recommended follow-ups with your healthcare providers. Orders: Orders Prostate Specific Antigen Today R33.9 - Retention of urine, unspecified CA echo transthoracic complete Today I77.810 - Thoracic aortic ectasia
--- OUTSIDE RECORDS SUMMARY | 2025-01-24 16:47 | XMS_ITS | Patient Health Record ---
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 Name Role Phone Po Cathie VALLE Primary Care Provider Puneet Gonzalez [phone] Allergies No Known Allergies Reason For Referral No Information Medications Medication SIG (Take, Route, Frequency, Duration) Notes [...] Men - Orally once a day Active Immunizations Vaccine Route Administration Date Status Comme nts Influenza Unknown 06/12/2017 Administered Social History Tobacco Use: Social History Observation Description Date Details (start date - stop date) Former Smoker NA - NA Tobacco Use/Smoking Question Answer Notes Patient is [...] Never (0 point) Points 1 Interpretation Negative Section Notes: Smoked a pipe over 50 years ago; no sig alcohol Smoked a pipe over 50 years ago; no sig alcohol Problems Problem Type SNOMED Code ICD Code Onset Dates Problem Status W/U Status Risk Notes Problem 392083285 Encounter for screening for malignant neoplasm of colon (Z12.11) Active confirmed Problem 891284466 History of adenomatous polyp of colon (Z86.010) Active confirmed Problem 353344422 Family history o f colon cancer (Z80.0) Active confirmed Problem Diverticulosis of colon (026347800) Diverticulosis of colon (K57.30) Active confirmed Problem 546485074 HX: long-term anticoagulant use (Z92.29) Active confirmed Plan Of Treatment Future Test Test Name Order Date COLONOSCOPY 12/08/2017 COLONOSCOPY 02/24/2023 Insurance Providers Payer Name Payer Address Payer Phone Subscriber Number Group Number Insured Name Patient Relationship to Insured Coverage Start Date Coverage End Date MEDICARE OF [place] [address] [place] [address] [id number] ROSSI HAY Self - patient is the insured [employer] ATT[employer] CLAIMS [address] [place] [phone] [id number] ROSSI HAY Self - patient is the insured Medical (General) History Medical History History ICD Code Hypertension Denies MT,DM,CVA,Lung disease,renal dise ase 3 negative colonoscopies wit [...]
== END 2025-01-24 14:36 | disposition home or self-care (01) ==
LOC: HO.HMCH 13:41
PROVIDERS: PCP Internal Medicine; Visit Provider Internal Medicine
DX: I77.810 Thoracic aortic ectasia (principal); I48.20 Chronic atrial fibrillation, unspecified; I10 Essential (primary) hypertension; Z68.31 Body mass index [BMI] 31.0-31.9, adult; E66.9 Obesity, unspecified; N40.1 Benign prostatic hyperplasia with lower urinary tract symptoms; R35.0 Frequency of micturition; I35.0 Nonrheumatic aortic (valve) stenosis; R73.01 Impaired fasting glucose; M79.89 Other specified soft tissue disorders

== ENCOUNTER → 2025-01-24 13:41 | Outpatient (BNVA) | payer MEDICARE, SELFPAY | PROVIDERS: PCP Internal Medicine; Visit Provider Internal Medicine | DX: I10 Essential (primary) hypertension (principal); N40.1 Benign prostatic hyperplasia with lower urinary tract symptoms; R35.0 Frequency of micturition; I77.810 Thoracic aortic ectasia; E66.9 Obesity, unspecified; I48.20 Chronic atrial fibrillation, unspecified; I35.0 Nonrheumatic aortic (valve) stenosis; R73.01 Impaired fasting glucose; M79.89 Other specified soft tissue disorders | CPT/HCPCS: 96127; 99212 ==

== ENCOUNTER 2025-02-06 10:10 | Outpatient (REF) | payer MEDICARE, SELFPAY ==
--- NOTE | ~2025-02-06 | US_ITS ---
EXAMINATION: US LOWER EXTREMITY VENOUS (REFLUX EXAM), BILATERAL CLINICAL INFORMATION: Varices. Edema. COMPARISON: Prior DVT ultrasound left lower extremity demonstrated no acute DVT. TECHNIQUE: Color flow triplex imaging and compression Doppler was performed to evaluate both the deep and the superficial systems bilaterally. To evaluate the superficial system, the examination was performed in the upright position. Color-flow Doppler ultrasound and compression ultrasound were utilized. In addition, maneuvers were utilized to demonstrate reflux. FINDINGS: 1. DEEP VENOUS ULTRASOUND OF THE RIGHT LOWER EXTREMITY: Common Femoral Vein: Compressible, normal respiratory variation and augmented flow. Femoral Vein: Compressible, normal color flow and augmentation. Popliteal Vein: Compressible, normal augmentation. Deep Reflux: There is no evidence of reflux in the deep system in either the common femoral vein, superficial femoral or the popliteal vein. There is no evidence of a Shields's cyst. 2. SUPERFICIAL ULTRASOUND WITH DOPPLER OF RIGHT LOWER EXTREMITY: GREAT SAPHENOUS VEIN: Saphenofemoral Junction: 0.5 cm; Reflux: 0 ms Proximal Thigh: 0.4 cm; Reflux: 0 ms Mid Thigh: 0.4 cm; Reflux: 0 ms Distal Thigh: 0.2 cm; Reflux: 0 ms At Knee: 0.2 cm; Reflux: 0 ms Proximal Calf: 0.3 cm; Reflux: 1872 ms Mid Calf: 0.3 cm; Reflux: 0 ms Distal Calf: 0.3 cm; Reflux: 0 ms DUPLICATED MEDIAL GREAT SAPHENOUS VEIN: Diameter: None imaged Reflux: NA DUPLICATED LATERAL GREAT SAPHENOUS VEIN: Diameter: 0.3 cm. Reflux: NA SMALL SAPHENOUS VEIN: Saphenopopliteal Junction: 0.1 cm; Reflux: 0 ms Proximal: 0.2 cm; Reflux: 0 ms Distal: 0.1 cm; Reflux: 0 ms VEIN OF GIACOMINI: Size: 0.2 cm. Reflux: NA PERFORATORS: Location: The heel, mid thigh and mid to distal calf. Size: 0.2-0.3 cm. Reflux: 1800 ms at the heel area VARICOSITIES: Location: Mid calf. Size: 2.3 cm. Reflux: NA 3. DEEP VENOUS ULTRASOUND OF THE LEFT LOWER EXTREMITY: Common Femoral Vein: Compressible, normal respiratory variation and augmented flow. Femoral Vein: Compressible, normal color flow and augmentation. Popliteal Vein: Compressible, normal augmentation. Deep Reflux: 1092 ms reflux in the mid femoral vein segment. There is no evidence of a Shields's cyst. 4. SUPERFICIAL ULTRASOUND WITH DOPPLER OF LEFT LOWER EXTREMITY: GREAT SAPHENOUS VEIN: Saphenofemoral Junction: 0.8 cm; Reflux: 0 ms Proximal Thigh: 0.3 cm; Reflux: 0 ms Mid Thigh: 0.3 cm; Reflux: 0 ms Distal Thigh: 0.4 cm; Reflux: 2900 ms At Knee: 0.2 cm; Reflux: 2696 ms Proximal Calf: 0.3 cm; Reflux: 0 ms Mid Calf: 0.3 cm; Reflux: 0 ms Distal Calf: 0.3 cm; Reflux: 2928 ms DUPLICATED MEDIAL GREAT SAPHENOUS VEIN: Diameter: None imaged Reflux: NA DUPLICATED LATERAL GREAT SAPHENOUS VEIN: Diameter: 0.5 cm. Reflux: 2720 ms. SMALL SAPHENOUS VEIN: Saphenopopliteal Junction: 0.2 cm; Reflux: 0 ms Proximal: 0.2 cm; Reflux: 0 ms Distal: 0.2 cm; Reflux: 1072 ms VEIN OF GIACOMINI: Size: 0.3 cm. Reflux: NA PERFORATORS: Location: Through the calf. Size: 0.2-0.3 cm. Reflux: NA VARICOSITIES: Location: Proximal thigh, at the knee and proximal calf. Size: 0.3-0.4 cm. Reflux: 2928 ms throughout the varices. US/US venous insuf bilat IMPRESSION: Right: Venous insufficiency, great saphenous vein below the knee. Perforators at the heel with reflux. Varices without reflux. Left: Venous insufficiency, great saphenous vein from above the knee to the ankle. Venous insufficiency lateral segment superficial femoral vein. Venous insufficiency, small saphenous vein distal calf. Varices with reflux through the thigh to the proximal calf. Venous insufficiency, femoral vein, mid segment. Electronically signed by: Nico Benito MD 02/08/2025 01:00 PM EDT
[2025-02-06 11:53] LABS: MANUAL DIFF FLAG NO
[2025-02-06 12:19] LABS: Basophils Absolute Auto 0.1 X10*3/uL (0.0-0.2); Eosinophils Absolute Auto 0.1 X10*3/uL (0.0-0.4); Eosinophils Percent Auto 1.2 % (0-4); Hematocrit 48.9 % (42.0-52.0); Hemoglobin 16.3 g/dl (14.0-18.0); Imm Gran Abs Auto 0.02 X10*3/uL (0.00-0.03); Imm Gran Pct Auto 0.3 % (0.0-0.4); Lymphocytes Absolute Auto 1.2 X10*3/uL (1.2-4.9); Lymphocytes Percent Auto 19.5 % (20-40); Mean Corpuscular HGB Conc 33.3 g/dl (31.0-36.0); Mean Corpuscular Hemoglobin 32.3 pg (27.0-33.0); Mean Platelet Volume 8.9 fL (9.4-12.4); Monocytes Absolute Auto 0.6 X10*3/uL (0.1-1.2); Monocytes Percent Auto 10.1 % (2-11); Neutrophils Percent Auto 67.9 % (45-73); Platelet Count 286 X10*3/uL (160-400); Red Blood Count 5.04 X10*6/uL (4.60-5.80); Red Cell Distribution Width 13.5 % (11.0-16.0)
[2025-02-06 12:25] LABS: Estimated Average Glucose 117 mg/dL; Hemoglobin A1C 157.3029 umol/L; Hemoglobin A1c % 5.7 % (<6.0); Total Hemoglobin (HGBA1C) 4103.3034 umol/L
[2025-02-06 12:39] LABS: Alanine Aminotransferase 31 U/L (0-40); Albumin Level 4.1 g/dL (3.5-5.0); Alkaline Phosphatase 90 U/L (39-117); Anion Gap 12 (12-20); Aspartate Amino Transferase 30 U/L (5-37); Blood Urea Nitrogen 17 mg/dL (9-16); Calcium 8.9 mg/dL (8.4-10.2); Carbon Dioxide 29 mmol/L (22-29); Chloride 107 mmol/L (96-108); Cholesterol 115 mg/dL (<200); Estimated Glomerular Filt Rate > 60; Glucose Random 100 mg/dL (60-115); HDL Cholesterol 40 mg/dL (>40); LDL Cholesterol Calculated 65 mg/dL (<100); Potassium 4.8 mmol/L (3.3-5.1); Sodium 143 mmol/L (135-145); Total Protein 7.1 g/dL (6.5-8.0); Triglycerides 52 mg/dL (<150)
[2025-02-06 12:55] LABS: Free T4 (Free Thyroxine) 0.96 ng/dL (0.71-1.85); Thyroid Stimulating Hormone 3.14 uIU/mL (0.32-4.0)
[2025-02-06 13:07] LABS: Folate 7.9 ng/mL (> or = 4.0); Prostate Specific Antigen 1.29 ng/mL (<0.05-4.0); Vitamin B12 382 pg/mL (200-900)
== END 2025-02-06 10:11 | disposition home or self-care (01) ==
LOC: HO.US 10:10
PROVIDERS: PCP Internal Medicine; Visit Provider Internal Medicine
DX: R60.0 Localized edema (principal); I10 Essential (primary) hypertension; R33.9 Retention of urine, unspecified; R73.01 Impaired fasting glucose; E78.00 Pure hypercholesterolemia, unspecified; Z12.5 Encounter for screening for malignant neoplasm of prostate
CPT/HCPCS: 36415; 80053; 80061; 82607; 82746; 83036; 84153; 84439; 84443; 85025; 93970

== ENCOUNTER → 2025-02-06 10:13 | Outpatient (BNV) | payer MEDICARE, SELFPAY | PROVIDERS: PCP Internal Medicine; Visit Provider Radiology Diagnostic Radiology | DX: R22.41 Localized swelling, mass and lump, right lower limb (principal); R22.42 Localized swelling, mass and lump, left lower limb | CPT/HCPCS: 93970 ==

== ENCOUNTER → 2025-03-13 07:55 | Outpatient (REF) | payer MEDICARE, SELFPAY ==
--- NOTE | 2025-03-13 07:57 | CA_ITS ---
Transthoracic Echocardiogram Patient (Last, First, Middle): Tenzin Armando, Gender: Male Date of : 1950 Age: 74 Procedure Date: 03/13/2025 Procedure Type: Transthoracic Echocardiogram Location: OP Height: 180.34 cm Weight: 101.61 kg BSA: 2.21 m2 Heart Rate: bpm BP: 132 / 74 mmHg Sociology Research Assistant: NOHEMY Referring MD: Cathie Ruano MD Symptoms: I77.810 - Thoracic aortic ectasia Study Quality: Adequate ECG Rhythm: Atrial Fibrillation Conclusions: - The left ventricular systolic function is low normal. The visually estimated ejection fraction is between 50-55%. - The left atrium is severely dilated. - There is mild to moderate aortic valve stenosis. There is moderate aortic valve regurgitation. Cannot exclude bicuspid aortic valve. - Mild to moderate pulmonary hypertension is present. - There is mild dilatation of the ascending aorta measuring 4.20 cm. Findings Left Ventricle Normal left ventricular cavity size. The left ventricular systolic function is low normal. The visually estimated ejection fraction is between 50-55%. Diastolic function is indeterminate on the basis of available data. There is moderate septal and moderate basal asymmetric hypertrophy. Right Ventricle Moderately increased right ventricular cavity size. There is normal right ventricular systolic function. Atria The left atrium is severely dilated. The right atrium is moderately dilated. Aortic Valve There is moderate calcification of the aortic valve. There is mild to moderate aortic valve stenosis. There is moderate aortic valve regurgitation. Cannot exclude bicuspid aortic valve. Mitral Valve The mitral valve appears normal. There is mild mitral valve regurgitation. There is no mitral valve stenosis. Pulmonic Valve There is trace pulmonic valve regurgitation. Tricuspid Valve There is mild tricuspid valve regurgitation. Mild to moderate pulmonary hypertension is present. Great Vessels There is mild dilatation of the ascending aorta measuring 4.20 cm. Venous The inferior vena cava is dilated and collapses less than 50% with inspiration. Pericardium/Pleural There is no evidence of pericardial effusion. Prior Study Comparison Changes noted compared to prior study dated: 06/22/2023. Slight progression of aortic stenosis. Measurements 2D Linear Measurements IVSd: 1.15 0.6-0.9/0.6-1.0 cm LVIDd: 5.76 3.9-5.3/4.2-5.9 cm LVIDd Index: 2.61 2.4-3.2/2.2-3.1 cm/m2 LVIDs: 3.84 2.0-3.6 cm LVPWd: 1.15 0.7-1.1 cm LA Diam: 5.00 2.7-3.8/3.0-4.0 cm LAIDs Index: 2.26 1.5-2.3 cm/m2 LV Mass: 345.80 67-162/88-224 g LV Mass Index: 156.47 43-95/49-115 g/m2 LVOT Diam: 2.10 3.0+(-)1.3 cm 2D Systolic Function EF 4C: 52.80 >55% EF 2C: 54.90 >55% EF BiP: 54.20 >55% Mitral Valve MV Pk E: 0.96 MV Decel Time: 229.00 E'Lateral: 10.40 E'Medial: 3.96 E/E' Med: 24.20 E/E' Lat: 9.20 PHT: 67.00 MVA PHT: 3.[address] [place]: 4.23 Aortic Valve AoV Pk Herbert: 2.83 AoV Mn Herbert: 1.84 AoV VTI: 0.71 AoV Pk Grad: 32.00 Aov Mn Grad: 16.00 SHANDRA Cont.VTI: 1.49 AI Pk Herbert: 4.[address] [place]: 2.45 LVOT LVOT Pk Herbert: 1.17 LVOT Mn Herbert: 0.81 LVOT VTI: 0.31 LVOT Pk Grad: 5.00 LVOT Mn Grad: 3.00 LVOT Diam: 2.10 LVOT Area: 3.46 Diastolic Function MV Pk E: 0.96 E'Medial: 3.96 E/E' Med: 24.20 E' Laterial: 10.40 E/E' Lat: 9.20 Right Ventricle TAPSE (mm): 22.30 TVS' Herbert: 9.96 Tricuspid Valve TR Pk Herbert: 3.05 TR Pk Grad: 37.00 RA Press: 15.00 RVSP: 52.00 Great Vessels Aorta Sinus of Valsalva: 3.59 2.0-3.5 cm Ao Asc: 4.20 2.1-3.4 cm Updated in Other Vendor System with Status of Final Fili Carvajal MD electronically signed on 03/13/2025 9:53:35 AM with status of Final
--- OUTSIDE RECORDS SUMMARY | 2025-03-13 07:57 | XMS_ITS | Clinical Summary ---
Author Organization [facility] Address [address] [place] [address] Care Team Providers Care Collection Teller Name Role Phone Unavailable Primary Care Provider Unavailabl e Social History Tobacco Use Types Packs/Day Years Used Date Smoking Tobacco: Never Assessed Sex and Gender Information Value Date Recorded Sex Assigned at Not on file Legal Sex Male 10:15 AM EDT Gender Identity Not on file Sexual Orientation Not on file Plan of Treatment Upcoming Encounters Date Type Department Care Team (Late st Contact Info) Description 03/17/2025 9:30 AM EDT Consult [facility] [place] [address] JACOB Drew PA-C [address] [place] [address] Health Maintenance Due Date Last Done Comments Hepatitis C Virus Screening 1950 DTaP/Tdap/Td Vaccines (1 - Tdap) 1970 Colonoscopy 1996 Pneumococcal Vaccines 50+ (1 of 1 - PCV) 2001 Zoster (Shingles) Vaccine (1 of 2) 2001 COVID-19 Vaccine ( - 2023-2 5 season) 2024 Influenza Vaccine 05/12/2025 RSV Vaccine 60 years and old er and Patients (1 - 1-dose 75+ series) 2026 Hepatitis B Vaccines Aged Out No long er eligible based on patient's age to complete this topic
== END ==
LOC: HO.CARD 07:55
PROVIDERS: PCP Internal Medicine; Visit Provider Internal Medicine
DX: I77.810 Thoracic aortic ectasia (principal)
CPT/HCPCS: 93306

== ENCOUNTER → 2025-03-13 07:57 | Outpatient (BNV) | payer MEDICARE, SELFPAY | PROVIDERS: PCP Internal Medicine; Visit Provider Internal Medicine | DX: I51.7 Cardiomegaly (principal); I70.0 Atherosclerosis of aorta; I35.2 Nonrheumatic aortic (valve) stenosis with insufficiency; I27.20 Pulmonary hypertension, unspecified | CPT/HCPCS: 93306 ==

== ENCOUNTER 2025-05-09 08:18 | Outpatient (AMB) | payer MEDICARE, SELFPAY ==
[2025-05-09 08:23] VITALS: BP 116/74; PULSE 73; RESP 18; TEMP 36.2; O2SAT 100; BMI 31.0
--- NOTE | 2025-05-09 08:23 | A.OFFPC_ITS ---
Vital Signs 05/09/25 08:23 Height 5 ft 11 in Weight 222 lb 6 oz BMI 31.0 BP 116/74 Blood Pressure Location Lt brachial Position Sitting Respiration 18 Pulse 73 Pulse Source Pulse Oximeter Temp 97.1 F Temp Source Temporal Artery Scan Pulse Oximetry (%) 100 Oxygen Delivery Method Room Air Intake Visit Reasons: atrial fibrillation, HTN Allergies lisinopril Adverse Reaction (Intermediate, Verified 05/09/25 08:25) cough Tobacco use date assessed: 05/09/25 Fall risk assessment: No Falls in past year Last assessed Fall Risk: 05/09/25 Dental Screening Dental Screen Date: 05/09/25 Did you have a dental visit in the last 12 months?: No Did you have a dental problem in the last 6 months where you did not have access to dental care?: No Was dental information given to patient?: Patient has dentist [facility] Medical History (Updated 05/09/25 @ 08:36 by Cathie Ruano MD) Screening for colon cancer Screening for prostate cancer Screening for diabetes mellitus Spinal stenosis, lumbar region with neurogenic claudication Claudication of left lower extremity Left hamstring muscle strain Weak urinary stream PAF (paroxysmal atrial fibrillation) LBBB (left bundle branch block) Cataract Vitamin D deficiency Obesity (BMI 30-39.9) Ascending aorta dilation Benign prostatic hyperplasia Benign essential hypertension Surgical History History of prostate surgery History of colonoscopy History of cataract surgery History of surgery H/O meniscectomy of right knee Deficient knowledge of scrotal surgery History of inguinal hernia repair History of arthroscopy of left knee Family History Father Colon cancer Mother No problems noted. 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 1. Little interest or pleasure in doing things: not at all 2. Feeling down, depressed, or hopeless: not at all 3. Trouble falling or staying asleep, or sleeping too much: not at all 4. Feeling tired or having little energy: not at all 5. Poor appetite or overeating: not at all 6. Feeling bad about yourself - or that you are a failure or have let yourself or your family down: not at all 7. Trouble concentrating on things, such as reading the newspaper or watching television: not at all 8. Moving or speaking so slowly that other people could have noticed. Or the opposite - being so fidgety or restless that you have been moving around a lot more than usual: not at all 9. Thoughts that you would be better off or of hurting yourself in some way: not at all Total score: 0 Source: Developed by Drs. Puneet Hardin, Janette Butt, Shay Castillo and colleagues, with an educational zeina from [email or web address]. Thrive Questionnaire Date Thrive assessed: 01/24/25 I am a: Patient What is your living situation today?: I have a steady place to live Within the past 12 months, did the food you bought not last and you didn't have the money to get more?: Never true Within the past 12 months, did you worry whether your food would run out before you got money to buy more?: Never true Do you have trouble paying for medicines?: No Do you have trouble getting transportation to medical appointments?: No Do you have trouble paying your heating and electricity bill?: No Do you have trouble taking care of your child, family member or friend?: No Do you have trouble with day-to-day activities such as bathing, preparing meals, shopping, managing finances, etc.?: No Are you currently unemployed and looking for a job?: No Are you interested in more education?: No Please select the resources that you would like help with: None Currently or been in a relationship where the following occur: I choose not to answer THRIVE Score: 0 AUDIT C Alcohol Use Questionnaire (AUDIT-C) 1. How often do you have a drink containing alcohol?: 2-4 times a month 2. How many drinks containing alcohol do you have on a typical day when you are drinking?: 1 or 2 3. How often do you have six or more drinks on one occasion?: Never Total Score: 2 MARIELA-7 AMB Questionnaire MARIELA-7 Date MARIELA - 7 assessed: 01/24/25 Feeling nervous, anxious, or on edge: 0 = Not at all Not being able to stop or control worryin = Not at all Worrying too much about different things: 0 = Not at all Trouble relaxin = Not at all Being so restless that it is hard to sit still: 0 = Not at all Becoming easily annoyed or irritable: 0 = Not at all Feeling afraid as if something awful might happen: 0 = Not at all Total MARIELA-7 score (0-4 normal; 5-9 mild; 10-14 moderate; 15-21 severe): 0 Source: Developed by Drs. Puneet Hardin, Janette Butt, Shay Castillo and colleagues, with an educational zeina from [email or web address]. Physical exam (Primary Care) Vital Signs: Last Vital Signs Temp 97.1 F 05/09/25 08:23 Pulse 73 05/09/25 08:23 Resp 18 05/09/25 08:23 BP 116/74 05/09/25 08:23 Pulse Ox 100 05/09/25 08:23 Oxygen Delivery Method Room Air 05/09/25 08:23 BMI result Body Mass Index 31.0 Tobacco/Smoking Status: Tobacco use Status Tobacco use date assessed 05/09/25 05/09/25 08:26 Patient Tobacco Use Status Former Tobacco user 05/09/25 08:26 Tobacco use type Cigarette 05/09/25 08:26 e-Cigarette/Vaping Use Never Used 05/09/25 08:26 PHQ-9: PHQ-9 Score PHQ-9: Total score 0 05/09/25 08:26 Thrive Assessment: Date of Thrive Assessment Date Thrive assessed 01/24/25 05/09/25 08:26 Currently or been in a relationship where the following occur: I choose not to answer Const General: alert; No acute distress Eyes Conjunctivae: conjunctivae normal Resp Auscultation: clear to auscultation bilaterally Cardio Rate: regular rate Rhythm: regular rhythm GI Inspection: Yes normal to inspection Extrem General: Yes normal to inspection and No edema Coding Level of Care Code Est Pt Level 4 (10492) Complex EM visit Add On G2211 Diagnoses Impaired fasting blood sugar R73.01 Chronic atrial fibrillation I48.20 Ascending aorta dilation I77.810 Obesity (BMI 30-39.9) E66.9 Benign prostatic hyperplasia with urinary frequency N40.1; R35.0 Lower urinary tract symptom presence: symptoms present Lower urinary tract symptom detail: urinary frequency Peripheral edema R60.0 Mild aortic stenosis I35.0 Assessment & Plan Assessment & Plan (1) Impaired fasting blood sugar: Code(s): R73.01 - Impaired fasting glucose Category: Medical Plan: Decrease the amount of carbohydrate intake, pasta, bread, rice and potatoes are all sugar and that is aside from all the sweet stuff, remember that fruits are good but they are Sweet also. (2) Chronic atrial fibrillation: Code(s): I48.20 - Chronic atrial fibrillation, unspecified Category: Medical Plan: Continue with anticoagulation apixaban 5 mg twice a day atenolol 25 mg once a day (3) Ascending aorta dilation: Comment: June 2023 4.1 cm, March 2025 4.2 cm Code(s): I77.810 - Thoracic aortic ectasia Category: Medical Plan: Continue to monitor March 2025 last echocardiogram (4) Obesity (BMI 30-39.9): Code(s): E66.9 - Obesity, unspecified Category: Medical Plan: Diet and exercise (5) Benign prostatic hyperplasia: Comment: Trans urethral resection April [address]23 [address]. Bryant Code(s): N40.0 - Benign prostatic hyperplasia without lower urinary tract symptoms Category: Medical Qualifiers: Lower urinary tract symptom presence: symptoms present Lower urinary tract symptom detail: urinary frequency Qualified Code(s): N40.1 - Benign prostatic hyperplasia with lower urinary tract symptoms; R35.0 - Frequency of micturition Plan: Continuing with finasteride 5 mg once a day terazosin 5 mg once a day (6) Peripheral edema: Code(s): R60.0 - Localized edema Category: Medical Plan: When sitting down elevate the legs, exercise, and support stockings (7) Mild aortic stenosis: Comment: June 2023 2.2 cm March 2025 Code(s): I35.0 - Nonrheumatic aortic (valve) stenosis Category: Medical Plan: Continue to monitor March 2025 last echocardiogram Plan History of Present Illness The patient is a 74-year-old male presenting for a follow-up visit. The patient has a history of benign prostatic hyperplasia (BPH) and hypertension. He reports waking up twice a night to urinate, which is an improvement from previous symptoms. The patient has a history of ascending aortic dilatation, with the last echocardiogram in March 2025 showing a measurement of 4.2 cm. The echocardiogram also revealed an ejection fraction of 50 to 55%, severe left atrial dilation, mild to moderate aortic valve stenosis, and moderate aortic regurgitation. The patient has lumbar spinal stenosis and atrial fibrillation. He is on anticoagulation therapy with apixaban 5 mg twice a day and atenolol 25 mg once a day to manage atrial fibrillation. The patient has peripheral vascular disease and venous insufficiency, confirmed by an ultrasound of the lower extremities in January 2025 showing bilateral venous insufficiency. Conservative management includes leg elevation, support stockings, and exercise. The patient has a history of elevated blood sugar with a hemoglobin A1c of 5.7, indicating a risk for diabetes. He is advised to monitor carbohydrate and sugar intake to prevent progression to diabetes. The patient is obese with a body mass index of 31, and weight management is emphasized as a drake component of his health plan. Health Maintenance - Colonoscopy last performed in May 2023 - Echocardiogram in March 2025 showing EF of 50 to 55% - Blood pressure control emphasized to manage aortic dilatation - Weight management advised to address obesity - Monitoring of blood sugar levels to prevent diabetes Social History - Exercise: Patient engages in walking as weather permits - Weight Management: Patient has a history of significant weight loss from 265 pounds Review of Systems - Cardiovascular: Reports atrial fibrillation. Denies chest pain, dyspnea, or syncope. - Genitourinary: Reports nocturia, waking up twice a night to urinate. - Musculoskeletal: Denies leg pain or discomfort after walking. - General: Denies weight gain, reports weight loss. Physical Exam - Cardiovascular: Irregular rhythm noted, consistent with atrial fibrillation Results - Echocardiogram (March 2025): EF 50-55%, severe left atrial dilation, mild to moderate aortic valve stenosis, moderate aortic regurgitation, ascending aorta 4.2 cm - Ultrasound (January 2025): Bilateral venous insufficiency - Blood Work (January 2025): Normal blood count, normal electrolytes, normal renal function, mildly elevated blood sugar (HbA1c 5.7), LDL 65 Plan The patient will continue with current medications, including apixaban 5 mg twice daily and atenolol 25 mg once daily, to manage atrial fibrillation and maintain heart rate control. Regular monitoring of blood pressure and cholesterol levels is advised to manage the risk of aortic dilatation and aortic valve stenosis. For venous insufficiency, conservative management with leg elevation, support stockings, and regular exercise is recommended. The patient is advised to maintain a healthy diet and monitor carbohydrate intake to prevent progression to diabetes, given the elevated HbA1c level. Weight management is emphasized, with a target to reduce body mass index from the current level of 31. Follow-up appointments should include regular kidney function tests due to the use of anticoagulation therapy. Patient was informed and verbally consented to the use of an ambient scribe for clinic note documentation during this visit. Discussion Notes During the visit, I discussed the importance of continuing anticoagulation therapy with apixaban to reduce the risk of stroke associated with atrial fibrillation. We reviewed the echocardiogram findings, emphasizing the need for regular monitoring of blood pressure and cholesterol to manage aortic dilatation and valve stenosis. I advised the patient on conservative management strategies for venous insufficiency, including leg elevation and support stockings. We also discussed dietary modifications to prevent diabetes progression, given the elevated HbA1c level. Weight management was highlighted as a drake component of the patient's health plan, with a focus on reducing the body mass index. I recommended regular follow-up appointments to monitor kidney function due to the use of anticoagulation therapy. Patient Instructions - Continue taking apixaban 5 mg twice daily and atenolol 25 mg once daily. - Monitor blood pressure and cholesterol levels regularly. - Elevate legs and wear support stockings to manage venous insufficiency. - Follow a healthy diet and monitor carbohydrate intake to prevent diabetes. - Focus on weight management to reduce body mass index. - Schedule regular follow-up appointments for kidney function tests. Orders: Orders Complete Blood Count Auto Diff 3 Months I10 - Essential (primary) hypertension Magnesium 3 Months I10 - Essential (primary) hypertension Comprehensive Met. Panel 3 Months I10 - Essential (primary) hypertension Thyroid Stimulating Hormone 3 Months I10 - Essential (primary) hypertension Free T4 (Free Thyroxine) 3 Months I10 - Essential (primary) hypertension Hemoglobin A1c 3 Months I10 - Essential (primary) hypertension
--- OUTSIDE RECORDS SUMMARY | 2025-05-09 08:27 | XMS_ITS | Clinical Summary ---
Author Organization [facility] Address [address] [place] [id number] Care Team Providers Care Cooker Tender Name Role Phone Pcp, No Primary Care Provider Unavailabl e Allergies No known active allergies Medications methocarbamol (ROBAXIN) 750 MG tabletIndication s:Low back pain, unspecified back pain laterality, unspecified chronicity, unspecified whether sciatica present Take 1 tablet (750 mg total) by mouth 4 times daily (every 6 hours) as needed for muscle spasms. 40 tablet 03/17/2025 Active Active Problems No known active problems Encounters Date Type Department Care Team Description 03/17/2025 9:30 AM EDT [place] [address] JACOB Drew PA-C Low back pain, unspecified back pain laterality, unspecified chronicity, unspecified whether sciatica present (Primary Dx) 03/17/2025 9:25 AM [place] [address] from Last 3 Months Social History Tobacco Use Types Packs/Day Years Used Date Smoking Tobacco: Never Assessed Sex and Gender Information Value Date Recorded Sex Assigned at Male 03/15/2025 3:35 PM EDT Legal Sex Male 10:15 AM EDT Gender Identity Male 03/15/2025 3:35 PM EDT Sexual Orientation Heterosexual (straight) 03/15 3:35 PM EDT Plan of Treatment Health Maintenance Due Date Last Done Comments Hepatitis C Virus Screening 1950 DTaP/Tdap/Td Vaccines (1 - Tdap) 1970 Pneumococcal Vaccines 50+ (1 of 2 - PCV) 1970 Colonoscopy 1996 Zoster (Shingles) Vaccine (1 of 2) 2001 COVID-19 Vaccine (2023-2 5 season) 2024 Influenza Vaccine 05/12/2025 06/12/2017 RSV Vaccine 60 years and old er and Patients (1 - 1-dose 75+ series) 2026 Hepatitis B Vaccines Aged Out No long er eligible based on patient's age to complete this topic Procedures Procedure Name Priority Date/Time Associated Diagnosis Comments XR LUMBAR SPINE COMPLETE W/FLEX,EXT 4+VIEWS Routine 03/17/2025 9:28 AM EDT Low back pain, unspecified back pain laterality, unspecified chronicity, unspecified whether sciatica present from Last 3 Months Results * XR Lumbar spine complete w/Flex,Ext, 4+Views (03/17/2025 9:28 AM EDT) Narrative OA - 03/17/2025 9:28 AM EDT This exam was performed in office at [facility] and images reviewed by orthopedic provider. Any findings are documented within ambulatory encounter note on date of service. us JACOB Drew PA-C [facility] ORDERABLE S Final Result [facility] from Last 3 Months Insurance [place] [id number] MEDICARE PART A & B Care Teams Cooker Tender Relationship Specialty Start Date End Date Pcp, No PCP - General General Medicine 03/17/25
--- OUTSIDE RECORDS SUMMARY | 2025-05-09 08:27 | XMS_ITS | Patient Health Record ---
Author Organization [facility] Address [address] [place] [address] Care Team Providers Care Chief Concierge Name Role Phone Po Cathie VALLE Primary Care Provider Puneet Gonzalez [phone] Allergies No Known Allergies Reason For Referral [...] Problem Status W/U Status Risk Notes Problem [id number] Encounter for screening for malignant neoplasm of colon (Z12.11) Active confirmed Problem 662358780 History of adenomatous polyp of colon (Z86.010) Active confirmed Problem 829908596 Family history o f colon cancer (Z80.0) Active confirmed Problem Diverticulosis of colon (900817792) Diverticulosis of colon (K57.30) Active confirmed Problem 274249204 HX: prison anticoagulant use (Z92.29) Active confirmed Plan Of Treatment Future Test Test Name Order Date COLONOSCOPY 12/08/2017 COLONOSCOPY 02/24/2023 Insurance Providers Payer Name Payer Address Payer Phone Subscriber Number Group Number Insured Name Patient Relationship to Insured Coverage Start Date Coverage End Date MED[place]ARE OF [place] [address] [place] [address] [id number] ROSSI HAY Self - patient is the insured MEDEX ATTN CLAIMS [address] [place] [address] [id number] ROSSI HAY Self - patient is the insured Medical (General) History Medical History History ICD Code Hypertension Denies [place],DM,CVA,Lung disease,renal dise ase 3 negative colonoscopies wit [...]
== END 2025-05-09 08:55 | disposition home or self-care (01) ==
LOC: HO.HMCH 08:19
PROVIDERS: PCP Internal Medicine; Visit Provider Internal Medicine
DX: R73.01 Impaired fasting glucose (principal); I48.20 Chronic atrial fibrillation, unspecified; Z68.31 Body mass index [BMI] 31.0-31.9, adult; E66.9 Obesity, unspecified; I77.810 Thoracic aortic ectasia; N40.1 Benign prostatic hyperplasia with lower urinary tract symptoms; R35.0 Frequency of micturition; R60.0 Localized edema; I35.0 Nonrheumatic aortic (valve) stenosis

== ENCOUNTER → 2025-05-09 08:18 | Outpatient (BNVA) | payer MEDICARE, SELFPAY | PROVIDERS: PCP Internal Medicine; Visit Provider Internal Medicine | DX: R73.01 Impaired fasting glucose (principal); I48.0 Paroxysmal atrial fibrillation; I77.810 Thoracic aortic ectasia; E66.9 Obesity, unspecified; N40.1 Benign prostatic hyperplasia with lower urinary tract symptoms; R35.0 Frequency of micturition; I35.0 Nonrheumatic aortic (valve) stenosis; R60.0 Localized edema | CPT/HCPCS: 99212 ==

== ENCOUNTER 2025-07-04 08:24 | Outpatient (REF) | payer MEDICARE, SELFPAY ==
--- OUTSIDE RECORDS SUMMARY | 2025-07-04 09:22 | XMS_ITS | Patient Health Record ---
Author Organization [facility] Address [address] [place] [address] Care Team Providers Care Motor Overhauler Name Role Phone Po Cathie VALLE Primary Care Provider Puneet Gonzalez [phone] Allergies No Known Allergies Reason For Referral [...] Problem Status W/U Status Risk Notes Problem 535344502 Encounter for screening for malignant neoplasm of colon (Z12.11) Active confirmed Problem 990720204 History of adenomatous polyp of colon (Z86.010) Active confirmed Problem 499796748 Family history o f colon cancer (Z80.0) Active confirmed Problem Diverticulosis of colon (108917870) Diverticulosis of colon (K57.30) Active confirmed Problem 831085226 HX: nursing home anticoagulant use (Z92.29) Active confirmed Plan Of Treatment Future Test Test Name Order Date COLONOSCOPY 12/08/2017 COLONOSCOPY 02/24/2023 Insurance Providers Payer Name Payer Address Payer Phone Subscriber Number Group Number Insured Name Patient Relationship to Insured Coverage Start Date Coverage End Date [place]ARE OF [place] [address] [place] [address] [id number] ROSSI HAY Self - patient is the insured MEDEX ATTN CLAIMS [address] [place] [address] [id number] ROSSI HAY Self - patient is the insured Medical (General) History Medical History History ICD Code Hypertension Denies [place],DM,CVA,Lung disease,renal dise ase 3 negative colonoscopies wit [...]
--- OUTSIDE RECORDS SUMMARY | 2025-07-04 09:22 | XMS_ITS ---
Author Name [facility] Organization Unknown History of Medication Use Medication Directions Dispensed Refills Start Date End Date Stat us methocarbamol (ROBAXIN) 750 MG tablet Take 1 tablet (750 mg total) by mouth 4 times daily (every 6 hours) as needed for muscle spasms. 03/17/2025 active Problems Problem Status Onset Date Problem Type Date of Resoluti on Source Low back pain, unspecified back pain laterality, unspecified chronicity, unspecified whether sciatica present active Encounter[facility]osisAct [facility] Encounters Encounter Type Encounter Reason Primary Diagnosis Location Date Ambulatory [facility] 03/17/2025 Ambulatory Low back pain, unspecified Low back pain, unspecified [facility] 03/17/2025 Care Team Organization Name Specialty Phone Email Start Date End Da te [facility] 03/17/2025 04/15/2025 [facility] 02/16/2025
--- OUTSIDE RECORDS SUMMARY | 2025-07-04 09:22 | XMS_ITS | Clinical Summary ---
Author Organization [facility] Address [address] [place], [place] [id number] Phone Care Team Providers Care Floral Clerk Name Role Phone Alden Cathie Kasper MD Primary Care Provider [phone] Allergies No known active allergies Medications apixaban (ELIQUIS) 5 mg tablet Take 5 mg by mouth 2 (two) times a day. Active finasteride (PROSCAR) 5 mg tablet Take 5 mg by mouth daily. Active terazosin (HYTRIN) 10 MG capsule Take 10 mg by mouth 2 (two) times a day. Active atenolol (TENORMIN) 50 mg tablet Take 50 mg by mouth daily. Active amLODIPine (NORVASC) 10 MG tablet Take 10 mg by mouth daily. Active Active Problems No known active problems Social History Tobacco Use Types Packs/Day Years Used Date Smoking Tobacco: Former Smokeless Tobacco: Never Education Answer Date Recorded Are you interested in more education? Not on dave e 02/07/2023 Are you concerned about learning? Not on file 02/07/2023 No 02/07/2023 No 02/07/2023 Digital Access Answer Date Recorded No 03/08/2023 No 03/08/2023 No 03/08/2023 Reliable internet access at home? Not on file 03/08/2023 Device with a working camera? Not on file Sex and Gender Information Value Date Recorded Sex Assigned at Not on file Legal Sex Male 10:27 AM EST Gender Identity Not on file Sexual Orientation Not on file Last Filed Vital Signs Vital Sign Reading Time Taken Comments Blood Pressure 133/89 09/09/2021 10:48 AM EST Pulse 76 09/09/2021 10:48 AM EST irre gular Temperature 36.8 C (98.2 F) 09/09/2021 10:48 AM EST Respiratory Rate 18 09/09/2021 10:48 AM EST Oxygen Saturation 96% 09/09/2021 10:48 AM EST Inhaled Oxygen Concentration - - Weight - - Height - - Body Mass Index - - Plan of Treatment Health Maintenance Due Date Last Done Comments CREATININE LEVEL 1950 LIPID PANEL 1950 DEPRESSION SCREENING 1963 SMOKING Hx and SMOKELESS TOBACCO SCREENING 1964 HEPATITIS C SCREENING 1969 COLOGUARD 1996 COLONOSCOPY 1996 COLORECTAL CANCER SCREENING 1996 FIT TEST 1996 FOBT 1996 SIGMOIDOSCOPY 1996 VIRTUAL COLONOSCOPY 1996 ABDOMINAL AORTIC ANEURYSM (AAA) SCREENING 2016 PNEUMOCOCCAL VACCINES (50+ years) (2 of 2 - PCV) 04/07/2018 04/07/2017 INFLUENZA VACCINE (#1) 2025 , 08/05/2018, 07/20/2017 COVID-19 VACCINE (3 - 2024-2 6 season) 2025 02/04/2021, 01/11/2021 RSV VACCINE (1 - 1-dose 75+ series) 2026 Adult Td,Tdap Booster 04/26/2028 04/26/2018 ZOSTER VACCINES Completed 05/15/2019, 12/27/2018, 11/18/2018 HEPATITIS A VACCINES Aged Out No long er eligible based on patient's age to complete this topic HIB VACCINES Aged Out No longer eligi ble based on patient's age to complete this topic MENINGOCOCCAL VACCINES (ACWY) Aged Out No longer eligible based on patient's age to complete this topic MENINGOCOCCAL VACCINES (B) Aged Out N o longer eligible based on patient's age to complete this topic Medical Devices Not on file Insurance MEDICARE PART A & B [employer] MEDEX SUPPLEMENT MEDICARE PART A & B [employer] MEDEX SUPPLEMENT MEDICARE PART A & B [employer] MEDEX SUPPLEMENT MEDICARE PART A & B [employer] MEDEX SUPPLEMENT MEDICARE PART A & B [employer] SUPPLEMENT MEDICARE PART A & B [employer] SUPPLEMENT MEDICARE PART A & B [employer] MEDEX SUPPLEMENT MEDICARE PART A & B [employer] MEDEX SUPPLEMENT MEDICARE PART A & B [employer] MEDEX SUPPLEMENT Care Teams Floral Clerk Relationship Specialty Start Date End Date Cathie Ruano MD [address] [place] [address] PCP - General Internal Medicine 09/09/21 Additional Source Comments The information contained in this document represents components of the legal health record. It is not the complete legal health record.[facility]
== END 2025-07-04 08:25 | disposition home or self-care (01) ==
LOC: HO.LAB 08:24
PROVIDERS: PCP Internal Medicine; Visit Provider Urology
DX: N40.1 Benign prostatic hyperplasia with lower urinary tract symptoms (principal); R35.0 Frequency of micturition; Z12.5 Encounter for screening for malignant neoplasm of prostate
CPT/HCPCS: 36415; 84153

== ENCOUNTER 2025-07-18 09:20 | Outpatient (AMB) | payer MEDICARE, SELFPAY ==
--- NOTE | 2025-07-18 09:29 | MHC.OFFVIS ---
Intake Visit Reasons: 1y/PSA/PVR Intake Note: Patient is Present for 1 yr Follow Up Urology Medication: Terazosin, Finasteride Antibiotic Allergies: None Blood Thinners: Apixaban(Eliquis) PVR:17 mls Recent PSA: 07/04/25- 1.38 Lead Application Architect Required: No Accompanied by: Self / Same As Patient Allergies lisinopril Adverse Reaction (Intermediate, Verified 07/18/25 09:30) cough HPI Comments Details: Tenzin is a pleasant male. He is a patient of Dr. Ruano. He is seen for the following urologic condition - urinary retention - bladder outlet obstruction Yearly follow-up PVR 20 cc 3+ leukocytes Low PSA Should be off terazosin and finasteride only Thursday, Thursday, Thursday 12 month follow-up Urinary retention May 2021 seen in emergency room with 600 cc residual - passed voiding trial Current therapy for BPH terazosin 5mg and finasteride Cystoscopy - 06/01 enlarged median lobe PSA 06/01 2.1, 08/02 0.6, 01/02 0.3, 07/05 0.9, 08/05 1.4 GreenLight laser - 05/03 [facility] Medical History (Updated 05/09/25 @ 08:36 by Cathie Ruano MD) Screening for colon cancer Screening for prostate cancer Screening for diabetes mellitus Spinal stenosis, lumbar region with neurogenic claudication Claudication of left lower extremity Left hamstring muscle strain Weak urinary stream PAF (paroxysmal atrial fibrillation) LBBB (left bundle branch block) Cataract Vitamin D deficiency Obesity (BMI 30-39.9) Ascending aorta dilation Benign prostatic hyperplasia Benign essential hypertension Surgical History History of prostate surgery History of colonoscopy History of cataract surgery History of surgery H/O meniscectomy of right knee Deficient knowledge of scrotal surgery History of inguinal hernia repair History of arthroscopy of left knee Family History Father Colon cancer Mother No problems noted. 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 Cognitive needs: No Hearing needs: No Vision needs: Yes Review of Systems Const Denies chills and Denies fever(s) Card Reports no additional complaints and Denies syncope Resp Denies cough GI Denies abdominal pain and Denies heartburn Reports as per HPI and Denies change in libido Neuro Denies syncope Psych Denies change in libido Endo Denies change in libido Physical Exam Const General: cooperative, healthy appearing, comfortable and no acute distress Orientation/consciousness: patient oriented x3 HEENT Face and sinus: Yes normal facial exam Mouth: moist mucous membranes Neck Neck: Yes normal visual inspection, Yes full ROM and Yes trachea midline Chest Chest palpation & inspection: normal inspection of the chest Resp Effort & Inspection: normal respiratory effort, able to speak in complete sentences and no respiratory distress GI Inspection: Yes normal to inspection Back/Spine/Pelvis Cervical Spine: normal cervical lordosis Thoracic/Lumbar Spine: thoracic and lumbar spine normal to inspection Skin General skin exam: no rashes or lesions noted Neuro General: patient oriented x3, gait normal, tone normal and moves all extremities Extrem General: Yes normal to inspection and Yes capillary refill normal Assessment & Plan Assessment & Plan (1) Benign prostatic hyperplasia: Comment: Trans urethral resection April [address]23 Dr. Bryant Code(s): N40.0 - Benign prostatic hyperplasia without lower urinary tract symptoms Category: Medical Qualifiers: Lower urinary tract symptom presence: symptoms present Lower urinary tract symptom detail: urinary frequency Qualified Code(s): N40.1 - Benign prostatic hyperplasia with lower urinary tract symptoms; R35.0 - Frequency of micturition (2) Bladder outlet obstruction: Code(s): N32.0 - Bladder-neck obstruction Category: Medical Plan Twelve month follow-up Orders: Orders Prostate Specific Antigen 12 Months N40.1 - Benign prostatic hyperplasia with lower urinary tract symptoms, R35.0 - Frequency of micturition Medications: Refilled finasteride 5 mg PO DAILY 90 tabs 1RF 90 days N13.8 - Other obstructive and reflux uropathy, N40.1 - Benign prostatic hyperplasia with lower urinary tract symptoms, R33.9 - Retention of urine, unspecified Discontinued terazosin Discontinued Reason: Patient Completed Course 5 mg PO BEDTIME 90 days 90 caps 1RF N32.0 - Bladder-neck obstruction Patient Instructions: This note is constructed using voice recognition software. While every effort has been made to ensure accuracy legislative correspondent errors may have been included. Imaging studies, laboratory and physical exam results were discussed and reviewed in detail. No major barriers to patient understanding were identified. An opportunity to ask questions regarding the treatment plan was provided. All questions were answered. The patient expressed understanding and agreement with the above treatment plan. The patient is aware they should contact our office by phone for worsening of their current condition or the appearance of new urologic symptoms. Compliance is encouraged with any medications and followup testing that is ordered. It is a privilege to participate in the urologic care of your patient. If you have any questions or concerns regarding treatment for the above conditions, or other urologic issues, please do not hesitate to contact me. The office telephone contact is [phone]. Sincerely, Dr Willi Bryant MD, [facility] - Urology Compassionate Specialist Care for the Genitourinary System Coding Level of Care Code Est Pt Level 4 (70446) Complex EM visit Add On G2211 Diagnoses Benign prostatic hyperplasia with urinary frequency N40.1; R35.0 Lower urinary tract symptom presence: symptoms present Lower urinary tract symptom detail: urinary frequency Bladder outlet obstruction N32.0
--- OUTSIDE RECORDS SUMMARY | 2025-07-18 10:26 | XMS_ITS | Patient Health Record ---
Author Organization [facility] Address [address] [place] [address] Care Team Providers Care Water Pollution Control Technician Name Role Phone Po Cathie VALLE Primary Care Provider Puneet Gonzalez [phone] Allergies No Known Allergies Reason For Referral [...] Problem Status W/U Status Risk Notes Problem 149085608 Encounter for screening for malignant neoplasm of colon (Z12.11) Active confirmed Problem 582182521 History of adenomatous polyp of colon (Z86.010) Active confirmed Problem 010437429 Family history o f colon cancer (Z80.0) Active confirmed Problem Diverticulosis of colon (265593026) Diverticulosis of colon (K57.30) Active confirmed Problem 312781114 HX: senior living anticoagulant use (Z92.29) Active confirmed Plan Of Treatment Future Test Test Name Order Date COLONOSCOPY 12/08/2017 COLONOSCOPY 02/24/2023 Insurance Providers Payer Name Payer Address Payer Phone Subscriber Number Group Number Insured Name Patient Relationship to Insured Coverage Start Date Coverage End Date [place] [address] [place] [address] [id number] ROSSI HAY Self - patient is the insured MEDEX ATTN CLAIMS [address] [place] [address] [id number] ROSSI HAY Self - patient is the insured Medical (General) History Medical History History ICD Code Hypertension Denies [place],DM,CVA,Lung disease,renal dise ase 3 negative colonoscopies wit [...]
--- OUTSIDE RECORDS SUMMARY | 2025-07-18 10:26 | XMS_ITS | Clinical Summary ---
Author Organization [facility] Address [address] [place], [place] [id number] Phone Care Team Providers Care [employer] Principal Name Role Phone Alden Cathie Kasper MD Primary Care Provider [phone] Allergies No known active allergies Medications apixaban [...] file Insurance MEDICARE PART A & B [employer] MEDEX SUPPLEMENT MEDICARE PART A & B [employer] MEDEX SUPPLEMENT MEDICARE PART A & B [employer] MEDEX SUPPLEMENT MEDICARE PART A & B [employer] MEDEX SUPPLEMENT MEDICARE PART A & B [employer] SUPPLEMENT MEDICARE PART A & B [employer] SUPPLEMENT MEDICARE PART A & B [employer] MEDEX SUPPLEMENT MEDICARE PART A & B [employer] MEDEX SUPPLEMENT MEDICARE PART A & B [employer] MEDEX SUPPLEMENT Care Teams [employer] Principal Relationship Specialty Start Date End Date Cathie Ruano MD [address] [place] [address] PCP - General Internal Medicine 09/09/21 Additional Source Comments The information contained in this document represents components of the legal health record. It is not the complete legal health record.[facility]
--- OUTSIDE RECORDS SUMMARY | 2025-07-18 10:26 | XMS_ITS | Clinical Summary ---
Author Organization [facility] Address [address] [place] [address] Care Team Providers Care General Helper Name Role Phone Pcp, No Primary Care [...] Health Maintenance Due Date Last Done Comments Advance Care Planning 1950 Hepatitis C Virus Screening 1950 DTaP/Tdap/Td Vaccines (1 - Tdap) 1970 Pneumococcal Vaccines 50+ (1 of 2 - PCV) 1970 Colonoscopy 1996 Zoster (Shingles) Vaccine (1 of 2) 2001 Influenza Vaccine 05/12/2025 06/12/2017 COVID-19 Vaccine ( - 2023-2 5 season) 2025 RSV Vaccine 60 years and old er and Patients (1 - 1-dose 75+ series) 2026 Hepatitis B Vaccines Aged Out No long er eligible based on patient's age to complete this topic Insurance [place] [id number] MEDICARE PART A & B Care Teams General Helper Relationship Specialty Start Date End Date Pcp, No PCP - General General Medicine 03/17/25
== END 2025-07-18 10:15 | disposition home or self-care (01) ==
LOC: HO.HUSH 09:21
PROVIDERS: PCP Internal Medicine; Visit Provider Urology
DX: N40.1 Benign prostatic hyperplasia with lower urinary tract symptoms (principal); R35.0 Frequency of micturition; N32.0 Bladder-neck obstruction
CPT/HCPCS: 99214

== ENCOUNTER 2025-07-18 09:20 | Outpatient (REF) | payer MEDICARE, SELFPAY | END 2025-07-18 09:21 | disposition home or self-care (01) | LOC: HO.LAB 09:20 | PROVIDERS: PCP Internal Medicine; Visit Provider Urology | DX: N40.1 Benign prostatic hyperplasia with lower urinary tract symptoms (principal); N32.0 Bladder-neck obstruction; R35.0 Frequency of micturition; N13.8 Other obstructive and reflux uropathy | CPT/HCPCS: 51798; 81003; 87086; 87088; 87186; 99212 ==

== ENCOUNTER 2025-08-07 12:35 | Outpatient (AMB) | payer MEDICARE, SELFPAY ==
--- NOTE | 2025-08-07 12:44 | A.OFFVIS_ITS ---
Vital Signs 08/07/25 12:45 Height 5 ft 11 in Weight 225 lb 4.999 oz BMI 31.4 BP 120/62 Blood Pressure Location Lt brachial Position Sitting Pulse 45 L Pulse Source Monitor Intake Visit Reasons: r/s by us 6 mth f/up Intake Note: 6 mthf/up Accounts Adjustable Clerk Required: No Accompanied by: Self / Same As Patient Allergies lisinopril Adverse Reaction (Intermediate, Verified 07/18/25 09:30) cough Medication List - Last Reconciled 08/07/25 by Berny Kwon MD amlodipine 5 mg PO .QD apixaban (Eliquis) 5 mg PO BID atenolol 25 mg PO DAILY ciprofloxacin HCl 250 mg PO BID 7 days compress.stocking,knee,reg,lrg As directed 20-30 mm HG cyanocobalamin (vitamin B-12) 1,000 mcg PO DAILY finasteride 5 mg PO DAILY 90 days losartan 50 mg PO DAILY HPI Comments Details: 75-year-old gentleman with left bundle-branch block, mild aortic valve stenosis and mildly dilated ascending aorta. He is here for follow-up today. No chest pain or shortness of breath. He has no symptoms. He has been on amlodipine for long time and has some lower extremity edema which he has noticed recently. He also got diagnosed with BPH and has been started on terazosin which were increased to 10 mg. Was started on Eliquis for atrial fibrillation. Blood pressure control is good. He is denying any CP or SOB. No bleeding concerns. ECG is showing Afib and he has intermittent LBBB. 07/06/23: He is here for follow-up. He has been exercising and walking up to 2 miles per day. Denying any chest discomfort shortness of breath. No dizziness or lightheadedness. He bought a blood pressure cuff and has been monitoring his heart rate at home. He has documented heart rates as low as 37 and low 40s. He is currently 54 beats per minute. He is taking atenolol 50 mg daily. His blood pressure also is 100/68. He is denying any symptoms at this point. Echocardiography report was discussed in detail with the patient. 12/28/2023: He returns for follow-up. He has been doing well. He is started walking and is walking up to 3 miles per day. No chest discomfort shortness of breath. No dizziness or lightheadedness. Heart rate 55 beats per minute in atrial fibrillation. He is taking atenolol at a lower dose of 25 mg daily. He is complaining of some lower extremity edema and has been using compression stockings but is saying that they do not help. He is on amlodipine 10 mg daily which is likely cause for the peripheral edema. No symptoms/signs of heart silke lure. 01/02/25: He is here for follow-up. He has no dizziness or lightheadedness. Continues to be in atrial fibrillation with slow ventricular response 52 beats per minute on EKG. He continues to have lower extremity edema affecting the left leg only. His amlodipine dose was cut to 5 mg but he continues to get the edema. On examination he clearly has varicose veins. He also gets some dull ache in the leg. No chest discomfort shortness of breath. Blood pressure well controlled currently. 08/07/2025: He is here for follow-up. He continues to be active and has no exertional symptoms. His EKGs in the office is showing left bundle-branch block, atrial fibrillation at 45 beats per minute. No dizziness or syncope. Overall clinically stable. [facility] Medical History Screening for colon cancer Screening for prostate cancer Screening for diabetes mellitus Spinal stenosis, lumbar region with neurogenic claudication Claudication of left lower extremity Left hamstring muscle strain Weak urinary stream PAF (paroxysmal atrial fibrillation) LBBB (left bundle branch block) Cataract Vitamin D deficiency Obesity (BMI 30-39.9) Ascending aorta dilation Benign prostatic hyperplasia Benign essential hypertension Surgical History History of prostate surgery History of colonoscopy History of cataract surgery History of surgery H/O meniscectomy of right knee Deficient knowledge of scrotal surgery History of inguinal hernia repair History of arthroscopy of left knee Family History Father Colon cancer Mother No problems noted. 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 Cognitive needs: No Hearing needs: No Vision needs: Yes Review of Systems Const Denies chills, Denies fatigue, Denies fever(s), Denies frequent falls, Denies weakness, Denies weight gain and Denies weight loss ENT Denies dizziness Card Denies chest pain, Denies leg edema, Denies lightheadedness, Denies palpitations, Denies dyspnea and Denies dyspnea on exertion Resp Denies cough, Denies dyspnea and Denies dyspnea on exertion GI Denies hematochezia Musc Denies abnormal gait, Denies muscle weakness, Denies numbness, Denies radiating pain into limb and Denies tingling Neuro Denies abnormal gait, Denies dizziness, Denies frequent falls, Denies numbness, Denies tingling and Denies weakness Endo Denies fatigue and Denies palpitations Physical Exam Vital Signs: Last Vital Signs Pulse 45 L 08/07/25 12:45 BP 120/62 08/07/25 12:45 BMI result Body Mass Index 31.4 GENERAL APPEARANCE: in no acute distress, pleasant. NECK: no carotid bruit, no jugular venous distention. SKIN: no suspicious lesions, warm and dry. HEART: Systolic murmur aortic area with preserved 2nd heart sound, bradycardic. Irregularly irregular rhythm. LUNGS: clear to auscultation bilaterally. ABDOMEN: soft, nontender. EXTREMITIES: No significant edema. Left leg varicose veins. PERIPHERAL PULSES: equal. NEUROLOGIC: No gross deficits, AAO X 3 Office Procedures EKG Details: Atrial fibrillation with slow ventricular response 45 beats per minute, left bundle-branch block (new), right axis deviation, QTC 475 milliseconds. 47500-[id number], Complete Assessment & Plan Assessment & Plan (1) Atrial fibrillation with slow ventricular response: Code(s): I48.91 - Unspecified atrial fibrillation Category: Medical (2) Benign essential hypertension: Code(s): I10 - Essential (primary) hypertension Category: Medical (3) Mild aortic stenosis: Comment: June 2023 2.2 cm March 2025 Code(s): I35.0 - Nonrheumatic aortic (valve) stenosis Category: Medical (4) Peripheral edema: Code(s): R60.0 - Localized edema Category: Medical Plan Pleasant 75-year-old gentleman who is presenting for follow-up. He has permanent atrial fibrillation with slow ventricular response. Heart rate usually is in 50s but on follow-up today it is 45. He continues to be in atrial fibrillation with slow ventricular response. He also continues to be asymptomatic and physically active without exertional complaints. I have advised him to stop the atenolol. We will arrange a Holter monitor for 7 days to assess the bradycardia further. Currently I do not see any obvious indication for pacemaker placement but we will get more information with monitoring. Continue Eliquis for anticoagulation. Blood pressure well controlled. Thank you for allowing me to participate in the care of your patient. Please feel free to contact me if you have any questions. Orders: Orders ECG 7 day holter monitor Today I48.91 - Unspecified atrial fibrillation Medications: Discontinued atenolol Discontinued Reason: Doctor's Order 25 mg PO DAILY 90 tabs 0RF I10 - Essential (primary) hypertension Coding Level of Care Code Est Pt Level 4 (59172) Diagnoses Atrial fibrillation with slow ventricular response I48.91 Benign essential hypertension I10 Mild aortic stenosis I35.0 Peripheral edema R60.0 CPT Codes EKG - CPT: 27903-Aarajeoqympxbnjym, Complete ([id number])
[2025-08-07 12:45] VITALS: BP 120/62; PULSE 45; BMI 31.4
--- OUTSIDE RECORDS SUMMARY | 2025-08-07 15:59 | XMS_ITS | Clinical Summary ---
Author Organization [facility] Address [address] [place] [address] Care Team Providers Care Caramel Cutter Machine Name Role Phone Pcp, No Primary Care [...] - 2023-2 5 season) 2025 RSV Vaccine 50 years and old er and Patients (1 - 1-dose 75+ series) 2026 Hepatitis B Vaccines Aged Out No long er eligible based on patient's age to complete this topic Insurance [place] [id number] MEDICARE PART A & B Care Teams Caramel Cutter Machine Relationship Specialty Start Date End Date Pcp, No PCP - General General Medicine 03/17/25
--- OUTSIDE RECORDS SUMMARY | 2025-08-07 15:59 | XMS_ITS | Clinical Summary ---
Author Organization [facility] Address [address] [place], [place] [id number] Phone Care Team Providers Care Hollow Ware Maker Name Role Phone Alden Cathie Kasper MD Primary Care Provider [phone] Allergies No known active allergies Medications apixaban [...] file Insurance MEDICARE PART A & B [place] MEDEX SUPPLEMENT MEDICARE PART A & B [place] MEDEX SUPPLEMENT MEDICARE PART A & B [place] MEDEX SUPPLEMENT MEDICARE PART A & B [place] MEDEX SUPPLEMENT MEDICARE PART A & B [employer] [place] SUPPLEMENT MEDICARE PART A & B H3 [place] SUPPLEMENT MEDICARE PART A & B [place] MEDEX SUPPLEMENT MEDICARE PART A & B [employer] MEDEX SUPPLEMENT MEDICARE PART A & B [place] MEDEX SUPPLEMENT Care Teams Hollow Ware Maker Relationship Specialty Start Date End Date Cathie Ruano MD [address] [place] [address] PCP - General Internal Medicine 09/09/21 Additional Source Comments The information contained in this document represents components of the legal health record. It is not the complete legal health record.[facility]
--- OUTSIDE RECORDS SUMMARY | 2025-08-07 15:59 | XMS_ITS | Patient Health Record ---
Author Organization [facility] Address [address] [place] [address] Care Team Providers Care Systems Technician Name Role Phone Po Cathie VALLE Primary Care Provider Puneet Gonzalez [phone] Allergies No Known Allergies Reason For Referral No Information Medications Medication SIG (Take, Route, Frequency, Duration) Notes Start Date End Date Status Eliquis Active Finasteride 5 MG Oral; Duration: 90 Active Terazosin HCl 10 MG Oral; Duration: 90 Active Atenolol 50 MG 1 tablet Oral Once a day Active amLODIPine Besylate 5 MG take 1 tablet b y mouth once daily Oral; Duration: 30 Active Haseeb Multivitamin for Men - [...] Problem Status W/U Status Risk Notes Problem Screening for malignant neoplasm of colon (877970815) Encounter for screening for malignant neoplasm of colon (Z12.11) Active confirmed Problem History of adenomatous polyp of colon (850379119) History of adenomatous polyp of colon (Z86.010) Active confirmed Problem Family History of Cancer of Colon (Situation) (238962533) Family history of colon cancer (Z80.0) Active confirmed Problem Diverticulosis of colon (560602915) Diverticulosis of colon (K57.30) Active confirmed Problem History of drug therapy (431402838) HX: custodial anticoagulant use (Z92.29) Active confirmed Plan Of Treatment Future Test Test Name Order Date COLONOSCOPY 12/08/2017 COLONOSCOPY 02/24/2023 Insurance Providers Payer Name Payer Address Payer Phone Subscriber Number Group Number Insured Name Patient Relationship to Insured Coverage Start Date Coverage End Date MEDICARE OF [place] [address] [place] [address] [id number] ROSSI HAY Self - patient is the insured MEDEX ATTN CLAIMS [address] [place] [address] [phone] [id number] ROSSI HAY Self - patient is the insured Medical (General) History Medical History History ICD Code Hypertension Denies ID,DM,CVA,Lung disease,renal dise ase 3 negative colonoscopies wit h Dr. Alvarez---2001, 2006, 2011--just diverticulosis and internal hemorrhoids Left bundle branch block (LBBB), Atrial fib-Dr. Kwon BPH--negative prostate biopsy--scheduled for laser surgery with Dr. Bryant Colonoscopy 01/2018 with removal of a sma ll tubular adenoma Epidural injection for sciatica in 2021 Surgical History Surgery Date(Month/Year) Inguinal hernia repair right 2001 Knee surgery left 2018 Laser prostate surgery 04/20/2023
== END 2025-08-07 13:08 | disposition home or self-care (01) ==
LOC: HO.HCS 12:36
PROVIDERS: PCP Internal Medicine; Visit Provider Internal Medicine Cardiovascular Disease
DX: I48.91 Unspecified atrial fibrillation (principal); I10 Essential (primary) hypertension; I35.0 Nonrheumatic aortic (valve) stenosis; R60.0 Localized edema
CPT/HCPCS: 93010; 99214

== ENCOUNTER → 2025-08-07 12:35 | Outpatient (BNVA) | payer MEDICARE, SELFPAY | PROVIDERS: PCP Internal Medicine; Visit Provider Internal Medicine Cardiovascular Disease | DX: I10 Essential (primary) hypertension (principal); I48.91 Unspecified atrial fibrillation; I35.0 Nonrheumatic aortic (valve) stenosis; Z79.01 Long term (current) use of anticoagulants; Z87.891 Personal history of nicotine dependence; R60.0 Localized edema | CPT/HCPCS: 93005; 99212 ==

== ENCOUNTER → 2025-08-22 10:40 | Outpatient (REF) | payer MEDICARE, SELFPAY ==
--- NOTE | 2025-08-22 10:43 | HM_ITS ---
* Total monitoring time 6 days and 7 hours. * Underlying rhythm is atrial fibrillation. Average ventricular rate 64/Min. * Ventricular ectopy noted with a burden of 3.6%. Rare couplets and isolated triplet. One run of 6 beats. Monomorphic. * Pauses noted but do not reach significance. * No patient markers or diary events. MTDD
[2025-08-22 11:04] LABS: MANUAL DIFF FLAG NO
[2025-08-22 11:29] LABS: Hematocrit 53.7 % (42.0-52.0); Hemoglobin 17.7 g/dl (14.0-18.0); Imm Gran Abs Auto 0.01 X10*3/uL (0.00-0.03); Imm Gran Pct Auto 0.2 % (0.0-0.4); Lymphocytes Absolute Auto 1.5 X10*3/uL (1.2-4.9); Mean Corpuscular HGB Conc 33.0 g/dl (31.0-36.0); Mean Corpuscular Hemoglobin 32.7 pg (27.0-33.0); Mean Corpuscular Volume 99.1 fL (80.0-98.0); NRBC Abs Auto 0.000 X10*3/uL (0.0-0.012); NRBC Pct Auto 0.0 /100WBC (0.0-0.2); Platelet Count 295 X10*3/uL (160-400); Red Blood Count 5.42 X10*6/uL (4.60-5.80); White Blood Count 4.8 X10*3/uL (4.8-10.8)
[2025-08-22 12:20] LABS: Alanine Aminotransferase 35 U/L (0-40); Albumin Level 4.4 g/dL (3.5-5.0); Alkaline Phosphatase 94 U/L (39-117); Anion Gap 11 (12-20); Aspartate Amino Transferase 34 U/L (5-37); Blood Urea Nitrogen 8 mg/dL (9-16); Calcium 9.3 mg/dL (8.4-10.2); Carbon Dioxide 28 mmol/L (22-29); Chloride 106 mmol/L (96-108); Estimated Glomerular Filt Rate > 60; Magnesium 2.1 mg/dL (1.6-2.6); Potassium 4.4 mmol/L (3.3-5.1); Sodium 141 mmol/L (135-145); Total Protein 7.3 g/dL (6.5-8.0)
--- OUTSIDE RECORDS SUMMARY | 2025-08-22 12:20 | XMS_ITS | Patient Health Record ---
Author Organization [facility] Address [address] [place] [address] Care Team Providers Care Drivers License Examiner Name Role Phone Po Cathie VALLE Primary Care Provider Puneet Gonzalez [phone] Allergies No Known Allergies Reason For Referral [...] Problem Screening for malignant neoplasm of colon (810553997) Encounter for screening for malignant neoplasm of colon (Z12.11) Active confirmed Problem History of adenomatous polyp of colon (447356655) History of adenomatous polyp of colon (Z86.010) Active confirmed Problem Family History of Cancer of Colon (Situation) (399940584) Family history of colon cancer (Z80.0) Active confirmed Problem Diverticulosis of colon (848421184) Diverticulosis of colon (K57.30) Active confirmed Problem History of drug therapy (290502166) 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 (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) Active confirmed Plan Of Treatment Future Test Test Name Order Date COLONOSCOPY 12/08/2017 COLONOSCOPY 02/24/2023 Insurance Providers Payer Name Payer Address Payer Phone Subscriber Number Group Number Insured Name Patient Relationship to Insured Coverage Start Date Coverage End Date MEDICARE OF [place] [address] [place] [address] [phone] [id number] ROSSI HAY Self - patient is the insured MEDEX ATTN CLAIMS [address] [place] [address] [id number] ROSSI HAY Self - patient is the insured Medical (General) History Medical History History ICD Code Hypertension Denies [place],DM,CVA,Lung disease,renal dise ase 3 negative colonoscopies wit [...]
--- OUTSIDE RECORDS SUMMARY | 2025-08-22 12:20 | XMS_ITS | Clinical Summary ---
Author Organization [facility] Address [address] [place], [place] [address] Phone Care Team Providers Care Quarter Trimmer Name Role Phone Alden Cathie Kasper MD Primary Care Provider [phone] Allergies No known active allergies Medications apixaban [...] file Insurance MEDICARE PART A & B [employer] MEDEX SUPPLEMENT MEDICARE PART A & B [employer] MEDEX SUPPLEMENT MEDICARE PART A & B [employer] MEDEX SUPPLEMENT MEDICARE PART A & B [employer] MEDEX SUPPLEMENT MEDICARE PART A & B [employer] Payments SUPPLEMENT MEDICARE PART A & B [employer] Payments SUPPLEMENT MEDICARE PART A & B [employer] MEDEX SUPPLEMENT MEDICARE PART A & B BLUE CROSS MEDEX SUPPLEMENT MEDICARE PART A & B [employer] MEDEX SUPPLEMENT Care Teams Quarter Trimmer Relationship Specialty Start Date End Date Cathie Ruano MD [address] [place] [address] PCP - General Internal Medicine 09/09/21 Additional Source Comments The information contained in this document represents components of the legal health record. It is not the complete legal health record.[facility]
--- OUTSIDE RECORDS SUMMARY | 2025-08-22 12:20 | XMS_ITS | Clinical Summary ---
Author Organization [facility] Address [address] [place] [address] Care Team Providers Care Survey Instrument Operator Name Role Phone Pcp, No Primary Care [...] patient's age to complete this topic Insurance [place] [id number] MEDICARE PART A & B Care Teams Survey Instrument Operator Relationship Specialty Start Date End Date Pcp, No PCP - General General Medicine 03/17/25
--- OUTSIDE RECORDS SUMMARY | 2025-08-22 12:20 | XMS_ITS ---
Author Organization Unknown ENCOUNTERS Encounter Performer Location Date Diagnosis Diagnosis Status Emergency [facility] [address] [place] [address] [id number] DESTINEY Pre Admit [facility] [address] [place] [address] [id number] Pre Admit [facility] [address] [place] [address] [id number] Outpatient [facility] [address] [place] [address] [id number] DESTINEY Pre Admit [facility] [address] [place] [address] [id number] Outpatient [facility] [address] [place] [address] [id number] [facility] [address] [place] [address] [id number] DESTINEY Emergency [facility] [address] [place] [address] [id number] DESTINEY Emergency [facility] [address] [place] [address] [id number] DESTINEY *Note: Encounters from your own facility or health system may be excluded. Allergies, Adverse Reactions, Alerts Allergen Type Severity Identification Date lisinopril drug allergy [id number] Medications Name Date Quantity Days Supplied GPI Number
[2025-08-22 12:40] LABS: Free T4 (Free Thyroxine) 0.99 ng/dL (0.71-1.85); Thyroid Stimulating Hormone 2.65 uIU/mL (0.32-4.0)
== END ==
LOC: HO.CARD 10:40
PROVIDERS: Absent Provider Internal Medicine; PCP Internal Medicine; Visit Provider Internal Medicine Cardiovascular Disease
DX: I10 Essential (primary) hypertension (principal); I48.91 Unspecified atrial fibrillation; Z13.1 Encounter for screening for diabetes mellitus
CPT/HCPCS: 36415; 80053; 83036; 83735; 84439; 84443; 85025; 93242

== ENCOUNTER → 2025-08-22 10:43 | Outpatient (BNV) | payer MEDICARE, SELFPAY | PROVIDERS: Absent Provider Internal Medicine; PCP Internal Medicine; Visit Provider Internal Medicine | DX: I49.3 Ventricular premature depolarization (principal) | CPT/HCPCS: 93244 ==

== ENCOUNTER 2025-09-05 08:09 | Outpatient (AMB) | payer MEDICARE, SELFPAY ==
--- NOTE | 2025-09-05 08:16 | A.OFFPC_ITS ---
Vital Signs 09/05/25 08:18 Height 5 ft 11 in Weight 220 lb 6 oz BMI 30.7 BP 132/66 Blood Pressure Location Lt brachial Position Sitting Pulse 50 Pulse Source Pulse Oximeter Temp 96.9 F Temp Source Temporal Artery Scan Pulse Oximetry (%) 97 Oxygen Delivery Method Room Air Intake Visit Reasons: afib, HTN Intake Note: Patient is here to follow up on Afib, HTN. Janitorial Assistant Required: No Community Liaison Officer: Not Required per policy Accompanied by: Self / Same As Patient Allergies lisinopril Adverse Reaction (Intermediate, Verified 09/05/25 08:17) cough Medication List - Last Reconciled 09/05/25 by Cathie Ruano MD amlodipine 5 mg PO BID apixaban (Eliquis) 5 mg PO BID compress.stocking,knee,reg,lrg As directed 20-30 mm HG cyanocobalamin (vitamin B-12) 1,000 mcg PO DAILY finasteride 5 mg PO DAILY 90 days losartan 50 mg PO DAILY Tobacco use date assessed: 09/05/25 Fall risk assessment: No Falls in past year Last assessed Fall Risk: 09/05/25 Dental Screening Dental Screen Date: 05/09/25 HPI HPI Comments History of Present Illness Details History of Present Illness The patient is a 75-year-old individual presenting for a follow-up visit for multiple chronic conditions. The patient is noted to be obese with a recent 5- pound weight loss. The patient has a history of atrial fibrillation, for which the patient is on Eliquis for anticoagulation, and essential hypertension, managed with amlodipine 5 mg and losartan 50 mg daily. Cardiology follow-up was on August 07, and atenolol was discontinued due to bradycardia. A Holter monitor test was recently completed to evaluate the need for a pacemaker, and results are pending. The patient's heart rate at home has been in the 50-55 bpm range. An echocardiogram in March 2025 showed an ascending aorta dilatation of 4.2 cm. The patient has a history of BPH with urinary retention and bladder outlet obstruction, and follows with urology, with the last visit on July 18. A post- void residual was 17. The patient's medication, terazosin, was discontinued, and the patient is now on finasteride only, which is reportedly working well. Other past medical history includes lumbar spinal stenosis and peripheral vascular disease. The last colon test was performed in May 2023. Blood work from August 22 showed a normal blood count with macrocytosis but no anemia, normal electrolytes, and normal renal and liver function. The hemoglobin A1c was 5.8%, indicating prediabetes. The last cholesterol test in January showed an LDL of 65 mg/dL, and thyroid function is normal. The patient reports drinking alcohol a couple of times per week and walks three miles two to three times per week. Health Maintenance Follow-up blood work, including a fasting lipid panel, will be ordered for five months from now to continue monitoring. The patient is up-to-date with influenza, shingles, tetanus, and pneumonia vaccinations. Social History - Alcohol Use: Reports drinking beer or [employer] a couple of times a week. - Exercise: Reports walking three miles two to three times a week. - Diet: Advised to reduce intake of past a, bread, rice, and potatoes. Results - Laboratory Results (August 22): - CBC: Normal blood count with macrocyto sis; non-anemic. - CMP: Electrolytes, renal function, micah er function, magnesium, and calcium are normal. - Hemoglobin A1c: 5.8%. - Laboratory Results (January): - Lipid Panel: LDL was 65 mg/dL. - Other Laboratory Results: - Thyroid function: Normal. - Tests and Diagnostics: - Echocardiogram (March 2025): Ascending aorta dilatation of 4.2 cm. - Urology Evaluation (July 18): Post-v oid residual of 17 mL. - Holter Monitor: Recently completed, re sults pending. - Colon Test (May 2023): Done. [facility] Medical History Screening for colon cancer Screening for prostate cancer Screening for diabetes mellitus Spinal stenosis, lumbar region with neurogenic claudication Claudication of left lower extremity Left hamstring muscle strain Weak urinary stream PAF (paroxysmal atrial fibrillation) LBBB (left bundle branch block) Cataract Vitamin D deficiency Obesity (BMI 30-39.9) Ascending aorta dilation Benign prostatic hyperplasia Benign essential hypertension Surgical History History of prostate surgery History of colonoscopy History of cataract surgery History of surgery H/O meniscectomy of right knee Deficient knowledge of scrotal surgery History of inguinal hernia repair History of arthroscopy of left knee Family History Father Colon cancer Mother No problems noted. 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 Cognitive needs: No Hearing needs: No Vision needs: Yes Questionnaire Thrive Questionnaire Date Thrive assessed: 05/09/25 I am a: Patient What is your living situation today?: I have a steady place to live Within the past 12 months, did the food you bought not last and you didn't have the money to get more?: Never true Within the past 12 months, did you worry whether your food would run out before you got money to buy more?: Never true Do you have trouble paying for medicines?: No Do you have trouble getting transportation to medical appointments?: No Do you have trouble paying your heating and electricity bill?: No Do you have trouble taking care of your child, family member or friend?: No Do you have trouble with day-to-day activities such as bathing, preparing meals, shopping, managing finances, etc.?: No Are you currently unemployed and looking for a job?: No Are you interested in more education?: No Please select the resources that you would like help with: None Currently or been in a relationship where the following occur: I choose not to answer THRIVE Score: 0 MARIELA-7 AMB Questionnaire MARIELA-7 Date MARIELA - 7 assessed: 01/24/25 Source: Developed by Drs. Puneet Hardin, Janette Butt, Shay Castillo and colleagues, with an educational zeina from [employer] Review of Systems Narrative Review of Systems - General: Reports feeling well. Reports a 5-pound weight loss. - Cardiovascular: Denies dyspnea. - Gastrointestinal: Reports normal bowel movements. - Genitourinary: Reports nocturia, waking 2-3 times per night, which is an improvement. Physical exam (Primary Care) Vital Signs: Last Vital Signs Temp 96.9 F 09/05/25 08:18 Pulse 50 09/05/25 08:18 BP 132/66 09/05/25 08:18 Pulse Ox 97 09/05/25 08:18 Oxygen Delivery Method Room Air 09/05/25 08:18 BMI result Body Mass Index 30.7 Tobacco/Smoking Status: Tobacco use Status Tobacco use date assessed 09/05/25 09/05/25 08:24 Patient Tobacco Use Status Former Tobacco user 09/05/25 08:24 Tobacco use type Cigarette 09/05/25 08:24 e-Cigarette/Vaping Use Never Used 09/05/25 08:24 Thrive Assessment: Date of Thrive Assessment Date Thrive assessed 05/09/25 09/05/25 08:24 Currently or been in a relationship where the following occur: I choose not to answer Narrative Physical Exam - Cardiovascular: Heart rhythm is regular and slow on auscultation. - Respiratory: The back was auscultated. Const General: alert; No acute distress Eyes Conjunctivae: conjunctivae normal Resp Auscultation: clear to auscultation bilaterally Cardio Rate: regular rate Rhythm: regular rhythm GI Inspection: Yes normal to inspection Extrem General: Yes normal to inspection and No edema Coding Level of Care Code Complex visit Add On G2211 Diagnoses Atrial fibrillation with slow ventricular response I48.91 Benign essential hypertension I10 Impaired fasting blood sugar R73.01 Obesity (BMI 30-39.9) E66.9 Benign prostatic hyperplasia with urinary frequency N40.1; R35.0 Lower urinary tract symptom detail: urinary frequency Lower urinary tract symptom presence: symptoms present Assessment & Plan Assessment & Plan (1) Atrial fibrillation with slow ventricular response: Code(s): I48.91 - Unspecified atrial fibrillation Category: Medical Plan: Patient has followed up with Cardiology and has discontinued atenolol. Patient on anticoagulation with Eliquis August 2025 last blood work. Holter requested (2) Benign essential hypertension: Code(s): I10 - Essential (primary) hypertension Category: Medical Plan: Continue with blood pressure medication. Decrease salt intake and exercise on amlodipine 5 mg once a day losartan 50 mg once a day (3) Impaired fasting blood sugar: Code(s): R73.01 - Impaired fasting glucose Category: Medical Plan: Decrease the amount of carbohydrate intake, pasta, bread, rice and potatoes are all sugar and that is aside from all the sweet stuff, remember that fruits are good but they are Sweet also. (4) Obesity (BMI 30-39.9): Code(s): E66.9 - Obesity, unspecified Category: Medical Plan: Diet and exercise (5) Benign prostatic hyperplasia: Comment: Trans urethral resection April [address]23 Dr. Bryant Code(s): N40.0 - Benign prostatic hyperplasia without lower urinary tract symptoms Category: Medical Qualifiers: Lower urinary tract symptom detail: urinary frequency Lower urinary tract symptom presence: symptoms present Qualified Code(s): N40.1 - Benign prostatic hyperplasia with lower urinary tract symptoms; R35.0 - Frequency of micturition Plan: Patient follows up with urology discontinued terazosin has been placed on finasteride Plan Plan Patient was informed and verbally consented to the use of an ambient scribe for clinic note documentation during this visit. 1. Atrial Fibrillation / Bradycardia The patient was seen by cardiology and atenolol was discontinued due to bradycardia. A Holter monitor was recently completed to evaluate for a possible pacemaker, and the results are pending. Anticoagulation with Eliquis will be continued. 2. Hypertension The plan includes continuing amlodipine 5 mg once a day and losartan 50 mg once a day. 3. Benign Prostatic Hyperplasia The patient follows up with urology and has discontinued terazosin. The patient will continue finasteride only, which has been effective. 4. Prediabetes The patient's hemoglobin A1c is 5.8%. The plan includes counseling on diet and exercise, specifically advising to reduce intake of pasta, bread, rice, and potatoes. Discussion Notes I reviewed the recent note from cardiology, and we discussed the discontinuation of atenolol due to bradycardia. I explained that the Holter monitor test, which the patient recently completed, is to help determine if a pacemaker is needed. We discussed that the patient's home heart rate of 50-55 bpm is acceptable, although below the normal range of 60-100 bpm. I also reviewed the urology notes and confirmed the patient is doing well on finasteride alone for BPH. We discussed the patient's recent blood work, noting the HbA1c of 5.8% which indicates prediabetes, and I counseled on lifestyle modifications including reducing carbohydrate intake. I explained that the patient's red blood cells are slightly large, which can be associated with alcohol intake, but that there is no anemia. I informed the patient that I will order repeat blood work, including a fasting cholesterol test, for five months from now to continue monitoring. Patient Instructions - Continue your current medications for blood pressure (amlodipine, losartan) and prostate (finasteride). - You have stopped taking atenolol as advised by your heart doctor because your heart rate was too slow. - We are waiting for the results of the Holter heart monitor test you recently completed to see how your heart is doing. - Your blood sugar is a little high, in the prediabetic range. Please try to eat less pasta, bread, rice, and potatoes to keep it from becoming a problem. - Please go for follow-up blood work in about five months (around January). You will need to fast (no food or drink except water) before this test. - Continue your walking routine of three miles, two to three times a week. - You are up to date on your flu, shingles, tetanus, and pneumonia shots. Orders: Orders Complete Blood Count Auto Diff 5 Months I48.20 - Chronic atrial fibrillation, unspecified Comprehensive Met. Panel 5 Months I48.20 - Chronic atrial fibrillation, unspecified Free T4 (Free Thyroxine) 5 Months I48.20 - Chronic atrial fibrillation, unspecified Thyroid Stimulating Hormone 5 Months I48.20 - Chronic atrial fibrillation, unspecified Lipid Panel 5 Months E78.00 - Pure hypercholesterolemia, unspecified, I48.20 - Chronic atrial fibrillation, unspecified Magnesium 5 Months I48.20 - Chronic atrial fibrillation, unspecified Vitamin D 25-OH Total 5 Months I48.20 - Chronic atrial fibrillation, unspecified Prostate Specific Antigen Scr 5 Months I48.20 - Chronic atrial fibrillation, unspecified Varicella IgG Antibody 5 Months I48.20 - Chronic atrial fibrillation, unspecified, Z02.0 - Encounter for examination for admission to educational institution Vitamin B12 and Folate 5 Months I48.20 - Chronic atrial fibrillation, unspecified Hemoglobin A1c 5 Months I48.20 - Chronic atrial fibrillation, unspecified UA w Microscopic 5 Months I48.20 - Chronic atrial fibrillation, unspecified
[2025-09-05 08:18] VITALS: BP 132/66; PULSE 50; TEMP 36.1; O2SAT 97; BMI 30.7
--- OUTSIDE RECORDS SUMMARY | 2025-09-05 08:21 | XMS_ITS | Clinical Summary ---
Author Organization [facility] Address [address] [place] [address] Care Team Providers Care Foreign Student Adviser Teacher Name Role Phone Pcp, No Primary Care [...] patient's age to complete this topic Insurance [place] [id number] MEDICARE PART A & B Care Teams Foreign Student Adviser Teacher Relationship Specialty Start Date End Date Pcp, No PCP - General General Medicine 03/17/25
--- OUTSIDE RECORDS SUMMARY | 2025-09-05 08:21 | XMS_ITS ---
Author Organization Unknown ENCOUNTERS Encounter Performer Location Date Diagnosis Diagnosis Status Emergency [facility] [address] [place] [address] [id number] [place] Pre Admit [facility] [address] [place] [address] [id number] Pre Admit [facility] [address] [place] [address] [id number] Outpatient [facility] [address] [place] [address] [id number] [place] Pre Admit [facility] [address] [place] [address] [id number] Outpatient [facility] [address] [place] [address] [id number] [place] [facility] [address] [place] [address] [id number] [place] Emergency [facility] [address] [place] [address] [id number] [place] Emergency [facility] [address] [place] [address] [id number] [place] *Note: Encounters from your own facility or health system may be excluded. Allergies, Adverse Reactions, Alerts Allergen Type Severity Identification Date lisinopril drug allergy [id number] Medications Name Date Quantity Days Supplied GPI Number
--- OUTSIDE RECORDS SUMMARY | 2025-09-05 08:21 | XMS_ITS | Clinical Summary ---
Author Organization [facility] Address [address] [place], [place] [id number] Phone Care Team Providers Care Carbon Paste Mixer Operator Name Role Phone Alden Cathie Kasper MD Primary Care Provider [phone] Allergies No known active allergies Medications apixaban [...] file Insurance MEDICARE PART A & B [employer] SUPPLEMENT MEDICARE PART A & B [employer] MED[employer] SUPPLEMENT MEDICARE PART A & B [employer] MED[employer] SUPPLEMENT MEDICARE PART A & B [employer] MED[employer] SUPPLEMENT MEDICARE PART A & B [employer] SUPPLEMENT MEDICARE PART A & B [employer] SUPPLEMENT MEDICARE PART A & B [employer] MED[employer] SUPPLEMENT MEDICARE PART A & B [employer] MEDEX SUPPLEMENT MEDICARE PART A & B [employer] MEDEX SUPPLEMENT Care Teams Carbon Paste Mixer Operator Relationship Specialty Start Date End Date Cathie Ruano MD [address] [place] [address] PCP - General Internal Medicine 09/09/21 Additional Source Comments The information contained in this document represents components of the legal health record. It is not the complete legal health record.[facility]
== END 2025-09-05 09:01 | disposition home or self-care (01) ==
LOC: HO.HMCH 08:10
PROVIDERS: PCP Internal Medicine; Visit Provider Internal Medicine
DX: I48.91 Unspecified atrial fibrillation (principal); I10 Essential (primary) hypertension; R73.01 Impaired fasting glucose; E66.9 Obesity, unspecified; Z68.30 Body mass index [BMI] 30.0-30.9, adult; N40.1 Benign prostatic hyperplasia with lower urinary tract symptoms; R35.0 Frequency of micturition

== ENCOUNTER → 2025-09-05 08:09 | Outpatient (BNVA) | payer MEDICARE, SELFPAY | PROVIDERS: PCP Internal Medicine; Visit Provider Internal Medicine | DX: I48.91 Unspecified atrial fibrillation (principal); I10 Essential (primary) hypertension; R73.01 Impaired fasting glucose; E66.9 Obesity, unspecified; Z68.30 Body mass index [BMI] 30.0-30.9, adult; N40.1 Benign prostatic hyperplasia with lower urinary tract symptoms; R35.0 Frequency of micturition; Z71.3 Dietary counseling and surveillance | CPT/HCPCS: 99212 ==

== ENCOUNTER 2025-09-26 10:41 | Outpatient (AMB) | payer MEDICARE, SELFPAY ==
--- NOTE | 2025-09-26 10:53 | AM.OFFVISMDC ---
Intake Vital Signs 09/26/25 10:56 Height 5 ft 11 in Weight 225 lb 8 oz BMI 31.4 BP 132/62 Blood Pressure Location Lt brachial Position Sitting Pulse 63 Pulse Source Pulse Oximeter Temp 97.1 F Temp Source Temporal Artery Scan Pulse Oximetry (%) 98 Oxygen Delivery Method Room Air Intake Visit Reasons: V G0439 Intake Note: Patient is here for an Annual Wellness Visit. Paramedic Instructor Required: No Cost Accounting Manager: Cost Accounting Manager offered & declined Accompanied by: Self / Same As Patient Allergies lisinopril Adverse Reaction (Intermediate, Verified 09/26/25 10:54) cough Medication List - Last Reconciled 09/26/25 by Cathie Ruano MD amlodipine 5 mg PO BID apixaban (Eliquis) 5 mg PO BID compress.stocking,knee,reg,lrg As directed 20-30 mm HG cyanocobalamin (vitamin B-12) 1,000 mcg PO DAILY finasteride 5 mg PO DAILY 90 days losartan 50 mg PO DAILY multivitamin 1 tab PO DAILY HPI SWV G0439 HPI Details [place] of care [facility] Cardiology, Dr. [facility], [facility] [place] [facility] gastroenterology Dr. Huffman HPI Comments History of Present Illness Details History of Present Illness The patient is a 75-year-old obese male presenting for an annual wellness visit. His medical history is significant for hypertension, benign prostatic hyperplasia (BPH) with urinary retention, ascending aortic dilatation, lumbar spinal stenosis, atrial fibrillation, and impaired glucose tolerance. His last visit was in August 2025. His hypertension is managed with losartan 50 mg daily and amlodipine 5 mg twice daily. For atrial fibrillation, he is on anticoagulation with Eliquis. His BPH is managed with finasteride, and he follows up with urology. He takes vitamin B12 and a daily multivitamin. His last colonoscopy was in May 2023. His last blood work in August showed a normal blood count, macrocytic indices, normal electrolytes, normal renal function, and normal liver function tests. His hemoglobin A1c was 5.8%. A cholesterol test in January 2025 showed an LDL of 65 mg/dL. His prostate and thyroid labs were normal. He has a history of a right inguinal hernia repair about 30 years ago. He reports a family history of diabetes in his grandfather. Health Maintenance - Last colonoscopy was in May 2023. - Last echocardiogram was in March 2025. - An appointment for a full body skin scan for moles with dermatology is scheduled for October. - Diet and exercise were discussed for prediabetes management, with the patient noting he is careful with sugar intake. - The patient has received his flu shot. - He was counseled that for patients with hypertension, the recommendation for alcohol consumption is zero. - He was provided with healthcare proxy forms. Social History - Alcohol use: The patient reports drinking two or three beers about twice a week. - Tobacco use: Denies any history of smoking. - Recreational drug use: Denies use of recreational drugs, including marijuana. - Exercise: Reports walking three miles, weather permitting. - Diet: He reports being careful with sugar intake and has reduced his consumption of grapes. Results - Labs (August 2025): Normal CBC with macrocytic indices. Normal electrolytes, renal function, and liver function. - HbA1c (August 2025): 5.8%. - Lipids (January 2025): LDL 65 mg/dL. - Other labs: Prostate and thyroid levels are normal. - Imaging: Ascending aortic dilatation measured at 4.2 cm in March 2025. - Procedures: Last colonoscopy was in May 2023. [facility] Medical History Screening for colon cancer Screening for prostate cancer Screening for diabetes mellitus Spinal stenosis, lumbar region with neurogenic claudication Claudication of left lower extremity Left hamstring muscle strain Weak urinary stream PAF (paroxysmal atrial fibrillation) LBBB (left bundle branch block) Cataract Vitamin D deficiency Obesity (BMI 30-39.9) Ascending aorta dilation Benign prostatic hyperplasia Benign essential hypertension Surgical History History of prostate surgery History of colonoscopy History of cataract surgery History of surgery H/O meniscectomy of right knee Deficient knowledge of scrotal surgery History of inguinal hernia repair History of arthroscopy of left knee Family History Father Colon cancer Mother No problems noted. 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 Cognitive needs: No Hearing needs: No Vision needs: Yes Questionnaire Medicare Wellness Checkup [age] What gender do you identify with?: male During the past 4 weeks, how much have you been bothered by emotional problems such as feeling anxious, depressed, irritable, sad or downhearted, and blue?: not at all During the past 4 weeks, has your physical & emotional health limited your social activities with family, friends, neighbors, or groups?: not at all During the past 4 weeks, how much bodily pain have you generally had?: no pain During the past 4 weeks, was someone available to help you if you needed & wanted help?: yes, as much as I wanted During the past 4 weeks, what was the hardest physical activity you could do for at least 2 minutes?: very heavy Can you get to places out of walking distance without help? (For eg., can you travel alone on buses, taxis or drive your car?): Yes Can you go shopping for groceries or clothes without someone's help?: Yes Can you prepare your own meals?: Yes Can you do your housework without help?: Yes Because of any health problems, do you need the help of another person with your personal care needs such as eating, bathing, dressing or getting around the house?: No Can you handle your own money without help?: Yes During the past 4 weeks, how would you rate your health in general?: excellent During the past 4 weeks how have things been going for you?: very well; could hardly better Are you having difficulties driving your car?: no Do you always fasten your seat belt when you are in a car?: yes, usually During past 4 weeks, have you been bothered by the following: never: Falling or dizzy when standing up, Sexual problems?, Trouble eating well?, Teeth or denture problems?, Problems using the telephone? and Tiredness or fatigue? Have you fallen 2 or more times in the past year?: No Are you afraid of falling?: Yes Are you a smoker?: no During the past 4 weeks, how many drinks of wine, beer, or other alcoholic beverages did you have?: 1 drink or less per week Do you exercise for about 20 minutes 3 or more times a week?: yes, some of the time Have you been given information to help with the following?: no: Hazards in your house that might hurt you? and no: Keeping track of your medications? How often do you have trouble taking medicines the way you have been told to take them?: I always take medicine as prescribed How confident are you that you can control & manage most of your health problems?: very confident What is your race?: White PHQ-9 Over the last 2 weeks, how often have you been bothered by any of the following problems? 1. Little interest or pleasure in doing things: not at all 2. Feeling down, depressed, or hopeless: not at all 3. Trouble falling or staying asleep, or sleeping too much: not at all 4. Feeling tired or having little energy: not at all 5. Poor appetite or overeating: not at all 6. Feeling bad about yourself - or that you are a failure or have let yourself or your family down: not at all 7. Trouble concentrating on things, such as reading the newspaper or watching television: not at all 8. Moving or speaking so slowly that other people could have noticed. Or the opposite - being so fidgety or restless that you have been moving around a lot more than usual: not at all 9. Thoughts that you would be better off or of hurting yourself in some way: more than half the days Total score: 2 Depression Screening Interpretation: Negative Depression Screening Done: Yes 35327 - PHQ-9 Billing: Yes Source: Developed by Drs. Puneet Hardin, Janette Butt, Shay Castillo and colleagues, with an educational zeina from [employer]. Thrive Questionnaire Date Thrive assessed: 05/09/25 I am a: Patient What is your living situation today?: I have a steady place to live Within the past 12 months, did the food you bought not last and you didn't have the money to get more?: Never true Within the past 12 months, did you worry whether your food would run out before you got money to buy more?: Never true Do you have trouble paying for medicines?: No Do you have trouble getting transportation to medical appointments?: No Do you have trouble paying your heating and electricity bill?: No Do you have trouble taking care of your child, family member or friend?: No Do you have trouble with day-to-day activities such as bathing, preparing meals, shopping, managing finances, etc.?: No Are you currently unemployed and looking for a job?: No Are you interested in more education?: No Please select the resources that you would like help with: None Currently or been in a relationship where the following occur: I choose not to answer THRIVE Score: 0 MARIELA-7 AMB Questionnaire MARIELA-7 Date MARIELA - 7 assessed: 01/24/25 Source: Developed by Drs. Puneet Hardin, Janette Butt, Shay Castillo and colleagues, with an educational zeina from [employer]. Review of Systems Narrative Review of Systems - Constitutional: Denies fever. - HEENT: Reports using hearing aids, primarily for watching television. Denies problems with swallowing. - Cardiovascular: Denies palpitations or chest discomfort. - Respiratory: Denies shortness of breath at rest or with activity, and denies coughing while eating. - Gastrointestinal: Reports good bowel movements. Denies heartburn, constipation, blood in stool, or black stools. - Genitourinary: Reports improvement in urinary symptoms, waking 3 times per night to urinate (midnight, 3:15 a.m., and 6:30 a.m.). Denies feeling of incomplete bladder emptying. - Neurological: Denies falls, balance problems, passing out episodes, dizziness, nausea, or vomiting. Const Denies poor appetite and Denies weakness Eyes Denies no additional complaints ENT Reports Normal hearing present, Denies dizziness, Denies nasal congestion, Denies tinnitus and Denies sore throat Card Denies chest pain, Denies syncope, Denies rapid heart rate and Denies dyspnea Resp Denies cough and Denies dyspnea GI Denies change in stool character, Reports constipation, Denies diarrhea, Denies nausea and Denies vomiting Denies dysuria and Denies urinary frequency Neuro Reports Normal hearing present, Denies confusion, Denies dizziness, Denies syncope and Denies weakness Psych Denies confusion Physical Exam Exam Exam: Physical Exam General: Cooperative, healthy appearing, comfortable, no acute distress and well developed Orientation: Patient oriented x3 Limitations: No limitations Head: Normal to inspection Ears: Hearing aids used, mainly for watching TV Nose: Normal external nose present Face and sinus: Normal facial exam Eyes: Appearance normal, both eyes and all related structures Neck: Normal visual inspection and Yes full ROM Respiratory: Normal respiratory effort and able to speak in complete sentences. Clear to auscultation bilaterally Cardiovascular: Regular rate and rhythm. Normal S1 and S2 GI: Normal to inspection. Soft to palpation and nontender Skin: No rashes or lesions noted Neuro: Patient oriented x3 Extremities: Normal to inspection Vital Signs: Last Vital Signs Temp 97.1 F 09/26/25 10:56 Pulse 63 09/26/25 10:56 BP 132/62 09/26/25 10:56 Pulse Ox 98 09/26/25 10:56 Oxygen Delivery Method Room Air 09/26/25 10:56 BMI result Body Mass Index 31.4 Const General: No confusion Orientation/consciousness: No confusion HEENT Head: Yes normocephalic Ears: external ears normal and TM's normal bilaterally Face and sinus: Yes normal facial exam Mouth: moist mucous membranes Throat: Yes tonsils normal Eyes Conjunctivae: conjunctivae normal Pupils: Equal, round and reactive pupils present and Pupil accommodation reflex normal Direct Ophthalmoscopy: normal light reflex Neck Neck: No lymphadenopathy Thyroid: Thyroid normal Chest Chest palpation & inspection: normal inspection of the chest Resp Effort & Inspection: normal respiratory effort and no audible wheezes Auscultation: clear to auscultation bilaterally, no crackles, no wheezes and lung sounds not diminished Cardio Rate: regular rate Rhythm: regular rhythm Peripheral pulses: radial pulses present and dorsalis pedis present GI Other: guaiac negative prostate N Palpation (GI): no masses Auscultation: normal bowel sounds and normoactive bowel sounds Other: L inguinal hernia Skin General skin exam: no rashes or lesions noted Rashes: no rashes Neuro General: No confusion Cranial nerves: Yes Equal, round and reactive pupils present and Yes Normal hearing present Cognition (Neuro): normal cognition Gait exam (Neuro): Normal gait present Motor exam (neuro): 5/5 motor strength present throughout Deep tendon reflexes (DTR's): Right brachioradialis reflex intensity grade: 2+, Left brachioradialis reflex intensity grade: 2+, Right patellar reflex intensity grade: 2+ and Left patellar reflex intensity grade: 2+ Extrem General: No edema Assessment & Plan Assessment & Plan (1) Adult general medical exam: Code(s): Z00.00 - Encounter for general adult medical examination without abnormal findings Plan: Patient is advised to eat healthy, keep well hydrated, keep active and have adequate sleep. (2) Chronic atrial fibrillation: Code(s): I48.20 - Chronic atrial fibrillation, unspecified Plan: Continue with anticoagulation with Eliquis (3) Ascending aorta dilation: Comment: June 2023 4.1 cm, March 2025 4.2 cm Code(s): I77.810 - Thoracic aortic ectasia Plan: Continue to monitor March 2025 last echocardiogram control the blood pressure and cholesterol (4) Benign essential hypertension: Code(s): I10 - Essential (primary) hypertension Plan: Continue with blood pressure medication. Decrease salt intake and exercise losartan 50 mg once a day amlodipine 5 mg twice a day (5) Peripheral vascular disease: Code(s): I73.9 - Peripheral vascular disease, unspecified Plan: When sitting down elevate the legs, exercise, and support stockings (6) Impaired fasting blood sugar: Code(s): R73.01 - Impaired fasting glucose Plan: Decrease the amount of carbohydrate intake, pasta, bread, rice and potatoes are all sugar and that is aside from all the sweet stuff, remember that fruits are good but they are Sweet also. (7) Obesity (BMI 30-39.9): Code(s): E66.9 - Obesity, unspecified Plan: Diet and exercise (8) Benign prostatic hyperplasia: Comment: Trans urethral resection April [address]23 Dr. Bryant Code(s): N40.0 - Benign prostatic hyperplasia without lower urinary tract symptoms Qualifiers: Lower urinary tract symptom detail: urinary frequency Lower urinary tract symptom presence: symptoms present Qualified Code(s): N40.1 - Benign prostatic hyperplasia with lower urinary tract symptoms; R35.0 - Frequency of micturition Plan: Continue to follow-up with urology and is on finasteride (9) Left inguinal hernia: Comment: left Code(s): K40.90 - Unilateral inguinal hernia, without obstruction or gangrene, not specified as recurrent Plan: avoid lifting Plan Plan Patient was informed and verbally consented to the use of an ambient scribe for clinic note documentation during this visit. 1. Annual Wellness Visit For health maintenance, we will continue routine monitoring. He will follow up with dermatology in October for a full body skin scan. He was advised to continue a healthy diet, stay active, and get adequate fluids to maintain good circulation and healing. He was counseled on the new, stricter guidelines for alcohol consumption, especially for patients with hypertension, recommending a goal of zero intake. He was provided with healthcare proxy forms to complete. 2. Hypertension Blood pressure is currently controlled. Continue current regimen of losartan 50 mg once daily and amlodipine 5 mg twice daily. 3. Atrial Fibrillation The patient will continue anticoagulation with Eliquis. 4. Ascending Aortic Dilatation The patient will continue to monitor the condition. He follows with Dr. Bryant at [facility] cardiology. 5. Impaired Glucose Tolerance The patient's hemoglobin A1c is 5.8%. Management will focus on diet and exercise. He was counseled that while fruits like grapes contain natural sugar, they are still sugar and intake should be balanced with other carbohydrate sources. The goal is to maintain the current A1c level to avoid the need for medication. 6. Benign Prostatic Hyperplasia (Bph) The patient will continue his current medication, finasteride. He will continue to follow up with Dr. Bryant in urology. 7. Left Inguinal Hernia A left inguinal hernia was noted on physical exam, which is a new finding separate from his prior right-sided repair. The patient was instructed to avoid heavy lifting and straining. He was advised to monitor for any increase in size or the onset of pain, as these would be indications for a surgical consultation. The risks of intestinal incarceration and strangulation were discussed. Discussion Notes I discussed the findings from today's annual wellness visit with the patient. I reviewed his chronic conditions, including his controlled hypertension, atrial fibrillation, BPH, and impaired glucose tolerance, and advised continuing his current medication regimen. I informed him of a new finding of a left-sided inguinal hernia, which is asymptomatic at this time. I explained that his prior hernia repair was on the right side. I advised him to avoid heavy lifting and straining to prevent worsening of the hernia. We discussed that he should seek medical attention if the hernia becomes painful or larger, as this may require surgical intervention, and I explained the risk of intestinal incarceration. I also counseled him on the importance of diet for managing his prediabetes, noting that his A1c of 5.8 necessitates careful sugar intake. We discussed the updated, stricter recommendations regarding alcohol, advising zero intake for patients with hypertension, and its potential link to memory issues. I provided him with healthcare proxy forms to complete and bring back. He confirmed he understood the plan and had no further questions. Patient Instructions - Continue taking your current medications as prescribed, including amlodipine, losartan, Eliquis, and finasteride. - You have a new hernia on your left side. Avoid heavy lifting and straining to prevent it from getting worse. - Let us know right away if the hernia becomes painful or seems to get bigger, as this could be a serious problem. - Continue to be mindful of your sugar intake to manage your prediabetes. - It is recommended to avoid alcohol, as you have high blood pressure. - Stay active with activities like walking and drink plenty of fluids. - Keep your upcoming dermatology appointment in October for a full body skin check. - Please fill out the healthcare proxy forms we gave you and bring a copy to the office. Quality Reporting (2019) Depression/Bipolar (159/160/161/177) PHQ-9: Total score: 2 Coding Level of Care Code Medicare Subsequent (G0439) Diagnoses Adult general medical exam Z00.00 Chronic atrial fibrillation I48.20 Ascending aorta dilation I77.810 Benign essential hypertension I10 Peripheral vascular disease I73.9 Impaired fasting blood sugar R73.01 Obesity (BMI 30-39.9) E66.9 Benign prostatic hyperplasia with urinary frequency N40.1; R35.0 Lower urinary tract symptom detail: urinary frequency Lower urinary tract symptom presence: symptoms present Left inguinal hernia K40.90 Additional Codes PHQ-9 - 31407 - PHQ-9 Billing: Yes ([id number])
[2025-09-26 10:56] VITALS: BP 132/62; PULSE 63; TEMP 36.2; O2SAT 98; BMI 31.4
--- OUTSIDE RECORDS SUMMARY | 2025-09-26 13:38 | XMS_ITS | Clinical Summary ---
Author Organization [facility] Address [address] [place], [place] [id number] Phone Care Team Providers Care Senior Cost Accountant Name Role Phone Alden Cathie Kasper MD Primary Care Provider [phone] Allergies No known active allergies Medications apixaban [...] file Insurance MEDICARE PART A & B [employer] SUPPLEMENT MEDICARE PART A & B [employer] MED[employer] SUPPLEMENT MEDICARE PART A & B [place] MED[employer] SUPPLEMENT MEDICARE PART A & B [place] MED[employer] SUPPLEMENT MEDICARE PART A & B [employer] SUPPLEMENT MEDICARE PART A & B [place] SUPPLEMENT MEDICARE PART A & B [employer] MED[employer] SUPPLEMENT MEDICARE PART A & B [employer] [place] MEDEX SUPPLEMENT MEDICARE PART A & B [employer] MEDEX SUPPLEMENT Care Teams Senior Cost Accountant Relationship Specialty Start Date End Date Cathie Ruano MD [address] [place] [address] PCP - General Internal Medicine 09/09/21 Additional Source Comments The information contained in this document represents components of the legal health record. It is not the complete legal health record.[facility]
--- OUTSIDE RECORDS SUMMARY | 2025-09-26 13:38 | XMS_ITS | Clinical Summary ---
Author Organization [facility] Address [address] [place] [address] Care Team Providers Care Draw In Hand Name Role Phone Pcp, No Primary Care [...] Vaccine 05/12/2025 06/12/2017 COVID-19 Vaccine ( - 2024-2 6 season) 2025 RSV Vaccine 50 years and old er and Patients (1 - 1-dose 75+ series) 2026 Hepatitis B Vaccines Aged Out No long er eligible based on patient's age to complete this topic Insurance [place] [id number] MEDICARE PART A & B Care Teams Draw In Hand Relationship Specialty Start Date End Date Pcp, No PCP - General General Medicine 03/17/25
--- OUTSIDE RECORDS SUMMARY | 2025-09-26 13:39 | XMS_ITS | Patient Health Record ---
Author Organization [facility] Address [address] [place] [address] Care Team Providers Care Treasury Associate Name Role Phone Po Cathie VALLE Primary Care Provider Puneet Gonzalez [phone] Allergies No Known Allergies Reason For Referral No Information Medications Medication SIG (Take, Route, Frequency, Duration) Notes Start Date End Date Status Eliquis Active Finasteride 5 MG Tablet Oral; Duration: 90 Active Terazosin HCl 10 MG Capsule Oral; Duration: 90 Active Atenolol 50 MG Tablet 1 tablet Oral Once a day Active amLODIPine Besylate 5 MG Tablet take 1 tablet by mouth once daily Oral; Duration: 30 Active Haseeb Multivitamin for Men - Tablet Orally once a day Active Immunizations Vaccine Route Administration Date Status Comme nts Influenza Unknown 06/12/2017 Administered Social History Tobacco Use: Social History Observation Description Date Details (start date - stop date) Former Smoker NA - NA Social History Drugs/Alcohol: Social Info Question Answer Notes Alcohol Screen Did you have a drink containing alcohol in the past year? Yes How often did you have a drink containing alcohol in the past year? Monthly or less (1 point) How often did you have 6 or more drinks on one occasion in the past year? Never (0 point) Points 1 Interpretation Negative Tobacco Use: Social Info Question Answer Notes Tobacco Use/Smoking Patient is a former smoker How long has it been since you last smoked? 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--[employer] Section Notes: Smoked a pipe over 50 years ago; no sig alcohol Smoked a pipe over 50 years ago; no sig alcohol Problems Problem Type SNOMED Code ICD Code Onset Dates Problem Status W/U Status Risk Notes Problem Screening for malignant neoplasm of colon (843597943) Encounter for screening for malignant neoplasm of colon (Z12.11) Active confirmed Problem History of adenomatous polyp of colon (596747206) History of adenomatous polyp of colon (Z86.010) Active confirmed Problem Family History of Cancer of Colon (Situation) (814268736) Family history of colon cancer (Z80.0) Active confirmed Problem Diverticulosis of colon (664872699) Diverticulosis of colon (K57.30) Active confirmed Problem History of drug therapy (997444679) HX: jail anticoagulant use (Z92.29) Active confirmed Plan Of Treatment Future Test Test Name Order Date COLONOSCOPY 12/08/2017 COLONOSCOPY 02/24/2023 Insurance Providers Payer Name Payer Address Payer Phone Subscriber Number Group Number Insured Name Patient Relationship to Insured Coverage Start Date Coverage End Date MEDICARE OF [place] [address] [place] [address] [id number] ROSSI HAY Self - patient is the insured [employer] CLAIMS [address] [place] [phone] [id number] ROSSI HAY Self - patient is the insured Medical (General) History Medical History History ICD Code Hypertension Denies PR,DM,CVA,Lung disease,renal dise ase 3 negative colonoscopies wit [...]
== END 2025-09-26 11:42 | disposition home or self-care (01) ==
LOC: HO.HMCH 10:42
PROVIDERS: PCP Internal Medicine; Visit Provider Internal Medicine
DX: Z00.00 Encounter for general adult medical examination without abnormal findings (principal); I48.20 Chronic atrial fibrillation, unspecified; I77.810 Thoracic aortic ectasia; I10 Essential (primary) hypertension; I73.9 Peripheral vascular disease, unspecified; R73.01 Impaired fasting glucose; E66.9 Obesity, unspecified; N40.1 Benign prostatic hyperplasia with lower urinary tract symptoms; R35.0 Frequency of micturition; K40.90 Unilateral inguinal hernia, without obstruction or gangrene, not specified as recurrent

== ENCOUNTER → 2025-09-26 10:41 | Outpatient (BNVA) | payer MEDICARE, SELFPAY | PROVIDERS: PCP Internal Medicine; Visit Provider Internal Medicine | DX: Z13.31 Encounter for screening for depression (principal) | CPT/HCPCS: 96127 ==